=== PATIENT | female | born 1940 | race Caucasian/White ===

== ENCOUNTER → 2017-12-12 09:29 | Outpatient (CLI) | payer MEDICARE, SELFPAY ==
[2017-12-12 09:37] LABS: Mucous, Urine 0 SEEN /hpf (<or=2+); Red Blood Cells-Urine 0 SEEN /hpf (0-5)
[2017-12-12 12:11] LABS: Absolute Lymphocyte Count 1.45 X10^3/ul (0.83-4.51); Absolute Neutrophil Count 5.1 X10^3/uL (2.0-7.7); Basophil# 0.03 X10^3/uL; Basophil% 0.4 % (0-1); Eosinophil# 0.18 X10^3/uL; Eosinophils% 2.4 % (0-5); Hematocrit 45.4 % (37-47); Hemoglobin 14.3 g/dl (12.0-15.0); Lymphocyte # 1.45 X10^3/ul (4.0); Mean Corp Hgb Conc 31.5 g/gl (32-36); Mean Corpuscular Hgb 28.8 pg (27.0-32.0); Mean Corpuscular Volume 91.5 fL (81-99); Mean Platelet Vol. 11.3 fl (6.2-12.0); Monocyte# 0.86 X10^3/uL; Monocyte% 11.3 % (0-10); Neutrophil # 5.08 X10^3/uL (2.7-7.7); Neutrophil % 66.5 % (47-70); Platelet Count 234 K/mm3 (150-450); RBC Distribution Width CV 13.3 % (11.6-14.6); RBC Distribution Width SD 43.9 fl (35.1-43.9); Red Blood Count 4.96 M/mm3 (4.2-5.4); White Blood Count 7.6 K/mm3 (4.4-11.0)
[2017-12-12 12:17] LABS: Color, Urine Yellow (Yellow); Glucose, Dipstick Normal (Normal); Ketone-Dipstick Negative (Negative); Leukocyte Esterase-Dipstick 25 /ul (Negative); Nitrite-Dipstick Positive (Negative); Occult Blood-Urine Negative /ul (Negative); Protein-Dipstick Negative (Negative); Urine Bilirubin Dipstick Negative (Negative); Urine Clarity Sl. Cloudy (Clear); Urine Urobilinogen Normal (Normal); Urine pH 6.5 (5.0 - 8.0)
[2017-12-12 12:20] LABS: POSITIVE COUNT NO; POSITIVE DIFFERENTIAL NO; POSITIVE MORPHOLOGY NO
[2017-12-12 12:24] LABS: Bacteria 4+ /hpf (None Seen); White Blood Cells 0-5 SEEN /hpf (0-5)
[2017-12-12 12:25] LABS: Squamous Epithelial Cells - UA 0-5 SEEN /hpf (5-10)
[2017-12-12 12:48] LABS: Vitamin B12 688 pg/mL (211-911)
[2017-12-12 12:51] LABS: Hemoglobin A1c 7.2 % (4.2-6.3)
[2017-12-12 12:53] LABS: AST(SGOT) 19 U/L (15-37); Alanine Aminotransfer ALT/SGPT 24 U/L (13-56); Albumin, Serum 3.7 g/dL (3.2-5.0); Alkaline Phosphatase 79 U/L (45-117); Anion Gap 7 (5-15); BUN 22 mg/dL (7-18); BUN/Creat Ratio 23.1 RATIO (10-20); Calcium,Total 9.3 mg/dL (8.5-10.1); Chloride 104 mmol/L (98-107); Cholesterol 144 mg/dL (200); Creatinine, Serum 0.95 mg/dL (0.55-1.02); EST Glomerular Filtration Rate 61 mL/min (>60); Est Glom Filt Rate - Afr Amer 73 mL/min (>60); Globulin 3.8 g/dL (2.2-4.2); Glucose 140 mg/dL (74-106); High Density Lipoprotein 41 mg/dL; Magnesium 2.1 mg/dL (1.6-2.6); Potassium 4.3 mmol/L (3.5-5.1); Protein, Total 7.5 g/dL (6.4-8.2); Sodium Level 140 mmol/L (136-145); Thyroid Stim Hormone (TSH) 1.77 uIU/mL (0.358-3.74); Triglycerides 223 mg/dL; Very Low Density Lipoprotein 45 mg/dL (5-40)
[2017-12-12 13:27] LABS: Microalbumin,Random Urine 5.8 mg/L (NO RANGE EST.); Microalbumin:Creatinine Ratio 11.9 mg/g CRE (<30 mg/g CRE)
[2017-12-17 11:19] LABS: Vitamin B1, Thiamine 122.3 nmol/L (66.5-200.0)
== END ==
PROVIDERS: Family Provider Family Medicine; PCP Family Medicine; Visit Provider Family Medicine
DX: I10 Essential (primary) hypertension (principal); E78.5 Hyperlipidemia, unspecified; E11.40 Type 2 diabetes mellitus with diabetic neuropathy, unspecified; R25.2 Cramp and spasm; N39.0 Urinary tract infection, site not specified
CPT/HCPCS: 36415; 80053; 80061; 81001; 82043; 82570; 82607; 83036; 83735; 84425; 84443; 85025; 87086; 87088; 87186

== ENCOUNTER → 2018-03-24 11:02 | Outpatient (CLI) | payer MEDICARE, SELFPAY ==
[2018-03-24 12:50] LABS: Absolute Lymphocyte Count 1.28 X10^3/ul (0.83-4.51); Absolute Neutrophil Count 5.3 X10^3/uL (2.0-7.7); Basophil# 0.02 X10^3/uL; Basophil% 0.3 % (0-1); Eosinophil# 0.13 X10^3/uL; Eosinophils% 1.7 % (0-5); Hematocrit 43.6 % (37-47); Hemoglobin 13.7 g/dl (12.0-15.0); Lymphocyte # 1.28 X10^3/ul (4.0); Lymphocyte % 16.8 % (19-41); Mean Corp Hgb Conc 31.4 g/gl (32-36); Mean Corpuscular Hgb 28.7 pg (27.0-32.0); Mean Corpuscular Volume 91.2 fL (81-99); Mean Platelet Vol. 11.1 fl (6.2-12.0); Monocyte# 0.82 X10^3/uL; Monocyte% 10.8 % (0-10); Neutrophil # 5.33 X10^3/uL (2.7-7.7); Neutrophil % 70.1 % (47-70); POSITIVE COUNT NO; POSITIVE DIFFERENTIAL NO; POSITIVE MORPHOLOGY NO; Platelet Count 220 K/mm3 (150-450); RBC Distribution Width CV 13.4 % (11.6-14.6); RBC Distribution Width SD 44.2 fl (35.1-43.9); Red Blood Count 4.78 M/mm3 (4.2-5.4); White Blood Count 7.6 K/mm3 (4.4-11.0)
[2018-03-24 13:10] LABS: Hemoglobin A1c 7.3 % (4.2-6.3)
[2018-03-24 13:13] LABS: AST(SGOT) 25 U/L (15-37); Alanine Aminotransfer ALT/SGPT 35 U/L (13-56); Albumin, Serum 3.8 g/dL (3.2-5.0); Alkaline Phosphatase 63 U/L (45-117); Anion Gap 9 (5-15); BUN 24 mg/dL (7-18); BUN/Creat Ratio 23.3 RATIO (10-20); Calcium,Total 8.9 mg/dL (8.5-10.1); Chloride 106 mmol/L (98-107); Creatinine, Serum 1.03 mg/dL (0.55-1.02); EST Glomerular Filtration Rate 55 mL/min (>60); Est Glom Filt Rate - Afr Amer 67 mL/min (>60); Globulin 3.7 g/dL (2.2-4.2); Glucose 110 mg/dL (74-106); Protein, Total 7.5 g/dL (6.4-8.2); Sodium Level 145 mmol/L (136-145)
== END ==
PROVIDERS: Family Provider Family Medicine; PCP Family Medicine; Visit Provider Family Medicine
DX: E11.9 Type 2 diabetes mellitus without complications (principal); I10 Essential (primary) hypertension
CPT/HCPCS: 36415; 80053; 83036; 85025

== ENCOUNTER → 2018-06-25 09:20 | Outpatient (CLI) | payer MEDICARE, SELFPAY ==
[2018-06-25 09:24] LABS: Bacteria 0 SEEN /hpf (None Seen); Mucous, Urine 0 SEEN /hpf (<or=2+); Red Blood Cells-Urine 0 SEEN /hpf (0-5); Squamous Epithelial Cells - UA 0 SEEN /hpf (5-10)
[2018-06-25 12:04] LABS: Color, Urine Yellow (Yellow); Glucose, Dipstick Normal (Normal); Ketone-Dipstick Negative (Negative); Leukocyte Esterase-Dipstick 25 /ul (Negative); Nitrite-Dipstick Negative (Negative); Occult Blood-Urine Negative /ul (Negative); Protein-Dipstick Negative (Negative); Specific Gravity, Urine 1.015 (1.002-1.030); Urine Bilirubin Dipstick Negative (Negative); Urine Clarity Clear (Clear); Urine Urobilinogen Normal (Normal)
[2018-06-25 12:05] LABS: Absolute Lymphocyte Count 1.25 X10^3/ul (0.83-4.51); Absolute Neutrophil Count 6.3 X10^3/uL (2.0-7.7); Basophil# 0.05 X10^3/uL; Basophil% 0.6 % (0-1); Eosinophil# 0.11 X10^3/uL; Eosinophils% 1.3 % (0-5); Hematocrit 46.9 % (37-47); Hemoglobin 15.3 g/dl (12.0-15.0); Lymphocyte # 1.25 X10^3/ul (4.0); Lymphocyte % 14.8 % (19-41); Mean Corp Hgb Conc 32.6 g/gl (32-36); Mean Corpuscular Hgb 29.4 pg (27.0-32.0); Mean Platelet Vol. 11.8 fl (6.2-12.0); Monocyte# 0.77 X10^3/uL; Monocyte% 9.1 % (0-10); Neutrophil # 6.25 X10^3/uL (2.7-7.7); Neutrophil % 73.8 % (47-70); Platelet Count 199 K/mm3 (150-450); RBC Distribution Width CV 13.5 % (11.6-14.6); RBC Distribution Width SD 44.5 fl (35.1-43.9); Red Blood Count 5.21 M/mm3 (4.2-5.4); White Blood Count 8.5 K/mm3 (4.4-11.0)
[2018-06-25 12:09] LABS: White Blood Cells 0-5 SEEN /hpf (0-5)
[2018-06-25 12:12] LABS: POSITIVE COUNT NO; POSITIVE DIFFERENTIAL NO; POSITIVE MORPHOLOGY NO
[2018-06-25 12:15] LABS: AST(SGOT) 20 U/L (15-37); Alanine Aminotransfer ALT/SGPT 35 U/L (13-56); Albumin, Serum 3.7 g/dL (3.2-5.0); Alkaline Phosphatase 68 U/L (45-117); Anion Gap 12 (5-15); BUN 24 mg/dL (7-18); BUN/Creat Ratio 21.6 RATIO (10-20); Calcium,Total 9.2 mg/dL (8.5-10.1); Chloride 103 mmol/L (98-107); Cholesterol 141 mg/dL (200); Creatinine, Serum 1.11 mg/dL (0.55-1.02); EST Glomerular Filtration Rate 51 mL/min (>60); Est Glom Filt Rate - Afr Amer 61 mL/min (>60); Globulin 3.8 g/dL (2.2-4.2); Glucose 134 mg/dL (74-106); High Density Lipoprotein 40 mg/dL; Protein, Total 7.5 g/dL (6.4-8.2); Sodium Level 141 mmol/L (136-145); Triglycerides 220 mg/dL; Very Low Density Lipoprotein 44 mg/dL (5-40)
[2018-06-25 12:20] LABS: Hemoglobin A1c 6.9 % (4.2-6.3)
[2018-06-25 12:32] LABS: Microalbumin,Random Urine 6.2 mg/L (NO RANGE EST.); Microalbumin:Creatinine Ratio 8.5 mg/g CRE (<30 mg/g CRE)
== END ==
PROVIDERS: Family Provider Family Medicine; PCP Family Medicine; Visit Provider Family Medicine
DX: E11.9 Type 2 diabetes mellitus without complications (principal); I10 Essential (primary) hypertension; E78.5 Hyperlipidemia, unspecified
CPT/HCPCS: 36415; 80053; 80061; 81001; 82043; 82570; 83036; 85025

== ENCOUNTER → 2018-10-08 08:56 | Outpatient (CLI) | payer MEDICARE, SELFPAY ==
[2014-09-18 05:53] VITALS: BMI 35.2
[2018-10-08 10:03] LABS: Absolute Lymphocyte Count 1.48 X10^3/ul (0.83-4.51); Absolute Neutrophil Count 5.1 X10^3/uL (2.0-7.7); Basophil# 0.03 X10^3/uL; Basophil% 0.4 % (0-1); Eosinophil# 0.16 X10^3/uL; Eosinophils% 2.1 % (0-5); Hemoglobin 15.2 g/dl (12.0-15.0); Lymphocyte # 1.48 X10^3/ul (4.0); Lymphocyte % 19.7 % (19-41); Mean Corp Hgb Conc 32.3 g/gl (32-36); Mean Corpuscular Hgb 29.7 pg (27.0-32.0); Mean Corpuscular Volume 91.8 fL (81-99); Mean Platelet Vol. 11.2 fl (6.2-12.0); Monocyte# 0.71 X10^3/uL; Monocyte% 9.4 % (0-10); Neutrophil # 5.12 X10^3/uL (2.7-7.7); Platelet Count 217 K/mm3 (150-450); RBC Distribution Width CV 12.8 % (11.6-14.6); RBC Distribution Width SD 41.8 fl (35.1-43.9); Red Blood Count 5.12 M/mm3 (4.2-5.4); White Blood Count 7.5 K/mm3 (4.4-11.0)
[2018-10-08 10:12] LABS: POSITIVE COUNT NO; POSITIVE DIFFERENTIAL NO; POSITIVE MORPHOLOGY NO
[2018-10-08 10:21] LABS: Hemoglobin A1c 7.4 % (4.2-6.3)
[2018-10-08 10:24] LABS: ALB/GLOB Ratio 1.1 RATIO (0.9-2.4); AST(SGOT) 20 U/L (15-37); Alanine Aminotransfer ALT/SGPT 28 U/L (13-56); Albumin, Serum 3.8 g/dL (3.2-5.0); Alkaline Phosphatase 73 U/L (45-117); Anion Gap 7 (5-15); BUN 23 mg/dL (7-18); BUN/Creat Ratio 21.3 RATIO (10-20); Calcium,Total 8.9 mg/dL (8.5-10.1); Chloride 105 mmol/L (98-107); Cholesterol 176 mg/dL (200); Creatinine, Serum 1.08 mg/dL (0.55-1.02); EST Glomerular Filtration Rate 52 mL/min (>60); Est Glom Filt Rate - Afr Amer 63 mL/min (>60); Globulin 3.4 g/dL (2.2-4.2); Glucose 151 mg/dL (74-106); High Density Lipoprotein 42 mg/dL; Potassium 4.2 mmol/L (3.5-5.1); Protein, Total 7.2 g/dL (6.4-8.2); Sodium Level 142 mmol/L (136-145); Triglycerides 300 mg/dL; Very Low Density Lipoprotein 60 mg/dL (5-40)
== END ==
PROVIDERS: Family Provider Family Medicine; PCP Family Medicine; Visit Provider Family Medicine
DX: E11.9 Type 2 diabetes mellitus without complications (principal); I10 Essential (primary) hypertension
CPT/HCPCS: 36415; 80053; 80061; 83036; 85025

== ENCOUNTER → 2018-11-09 09:16 | Outpatient (CLI) | payer MEDICARE, SELFPAY ==
[2014-09-18 05:53] VITALS: BMI 35.2
[2018-11-09 10:11] LABS: Absolute Lymphocyte Count 1.33 X10^3/ul (0.83-4.51); Absolute Neutrophil Count 5.4 X10^3/uL (2.0-7.7); Basophil# 0.03 X10^3/uL; Basophil% 0.4 % (0-1); Eosinophil# 0.15 X10^3/uL; Hematocrit 47.3 % (37-47); Hemoglobin 15.3 g/dl (12.0-15.0); Lymphocyte # 1.33 X10^3/ul (4.0); Lymphocyte % 17.4 % (19-41); Mean Corp Hgb Conc 32.3 g/gl (32-36); Mean Corpuscular Hgb 29.7 pg (27.0-32.0); Mean Corpuscular Volume 91.7 fL (81-99); Mean Platelet Vol. 11.2 fl (6.2-12.0); Monocyte# 0.72 X10^3/uL; Monocyte% 9.4 % (0-10); Neutrophil # 5.38 X10^3/uL (2.7-7.7); Neutrophil % 70.5 % (47-70); Platelet Count 209 K/mm3 (150-450); RBC Distribution Width CV 12.9 % (11.6-14.6); RBC Distribution Width SD 42.6 fl (35.1-43.9); Red Blood Count 5.16 M/mm3 (4.2-5.4); White Blood Count 7.6 K/mm3 (4.4-11.0)
[2018-11-09 10:18] LABS: POSITIVE COUNT NO; POSITIVE DIFFERENTIAL NO; POSITIVE MORPHOLOGY NO
[2018-11-09 10:26] LABS: Hemoglobin A1c 7.6 % (4.2-6.3)
[2018-11-09 10:35] LABS: ALB/GLOB Ratio 0.9 RATIO (0.9-2.4); AST(SGOT) 20 U/L (15-37); Alanine Aminotransfer ALT/SGPT 30 U/L (13-56); Albumin, Serum 3.7 g/dL (3.2-5.0); Alkaline Phosphatase 72 U/L (45-117); Anion Gap 6 (5-15); BUN 22 mg/dL (7-18); BUN/Creat Ratio 22.3 RATIO (10-20); Calcium,Total 9.1 mg/dL (8.5-10.1); Chloride 106 mmol/L (98-107); Cholesterol 146 mg/dL (200); Creatinine, Serum 0.98 mg/dL (0.55-1.02); EST Glomerular Filtration Rate 58 mL/min (>60); Est Glom Filt Rate - Afr Amer 70 mL/min (>60); Globulin 3.9 g/dL (2.2-4.2); Glucose 151 mg/dL (74-106); High Density Lipoprotein 43 mg/dL; Potassium 4.3 mmol/L (3.5-5.1); Protein, Total 7.6 g/dL (6.4-8.2); Sodium Level 141 mmol/L (136-145); Triglycerides 194 mg/dL; Very Low Density Lipoprotein 39 mg/dL (5-40)
== END ==
PROVIDERS: Family Provider Family Medicine; PCP Family Medicine; Visit Provider Family Medicine
DX: E11.9 Type 2 diabetes mellitus without complications (principal); I10 Essential (primary) hypertension; E78.5 Hyperlipidemia, unspecified
CPT/HCPCS: 36415; 80053; 80061; 83036; 85025

== ENCOUNTER → 2019-02-08 | Outpatient (CLI) | payer MEDICARE, SELFPAY ==
[2014-09-18 05:53] VITALS: BMI 35.2
[2019-02-08 09:35] LABS: Mucous, Urine 0 SEEN /hpf (<or=2+); Red Blood Cells-Urine 0 SEEN /hpf (0-5)
[2019-02-08 12:00] LABS: Color, Urine Yellow (Yellow); Glucose, Dipstick Normal (Normal); Ketone-Dipstick Negative (Negative); Leukocyte Esterase-Dipstick 500 /ul (Negative); Nitrite-Dipstick Negative (Negative); Occult Blood-Urine Negative /ul (Negative); Protein-Dipstick Negative (Negative); Specific Gravity, Urine 1.005 (1.002-1.030); Urine Bilirubin Dipstick Negative (Negative); Urine Clarity Sl. Cloudy (Clear); Urine Urobilinogen Normal (Normal)
[2019-02-08 12:08] LABS: Bacteria RARE /hpf (None Seen); Squamous Epithelial Cells - UA 0-5 SEEN /hpf (5-10); White Blood Cells 5-10 SEEN /hpf (0-5)
[2019-02-08 12:10] LABS: Absolute Lymphocyte Count 1.47 X10^3/ul (0.83-4.51); Absolute Neutrophil Count 4.4 X10^3/uL (2.0-7.7); Basophil# 0.04 X10^3/uL; Basophil% 0.6 % (0-1); Eosinophil# 0.16 X10^3/uL; Eosinophils% 2.4 % (0-5); Hemoglobin 14.8 g/dl (12.0-15.0); Lymphocyte # 1.47 X10^3/ul (4.0); Lymphocyte % 21.9 % (19-41); Mean Corp Hgb Conc 32.2 g/gl (32-36); Mean Corpuscular Hgb 28.9 pg (27.0-32.0); Mean Corpuscular Volume 89.8 fL (81-99); Mean Platelet Vol. 11.7 fl (6.2-12.0); Monocyte# 0.63 X10^3/uL; Monocyte% 9.4 % (0-10); Neutrophil # 4.39 X10^3/uL (2.7-7.7); Neutrophil % 65.4 % (47-70); Platelet Count 216 K/mm3 (150-450); RBC Distribution Width SD 42.2 fl (35.1-43.9); Red Blood Count 5.12 M/mm3 (4.2-5.4); White Blood Count 6.7 K/mm3 (4.4-11.0)
[2019-02-08 12:14] LABS: POSITIVE COUNT NO; POSITIVE DIFFERENTIAL NO; POSITIVE MORPHOLOGY NO
[2019-02-08 12:18] LABS: ALB/GLOB Ratio 1.1 RATIO (0.9-2.4); AST(SGOT) 21 U/L (15-37); Alanine Aminotransfer ALT/SGPT 25 U/L (13-56); Albumin, Serum 3.8 g/dL (3.2-5.0); Alkaline Phosphatase 66 U/L (45-117); Anion Gap 4 (5-15); BUN 23 mg/dL (7-18); BUN/Creat Ratio 22.8 RATIO (10-20); Calcium,Total 8.9 mg/dL (8.5-10.1); Chloride 105 mmol/L (98-107); Creatinine, Serum 1.01 mg/dL (0.55-1.02); EST Glomerular Filtration Rate 56 mL/min (>60); Est Glom Filt Rate - Afr Amer 68 mL/min (>60); Globulin 3.5 g/dL (2.2-4.2); Glucose 157 mg/dL (74-106); Protein, Total 7.3 g/dL (6.4-8.2); Sodium Level 137 mmol/L (136-145)
[2019-02-08 12:24] LABS: Microalbumin,Random Urine 10.4 mg/L (NO RANGE EST.); Microalbumin:Creatinine Ratio 21.5 mg/g CRE (<30 mg/g CRE); Protein, Urine (Random) 6.6 mg/dL (<11.9); Protein:Creat Ratio 137 mg/g CRE (0-200)
[2019-02-08 12:25] LABS: Vitamin D,25 Hydroxy 13.9 ng/mL (29.95-100.01)
[2019-02-08 12:28] LABS: Hemoglobin A1c 7.2 % (4.2-6.3)
[2019-02-08 12:37] LABS: PTHIN 56.9 pg/mL (18.4-80.1)
== END | disposition home or self-care (01) ==
PROVIDERS: Family Provider Family Medicine; PCP Family Medicine; Referring Provider Family Medicine; Visit Provider Family Medicine
DX: E11.22 Type 2 diabetes mellitus with diabetic chronic kidney disease (principal); I12.9 Hypertensive chronic kidney disease with stage 1 through stage 4 chronic kidney disease, or unspecified chronic kidney disease; N18.3 Chronic kidney disease, stage 3 (moderate); E11.40 Type 2 diabetes mellitus with diabetic neuropathy, unspecified
CPT/HCPCS: 36415; 80053; 81001; 82043; 82306; 82570; 83036; 83970; 84156; 85025

== ENCOUNTER → 2019-02-09 | Outpatient (CLI) | payer MEDICARE, SELFPAY ==
[2014-09-18 05:53] VITALS: BMI 35.2
--- NOTE | 2019-02-09 11:00 | RAD_ITS ---
STUDY: X-RAY - PELVIS AND BILATERAL HIPS REASON FOR EXAM: Female, 78 years old. Hip pain TECHNIQUE: AP view of the pelvis.? 2 views of the right hip, and 2 views of the left hip were obtained. COMPARISON: None. FINDINGS: There is a non-specific bowel gas pattern. Normal visualized soft tissue structures. Normal bilateral iliac wings, sacroiliac joints and visualized sacrum. Normal bilateral superior and inferior pubic rami. Normal pubic symphysis. Normal bilateral ischial tuberosities. There are osteoarthritic changes of the right femoral head with marginal osteophyte formation. There is osteoarthritic spur formation of the right acetabular rim. There is moderate articular joint space narrowing of the right hip. There are osteoarthritic changes of the left femoral head with marginal osteophyte formation. There is osteoarthritic spur formation of the left acetabular rim. There is moderate articular joint space narrowing of the left hip. RAD/Hips B/L min 2 views w/ Pelvis IMPRESSION: Bilateral hip degenerative changes Electronically Signed: Prashant Egan DO at 10:58 EDT Tel , Service support ,
--- NOTE | 2019-02-09 11:00 | RAD_ITS ---
STUDY: X-RAY - LUMBAR SPINE REASON FOR EXAM: Female, 78 years old. Back pain TECHNIQUE: 5 view(s) of the lumbar spine were obtained. COMPARISON: None FINDINGS: Normal lumbar lordosis. There is no substantial scoliosis. There is a normal alignment of the vertebrae. There is multilevel endplate spondylosis of the lumbar vertebrae. There is multi-level degenerative disc disease with multi-level disc space narrowing. There is no demonstrated fracture. Borderline grade 1 anterolisthesis of L4 and L5. The soft tissue structures are unremarkable. RAD/L/S Spine Min 4 Views IMPRESSION: Degenerative changes of the spine, as detailed above. Electronically Signed: Prashant Egan DO at 9:45 EDT Tel , Service support ,
--- NOTE | 2019-02-09 11:00 | RAD_ITS ---
STUDY: X-RAY - SACROILIAC JOINTS REASON FOR EXAM: Female, 78 years old. Back pain TECHNIQUE: 3 view(s) of the sacroiliac joints were obtained. COMPARISON: None. FINDINGS: Normal bilateral sacroiliac joints. Normal visualized sacral ala and sacrum. Normal visualized iliac bones. Normal visualized soft tissue structures. RAD/S-I Jts 3 or More Views IMPRESSION: Normal x-ray examination of the bilateral sacroiliac joints. There are degenerative changes with disc space narrowing of the lumbosacral junction. There are degenerative changes of the left and right hips. Electronically Signed: Mick Hillman MD at 23:59 EDT , Service support ,
== END | disposition home or self-care (01) ==
PROVIDERS: Family Provider Family Medicine; PCP Family Medicine; Referring Provider Family Medicine; Visit Provider Family Medicine
DX: M54.9 Dorsalgia, unspecified (principal); M25.551 Pain in right hip; M25.552 Pain in left hip
CPT/HCPCS: 72110; 72202; 73521

== ENCOUNTER → 2019-03-02 | Outpatient (CLI) | payer MEDICARE, SELFPAY ==
--- NOTE | 2019-03-02 09:21 | RAD_ITS ---
PROCEDURE: Fluoroscopic guided Hip Injection DATE: March 02, 2019. INDICATION: Female, 78 years old. Chronic hip pain. PHYSICIAN: Kirill Rocha M.D. MEDICATIONS: 40 mg of Kenalog and 4 cc of 1% lidocaine. 2% Lidocaine administered subcutaneously for local anesthesia. ACCESS SITE: Right hip. NEEDLE: 22-gauge spinal needle. FLUOROSCOPY TIME (if supplied): (0:43) minutes/seconds FINDINGS: The risks, benefits, and alternatives to the procedure were explained to the patient. The specific risks of bleeding, infection, and neurovascular injury were detailed and accepted. Witnessed informed consent was obtained. A 22-gauge spinal needle was positioned under radiographic fluoroscopic localization. Approximately 2 cc of Isovue-300 instilled for localization purposes. Medication was then injected. The patient tolerated the procedure well without any immediate complications. RAD/Inj/Asp Mandeep Jt Should/Hip/Knee IMPRESSION: 1. Successful fluoroscopic guided hip injection. Electronically Signed: Kirill Rocha, at 11:10 EDT , Service support ,
== END | disposition home or self-care (01) ==
LOC: RAD 09:19
PROVIDERS: Family Provider Family Medicine; PCP Family Medicine; Referring Provider Family Medicine; Visit Provider Family Medicine
DX: M16.0 Bilateral primary osteoarthritis of hip (principal)
CPT/HCPCS: 20610; 77002

== ENCOUNTER → 2019-05-19 | Outpatient (CLI) | payer MEDICARE, SELFPAY ==
[2019-05-19 10:19] LABS: Absolute Lymphocyte Count 1.37 X10^3/uL (0.83-4.51); Absolute Neutrophil Count 5.2 X10^3/uL (2.0-7.7); Basophil# 0.05 X10^3/uL; Basophil% 0.7 % (0-1); Eosinophil# 0.12 X10^3/uL; Eosinophils% 1.6 % (0-5); Hematocrit 44.9 % (37-47); Hemoglobin 14.3 g/dL (12.0-15.0); Lymphocyte # 1.37 X10^3/ul (4.0); Lymphocyte % 18.1 % (19-41); Mean Corp Hgb Conc 31.8 g/dL (32-36); Mean Corpuscular Hgb 29.4 pg (27.0-32.0); Mean Corpuscular Volume 92.2 fL (81-99); Mean Platelet Vol. 11.3 fl (6.2-12.0); Monocyte% 10.6 % (0-10); NRBC Flagged by Analyzer 0 % (0-5); Neutrophil # 5.17 X10^3/uL (2.7-7.7); Neutrophil % 68.3 % (47-70); Platelet Count 209 K/mm3 (150-450); RBC Distribution Width CV 12.4 % (11.6-14.6); RBC Distribution Width SD 41.7 fl (35.1-43.9); Red Blood Count 4.87 M/mm3 (4.2-5.4); White Blood Count 7.6 K/mm3 (4.4-11.0)
[2019-05-19 10:39] LABS: ALB/GLOB Ratio 0.9 RATIO (0.9-2.4); AST(SGOT) 20 U/L (15-37); Alanine Aminotransfer ALT/SGPT 28 U/L (13-56); Albumin, Serum 3.5 g/dL (3.2-5.0); Alkaline Phosphatase 63 U/L (45-117); BUN 21 mg/dL (7-18); BUN/Creat Ratio 19.6 RATIO (10-20); Calcium,Total 9.2 mg/dL (8.5-10.1); Cholesterol 145 mg/dL (200); Creatinine, Serum 1.07 mg/dL (0.55-1.02); EST Glomerular Filtration Rate 53 mL/min (>60); Est Glom Filt Rate - Afr Amer 64 mL/min (>60); Globulin 3.7 g/dL (2.2-4.2); Glucose 130 mg/dL (74-106); Protein, Total 7.2 g/dL (6.4-8.2); Triglycerides 249 mg/dL
[2019-05-19 10:40] LABS: Anion Gap 6 (5-15); Chloride 102 mmol/L (98-107); High Density Lipoprotein 39 mg/dL; Potassium 3.8 mmol/L (3.5-5.1); Sodium Level 138 mmol/L (136-145); Very Low Density Lipoprotein 50 mg/dL (5-40)
[2019-05-19 10:58] LABS: Vitamin D,25 Hydroxy 60.2 ng/mL (29.95-100.01)
== END | disposition home or self-care (01) ==
LOC: MFPLAB 08:35
PROVIDERS: Family Provider Family Medicine; PCP Family Medicine; Referring Provider Family Medicine; Visit Provider Family Medicine
DX: E11.9 Type 2 diabetes mellitus without complications (principal); E78.5 Hyperlipidemia, unspecified; E55.9 Vitamin D deficiency, unspecified; I10 Essential (primary) hypertension
CPT/HCPCS: 36415; 80053; 80061; 82306; 83036; 85025

== ENCOUNTER 2019-07-12 09:25 | Day surgery (SDC) | payer MEDICARE, SELFPAY ==
[2014-09-18 05:53] VITALS: BMI 35.2
[2019-07-12] MEDS: MethylPREDNISolone Acetate 80 MG/ML Vial (10:20)
[2019-07-12 10:27] VITALS: BP 115/68; PULSE 66; RESP 16; TEMP 36.5; O2SAT 94; BMI 32.5
[2019-07-12] MEDS: Lactated Ringers 1,000 ML 100 ML IV (10:41)
[2019-07-12 10:45] LABS: Bedside Glucose 140 mg/dL (70-110)
--- NOTE | 2019-07-12 11:00 | RAD_ITS ---
PROCEDURE: Fluoroscopy for caudal block injection DATE OF EXAMINATION: 07/12/2019 INDICATION: Female, 79 years old. Pain PHYSICIAN: Dr. Wesly Lynn FLUOROSCOPY TIME (if supplied): (0:08) minutes/seconds RADIATION DOSAGE (If Supplied By Facility): ( 3.53 ) mGy, A caudal block injection was performed direction of Dr. Lynn incomplete to Dr. Lynn satisfaction. 2 fluoroscopic images were submitted for review. RAD/Fluor Guidance for Spine Inj IMPRESSION: 2 fluoroscopic images were obtained and completed to Dr. Lynn's satisfaction. Electronically Signed: Satish Hartmann, at 11:56 EDT Tel , Service support ,
[2019-07-12] MEDS: Bupivacaine 0.25% 30 ML Vial (11:21)
[2019-07-12 11:25] VITALS: BP 115/68; BP 94/49; PULSE 62; RESP 18; TEMP 36.1; O2SAT 97
[2019-07-12 11:30] VITALS: BP 115/68; BP 92/74; PULSE 77; RESP 18; O2SAT 96
[2019-07-12 11:35] VITALS: BP 105/50; BP 115/68; PULSE 65; RESP 18; O2SAT 96
[2019-07-12 11:40] VITALS: BP 104/49; BP 115/68; PULSE 55; RESP 18; TEMP 36.9; O2SAT 92
[2019-07-12 12:10] VITALS: BP 115/68
--- NOTE | 2019-07-12 12:42 | OP.PCM_ITS ---
Report of Operation Date of Procedure: 07/12/19 Description of Surgical Findings:: PREOPERATIVE DIAGNOSIS: Lumbosacral radiculopathy, lumbosacral degenerative disc disease, lumbosacral spinal stenosis POSTOPERATIVE DIAGNOSIS: Lumbar sacral radiculopathy, lumbosacral degenerative disc disease, lumbosacral spinal stenosis PROCEDURE PERFORMED: Caudal epidural steroid injection. ANESTHESIA: MAC. BLOOD LOSS: Minimal. COMPLICATIONS: None. DESCRIPTION OF PROCEDURE: History and physical of today was reviewed. Risks and benefits of the procedure were explained. The patient understood and agreed to proceed. Informed consent was obtained. IV inserted per routine protocol. The patient was taken to the operating room and placed in the prone position with a pillow positioned underneath the abdomen. The lower back and tailbone area was prepped and draped in a sterile fashion using iodine x3. Under f luoroscopy guidance on a lateral view, the caudal space was identified. The skin and subcutaneous tissue was anesthetized with approximately 3 mL of 1% lidocaine using a 25-gauge regular needle. Under direct visualization with fluoroscopy, using a 22-gauge 3-1/2-inch spinal needle, the needle was advanced via the skin through the sacral hiatus. The tip of the needle was passed through the sacrococcygeal ligament and advanced to approximately S4 area. After negative aspiration of blood or CSF, a total of 3 mL of contrast was injected to confirm correct placement of the needle as well as cephalad spread. The spread was followed to approximately L5 area. After confirmation on AP as well as lateral view and repeated negative aspiration, a total of 15 mL of preservative-free 0.125% Marcaine with 80 mg of Depo-Medrol was injected easily. The needle was then removed intact. The patient experienced no sign or symptoms of intrathecal or intravascular injection. The patient experienced no paresthesia. The procedure was completed without any apparent difficulty or any complications. The patient appeared to tolerate it well. ASSESSMENT AND PLAN: This is an 79-year-old female with lumbosacral radiculopathy, lumbosacral degenerative disc disease, lumbosacral spinal stenosis status post caudal epidural steroid injection patient will continue her current medications patient found approximately 2 weeks for reevaluation.
== END 2019-07-12 12:12 | disposition home or self-care (01) ==
LOC: SDC 09:33 → AC 10:20
PROVIDERS: Family Provider Family Medicine; PCP Family Medicine; Referring Provider Anesthesiology Pain Medicine; Visit Provider Anesthesiology Pain Medicine
PROC: 3E0S3BZ Introduction of Anesthetic Agent into Epidural Space, Percutaneous Approach (ICD-10-PCS; CPT 62282; principal; 2019-07-12 10:55)
DX: M47.27 Other spondylosis with radiculopathy, lumbosacral region (principal); M51.17 Intervertebral disc disorders with radiculopathy, lumbosacral region; M48.07 Spinal stenosis, lumbosacral region; M46.96 Unspecified inflammatory spondylopathy, lumbar region; M19.90 Unspecified osteoarthritis, unspecified site; E11.40 Type 2 diabetes mellitus with diabetic neuropathy, unspecified; E78.00 Pure hypercholesterolemia, unspecified; E11.22 Type 2 diabetes mellitus with diabetic chronic kidney disease; I12.9 Hypertensive chronic kidney disease with stage 1 through stage 4 chronic kidney disease, or unspecified chronic kidney disease; N18.9 Chronic kidney disease, unspecified; K21.9 Gastro-esophageal reflux disease without esophagitis; Z78.0 Asymptomatic menopausal state; Z79.891 Long term (current) use of opiate analgesic; Z79.84 Long term (current) use of oral hypoglycemic drugs; Z79.899 Other long term (current) drug therapy
CPT/HCPCS: 62323; 64483; 77003; 82962; J7120; J3490

== ENCOUNTER 2019-08-19 14:00 | Outpatient (RCR) | payer MEDICARE, SELFPAY ==
[2014-09-18 05:53] VITALS: BMI 35.2
--- NOTE | 2019-06-30 09:55 | HP.PTEVAL ---
Patient's Visit Information JACOB MCCALL is a 79 year old F referred to Physical Therapy by TAIWO Bland with a diagnosis of PAIN IN RIGHT HIP JOINT,LUMBOSACRAL RADICULOPATHY,DDD OF LUMBOSACRAL. Date of Evaluation: 06/30/19 Physical Therapist: Michael Pendleton, PT, Cert MDT, OCS - Visit Plan Frequency: 2x /Week Duration: 4 Weeks Plan: PT INTERVENTIONS AQUATICS HIP ROM /LUMBAR ,STRENGTHENING BLE,DLS,POSTURAL E'X,ENDURANCE - Subjective Findings: This 79 y/o female presents to physical therapy with lumbar and right hip pain. Patient has. back pain many years. Patient reports pain pain past 9 months with hip pain increasing and has radicular symptoms radiating right leg. Patient has had pain managenment with injections. Patient plans to have epidural injection next month. Aggraveting factors walking/standing ,stairs,lifting affdects ADL's. Alleviating facors sitting ,rest . Patient denies parathesai/tingling. Bowel/bladder -. Coughing/sneezing-. Patient pain affects slepping. Patient symmptoms affects housework tasks and ADL'S. Condition affects QOL.PMH: Bilateral THR. SOCIAL: . VOCATION: retired - Pain Left Pain Intensity (Out of 10): 3 Pain Intensity Range: 10 Right Lower Extremity Pain Intensity (Out of 10): 6 Pain Intensity Range: 10 Right Hip Pain Intensity (Out of 10): 6 Pain Intensity Range: 10 - Objective POSTURE: mild foward posture hip/knees flexed. GAIT: ambulates with antalgic gait decrease stance time RLE. PALPATION: tender SI/LS. SYMMTRIES: pelvis assymtries. FLEXABLITY: hams min loss,piriformis mod limited. PROM: HIP flexion 90 degrees pain,hip abd 30 degrees,IR 20 degrees. NEURO: denies parathesia/tingling reflexes L3-4,L4-5,L5-S1 1/3. MMT: quads/hams 4/5,hip flexion 3+/5 R ,L 4-/5,hip abd 3+/5 BILATERAL,ankle 4/5. + LUMBAR QUANDRANT R-L - Special Tests L/S Slump test left side: Negative L/S Slump test right side: Negative L/S Left Straight Leg Raise: Negative L/S Right Straight Leg Raise: Positive Lumbar Standing: Flexion - Mechanical Response: No effect Lumbar Standing: Flexion - Symptoms During Testing: No effect Lumbar Standing: Flexion - Symptoms After Testing: No effect Lumbar Standing: Extension - Mechanical Response: No effect Lumbar Standing: Extension - Symptoms During Testing: Increases Lumbar Standing: Extension - Symptoms After Testing: Worse R Hip Scour: Positive - Goals Goal 1:: Patient to be Independant with Aquatic PT Goal Time Frame: 4-6 Weeks Goal 2:: Patient decrease hip and back radicular symptoms by 50% or greater to improve QOL and function. Goal Time Frame: 4-6 Weeks Goal 3:: Patient to improve right ROM and lumbar ROM for function of recovery Goal Time Frame: 4-6 Weeks Goal 4:: Patient to increase strength hip to 4-/5 to improved gait Goal Time Frame: 4-6 Weeks Goal 5:: Patient to improve back owestry score by 5 points > to improve QOL Goal Time Frame: 4-6 Weeks - Rehabilitation Potential Physical Therapy Diagnosis: This patient has roght hip pain with possible DJD along with lateral stenosis with pain in right hip and leg worse with walking and standing with pain ,decrease ROM lumbar and hip ,strength hip thus benifit from skilled PT Rehabilitation Potential: Good - Anticipated Interventions Patient/Client Instruction: Educate patient on: Condition, Plan of Care For the Purpose of:: To decrease pain, To increase ROM, To improve muscle performance and motor function, To improve ability to perform ADL's, To increase tolerance to activity/condition/position, To improve ability of physical actions for home/community/work/leisure, To improve health of tissue, To decrease soft tissue restriction, To improve endurance, To improve ability to perform tasks related to life management Therapeutic Exercise to Include: Strength training, Postural training, Flexibilty training, In an aquatic setting, Active ROM, Dynamic Lumbar Stabilization Comment: HIP/KNEE For the Purpose of:: To decrease pain, To increase ROM, To improve muscle performance and motor function, To improve ability to perform ADL's, To increase tolerance to activity/condition/position, To improve ability of physical actions for home/community/work/leisure, To improve health of tissue, To increase flexibility/ROM, To improve endurance, To reduce risk of recurrence, To improve ability to perform tasks related to life management Thank you for the opportunity to evaluate your patient. For Medicare and Medicare HMO plans, please review the plan of care and approve it. It will need to be FAXED BACK to us at [phone] for Medicare purposes. For Medicare only, by signing this I certify the plan of care. Please let me know if there are questions or concerns regarding this plan of care. Physician Signature: Date:
--- NOTE | 2019-07-29 12:00 | HP.PTREVAL ---
Tabitha Turpin, SYLVESTER-C, It has been my pleasure to treat JACOB MCCALL over the last 7 visits for PAIN IN RIGHT HIP JOINT,LUMBOSACRAL RADICULOPATHY,DDD OF LUMBOSACRAL. Please see the progress note below for an update on the physical therapy plan of care! Subjective: My hip and back is better with and had epidural injections.Overall I feel better with ADLS' and housework. Standing limited ,walking extended distance limited Objective/Function: POSTURE: mild foward posture. GAIT: mild foward posture anatlgic gait. AROM:right hip flexion 95 degrees,hip abd 35 degrees,IR 30 degrees. MMT: quads/hams 4-/5,hip flexion 4-/5,abd 3+/5. LUMBAR ROM: flexion min ,extension mod loss ,side glides mod loss Plan Plan: CONT WITH POC 2XWK FOR 4WEEKS AQUATIC PT HIP/LUMBAR ROM.STRENGTHNEING,DLS ,ENDURANCE Goals Goal 1:: Patient to be Independant with Aquatic PT Goal Time Frame: 4-6 Weeks Goal Progress: Progressing Goal 2:: Patient decrease hip and back radicular symptoms by 80% or greater to improve QOL and function. Goal Time Frame: 4-6 Weeks Goal Progress: Progressing Goal 3:: Patient to improve right ROM and lumbar ROM for function of recovery Goal Time Frame: 4-6 Weeks Goal Progress: Progressing Goal 4:: Patient to increase strength hip to 4-/5 to improved gait Goal Time Frame: 4-6 Weeks Goal Progress: Progressing Goal 5:: Patient to improve back owestry score by 5 points > to improve QOL Goal Time Frame: 4-6 Weeks Goal Progress: Progressing Anticipated Interventions Patient/Client Instruction: Educate patient on: Condition, Plan of Care For the Purpose of:: To decrease pain, To increase ROM, To improve muscle performance and motor function, To improve ability to perform ADL's, To increase tolerance to activity/condition/position, To improve ability of physical actions for home/community/work/leisure, To improve health of tissue, To decrease soft tissue restriction, To improve endurance, To improve ability to perform tasks related to life management Therapeutic Exercise to Include: Strength training, Postural training, Flexibilty training, In an aquatic setting, Active ROM, Dynamic Lumbar Stabilization Comment: HIP/KNEE For the Purpose of:: To decrease pain, To increase ROM, To improve muscle performance and motor function, To improve ability to perform ADL's, To increase tolerance to activity/condition/position, To improve ability of physical actions for home/community/work/leisure, To improve health of tissue, To increase flexibility/ROM, To improve endurance, To reduce risk of recurrence, To improve ability to perform tasks related to life management Please do not hesitate to contact me at [phone] by phone or if you have questions or concerns regarding this new plan of care! Sincerely, Michael Pendleton, PT, Cert MDT, OCS
--- NOTE | 2019-08-31 10:58 | HP.PT.NRP ---
HP - Discharge Summary (1) - Patient Information JACOB MCCALL was seen in my office for initial evaluation on 06/30/19. The following Plan of Care was established for this patient: Initial Frequency: 2x /Week Initial Duration: 4 Weeks - Anticipated Interventions Patient/Client Instruction: Educate patient on: Condition, Plan of Care For the Purpose of:: To decrease pain, To increase ROM, To improve muscle performance and motor function, To improve ability to perform ADL's, To increase tolerance to activity/condition/position, To improve ability of physical actions for home/community/work/leisure, To improve health of tissue, To decrease soft tissue restriction, To improve endurance, To improve ability to perform tasks related to life management Therapeutic Exercise to Include: Strength training, Postural training, Flexibilty training, In an aquatic setting, Active ROM, Dynamic Lumbar Stabilization For the Purpose of:: To decrease pain, To increase ROM, To improve muscle performance and motor function, To improve ability to perform ADL's, To increase tolerance to activity/condition/position, To improve ability of physical actions for home/community/work/leisure, To improve health of tissue, To increase flexibility/ROM, To improve endurance, To reduce risk of recurrence, To improve ability to perform tasks related to life management This patient was last seen in our office . Pertinent comments regarding their Physical therapy will appear below: Patient was seen for PT Aquatic therapy for DLS,postural ex's,LE flexablity ,strengthening for 10 visits,then d/c due having injections. At this point I will be discontinuing this patient from physical therapy. I would be happy to see this patient again in the future if found appropriate by the physician. Thank you! Michael Pendleton, PT, Cert MDT, OCS
== END 2019-08-19 19:00 | disposition home or self-care (01) ==
LOC: PT 14:00
PROVIDERS: Family Provider Family Medicine; PCP Family Medicine; Referring Provider Nurse Practitioner Family; Visit Provider Nurse Practitioner Family
DX: M25.551 Pain in right hip (principal); M51.37 Other intervertebral disc degeneration, lumbosacral region; M47.817 Spondylosis without myelopathy or radiculopathy, lumbosacral region; M54.17 Radiculopathy, lumbosacral region; M48.07 Spinal stenosis, lumbosacral region; M46.96 Unspecified inflammatory spondylopathy, lumbar region
CPT/HCPCS: 97113; 97162; 97530

== ENCOUNTER → 2019-08-24 09:01 | Outpatient (CLI) | payer MEDICARE, SELFPAY ==
[2019-08-24 10:18] LABS: AST(SGOT) 18 U/L (15-37); Alanine Aminotransfer ALT/SGPT 24 U/L (13-56); Albumin, Serum 3.6 g/dL (3.2-5.0); Alkaline Phosphatase 70 U/L (45-117); Anion Gap 2 (5-15); BUN 25 mg/dL (7-18); Calcium,Total 9.4 mg/dL (8.5-10.1); Chloride 106 mmol/L (98-107); Creatinine, Serum 1.04 mg/dL (0.55-1.02); EST Glomerular Filtration Rate 54 mL/min (>60); Est Glom Filt Rate - Afr Amer 66 mL/min (>60); Globulin 3.6 g/dL (2.2-4.2); Glucose 137 mg/dL (74-106); Potassium 4.5 mmol/L (3.5-5.1); Protein, Total 7.2 g/dL (6.4-8.2); Sodium Level 141 mmol/L (136-145)
[2019-08-24 10:27] LABS: Hemoglobin A1c 7.3 % (4.2-6.3)
[2019-08-24 10:34] LABS: Vitamin D,25 Hydroxy 27.2 ng/mL (29.95-100.01)
== END ==
PROVIDERS: Family Provider Family Medicine; PCP Family Medicine; Referring Provider Family Medicine; Visit Provider Family Medicine
DX: E11.40 Type 2 diabetes mellitus with diabetic neuropathy, unspecified (principal); E55.9 Vitamin D deficiency, unspecified
CPT/HCPCS: 36415; 80053; 82306; 83036

== ENCOUNTER 2019-10-11 09:21 | Day surgery (SDC) | payer MEDICARE, SELFPAY ==
[2019-10-11] VITALS (7 sets, daily range): BP systolic 109–136; BP diastolic 55–68; PULSE 57–63; RESP 16–18; TEMP 36.6–37; O2SAT 92–95; BMI 33.7
[2019-10-11] MEDS: Lactated Ringers 1,000 ML 100 ML IV (10:04)
[2019-10-11 10:10] LABS: Bedside Glucose 158 mg/dL (70-110)
--- NOTE | 2019-10-11 10:57 | RAD_ITS ---
STUDY: Fluoroscopy LUMBAR SPINE REASON FOR EXAM: Female, 79 years old. Intra-articular injection L3-S1, 4 spots TECHNIQUE: Fluoroscopy 4 view(s) of the lumbar spine were obtained. The fluoroscopy time was not provided. COMPARISON: None FINDINGS: 4 images are demonstrated of the lumbar spine with localization needles at the level of L3-L4 and L5. RAD/L/S Spine Min 4 Views IMPRESSION: Fluoroscopic images with procedure in progress. Electronically Signed: Maria Isabel Ahumada MD at 17:54 EST Tel , Service support ,
[2019-10-11] MEDS: Bupivacaine 0.25% 30 ML Vial (11:02)
[2019-10-11] MEDS: MethylPREDNISolone Acetate 80 MG/ML Vial (11:02)
--- NOTE | 2019-10-11 11:07 | OP.PCM_ITS ---
Report of Operation Date of Procedure: 10/11/19 Description of Surgical Findings:: PREOPERATIVE DIAGNOSIS: Lumbosacral spondylosis, lumbosacral degenerative disc disease, lumbar facet arthropathy POSTOPERATIVE DIAGNOSIS: Lumbosacral spondylosis, lumbosacral degenerative disc disease, lumbar facet arthropathy PROCEDURE PERFORMED: Left-sided lumbar facet steroid injection, L3, L4, L5, and S1. ANESTHESIA: MAC. BLOOD LOSS: Minimal. COMPLICATIONS: None. DESCRIPTION OF PROCEDURE: History and physical of today was reviewed. Risks and benefits of the procedure were explained. The patient understood and agreed to proceed. Informed consent was obtained. IV inserted per routine protocol. The patient was taken to the operating room and placed in the prone position with a pillow positioned underneath the abdomen. The left side of her lower back was prepped and draped in a sterile fashion using iodine x3. Under fluoroscopy on oblique view, the L3 through S1 vertebral bodies were visualized. The skin and subcutaneous tissue was anesthetized with approximately 5 mL of 1% lidocaine using a 25-gauge regular needle. Under direct visualization with fluoroscopy, at approximately 25-degree angle starting on the left L3, ending on the left S1, passing through the L4 and L5, using a 22-gauge 3-1/2-inch spinal needle, the needle was advanced via the skin. The tip of the needle was maneuvered and directed towards the superior medial gutter of the transverse process at the vicinity of the medial branch. Once tip of the needle was in contact with the bone, the needle was pulled approximately 2 mm off the bone. A fter negative aspiration of blood or CSF and confirmation on AP as well as oblique view, a total of 8 mL of preservative-free 0.25% Marcaine with 80 mg of Depo-Medrol was injected in divided doses between those four levels. The needles were then removed intact. The patient experienced no sign or symptoms of intrathecal or intravascular injection. The patient experienced no paresthesia. The procedure was completed without any apparent difficulty or any complications. The patient appeared to tolerate it well. ASSESSMENT AND PLAN: This is a 79-year-old female with lumbosacral spondylosis, lumbosacral degenerative disc disease, lumbar facet arthropathy status post left-sided lumbar facet steroid injection L3-S1 patient will continue her current medications patient found approximately 2 weeks for reevaluation
== END 2019-10-11 12:02 | disposition home or self-care (01) ==
LOC: SDC 09:30 → AC 09:30
PROVIDERS: Family Provider Family Medicine; PCP Family Medicine; Referring Provider Anesthesiology Pain Medicine; Visit Provider Anesthesiology Pain Medicine
PROC: 3E0T3BZ Introduction of Anesthetic Agent into Peripheral Nerves and Plexi, Percutaneous Approach (ICD-10-PCS; CPT 64493; principal; 2019-10-11 10:40)
DX: M47.27 Other spondylosis with radiculopathy, lumbosacral region (principal); M51.17 Intervertebral disc disorders with radiculopathy, lumbosacral region; M46.96 Unspecified inflammatory spondylopathy, lumbar region; M48.07 Spinal stenosis, lumbosacral region; E11.22 Type 2 diabetes mellitus with diabetic chronic kidney disease; E11.40 Type 2 diabetes mellitus with diabetic neuropathy, unspecified; I12.9 Hypertensive chronic kidney disease with stage 1 through stage 4 chronic kidney disease, or unspecified chronic kidney disease; N18.9 Chronic kidney disease, unspecified; M19.90 Unspecified osteoarthritis, unspecified site; E78.5 Hyperlipidemia, unspecified; K21.9 Gastro-esophageal reflux disease without esophagitis; Z79.84 Long term (current) use of oral hypoglycemic drugs; Z79.891 Long term (current) use of opiate analgesic; Z79.899 Other long term (current) drug therapy
CPT/HCPCS: 01992; 64493; 64494; 64495; 64483; 72110; 82962; J7120

== ENCOUNTER 2019-11-08 06:51 | Day surgery (SDC) | payer MEDICARE, SELFPAY ==
[2019-10-11 09:47] VITALS: BMI 33.7
--- NOTE | 2019-11-08 07:00 | RAD_ITS ---
PROCEDURE: Right L3-S1 facet joint block. DATE OF EXAMINATION: November 08, 2019. INDICATION: Female, 79 years old. Chronic back pain. FLUOROSCOPY TIME (if supplied): (13 seconds) minutes/seconds Intraoperative fluoroscopic services provided for right L3-S1 facet joint block. RAD/L/S Spine Min 4 Views IMPRESSION: Intraoperative imaging provided for right L3-S1 facet joint block. Electronically Signed: Kirill Rocha, at 12:23 EST , Service support ,
[2019-11-08 07:21] VITALS: BP 129/63; PULSE 60; RESP 15; TEMP 36.9; O2SAT 97; BMI 33.9
[2019-11-08] MEDS: Lactated Ringers 1,000 ML 100 ML IV (07:34)
[2019-11-08 07:40] LABS: Bedside Glucose 149 mg/dL (70-110)
[2019-11-08] MEDS: MethylPREDNISolone Acetate 80 MG/ML Vial (07:53)
[2019-11-08] MEDS: Bupivacaine 0.25% 30 ML Vial (07:58)
[2019-11-08 08:05] VITALS: BP 129/63; BP 135/114; PULSE 67; RESP 16; TEMP 36.9; O2SAT 94
[2019-11-08 08:10] VITALS: BP 120/59; BP 129/63; PULSE 65; RESP 16; O2SAT 94
[2019-11-08 08:15] VITALS: BP 129/63; BP 136/63; PULSE 60; RESP 16; O2SAT 96
[2019-11-08 08:20] VITALS: BP 124/74; BP 129/63; PULSE 59; RESP 16; TEMP 36.6; O2SAT 98
[2019-11-08 08:40] VITALS: BP 129/63
--- NOTE | 2019-11-08 13:54 | OP.PCM_ITS ---
Report of Operation Date of Procedure: 11/08/19 Description of Surgical Findings:: PROCEDURE: Right-sided lumbar facet steroid injection L3, L4, L5, S1 PREOPERATIVE DIAGNOSIS: Lumbosacral spondylosis, lumbosacral degenerative disc disease, and lumbar facet arthropathy POSTOPERATIVE DIAGNOSIS: Lumbosacral spondylosis, lumbosacral degenerative disc disease, and lumbar facet arthropathy ANESTHESIA: MAC COMPLICATIONS: None BLOOD LOSS: Minimal PROCEDURE IN DETAIL: History and physical today was reviewed. Risks and benefits of the procedure were explained. The patient understood, agreed to our procedure, and informed consent was obtained. IV inserted per routine protocol. The patient was taken to the operating room, placed in a prone position with a pillow positioned underneath the abdomen. The right side of his lower back was prepped and draped in a sterile fashion using iodine x3. Under fluoroscopy guidance, on AP view, L3 through S1 vertebral bodies were visualized. Skin and subcutaneous tissues were anesthetized with approximately 5 mL of 1% lidocaine using a 25-gauge regular needle. Under direct visualization with fluoroscopy at approximately 25-degree angle, starting on the right L3, ending on the right S1, passing through the L4-L5 using a 22-gauge 3 1/2-inch spinal needle, the needle was advanced via the skin. The tip of the needle was maneuvered and directed towards the superior and medial gutter of the transverse process at the vicinity of the medial branch. Once the tip of the needle was in contact with the bone, the needle pulled approximately 2 mm off the bone. After negative aspiration of blood with CSF and confirmation of AP as well as oblique view, a total of 8 mL of preservative-free 0.25% Marcaine with 80 mg of Depo- Medrol was injection in divided doses between those 4 levels. The needles were then removed intact. The patient experienced no signs or symptoms intrathecal, intravascular injection. The patient experienced no paraesthesia. The procedure was completed without any apparent difficult, any complication. The patient appeared to tolerate well. ASSESSMENT AND PLAN: This is a 79-year-old female with Lumbosacral spondylosis, lumbosacral degenerative disc disease, and lumbar facet arthropathy, status post right-sided lumbar facet steroid injection L3 through S1. The patient will continue her current medications. The patient will follow in approximately 2 weeks for reevaluation.
== END 2019-11-08 08:49 | disposition home or self-care (01) ==
LOC: SDC 06:54 → AC 06:56
PROVIDERS: PCP Family Medicine; Referring Provider Anesthesiology Pain Medicine; Visit Provider Anesthesiology Pain Medicine
PROC: 3E0T3BZ Introduction of Anesthetic Agent into Peripheral Nerves and Plexi, Percutaneous Approach (ICD-10-PCS; CPT 64493; principal; 2019-11-08 08:05)
DX: M47.27 Other spondylosis with radiculopathy, lumbosacral region (principal); M51.17 Intervertebral disc disorders with radiculopathy, lumbosacral region; M46.96 Unspecified inflammatory spondylopathy, lumbar region; M48.07 Spinal stenosis, lumbosacral region; M19.90 Unspecified osteoarthritis, unspecified site; E11.40 Type 2 diabetes mellitus with diabetic neuropathy, unspecified; E11.22 Type 2 diabetes mellitus with diabetic chronic kidney disease; I12.9 Hypertensive chronic kidney disease with stage 1 through stage 4 chronic kidney disease, or unspecified chronic kidney disease; N18.9 Chronic kidney disease, unspecified; E78.5 Hyperlipidemia, unspecified; K21.9 Gastro-esophageal reflux disease without esophagitis; Z79.891 Long term (current) use of opiate analgesic; Z79.899 Other long term (current) drug therapy
CPT/HCPCS: 64493; 64494; 64495; 64483; 72110; 82962; J7120

== ENCOUNTER → 2019-12-20 09:34 | Outpatient (CLI) | payer MEDICARE, SELFPAY ==
[2019-12-20 12:45] LABS: Absolute Lymphocyte Count 1.44 X10^3/uL (0.83-4.51); Absolute Neutrophil Count 5.3 X10^3/uL (2.0-7.7); Basophil# 0.06 X10^3/uL; Basophil% 0.8 % (0-1); Eosinophil# 0.14 X10^3/uL; Eosinophils% 1.8 % (0-5); Hematocrit 47.1 % (37-47); Hemoglobin 14.8 g/dL (12.0-15.0); Lymphocyte # 1.44 X10^3/ul (4.0); Lymphocyte % 18.2 % (19-41); Mean Corp Hgb Conc 31.4 g/dL (32-36); Mean Corpuscular Hgb 29.1 pg (27.0-32.0); Mean Corpuscular Volume 92.7 fL (81-99); Mean Platelet Vol. 11.5 fl (6.2-12.0); Monocyte# 0.89 X10^3/uL; Monocyte% 11.3 % (0-10); NRBC Flagged by Analyzer 0 % (0-5); Neutrophil % 66.9 % (47-70); Platelet Count 225 K/mm3 (150-450); RBC Distribution Width CV 12.7 % (11.6-14.6); RBC Distribution Width SD 43.3 fl (35.1-43.9); Red Blood Count 5.08 M/mm3 (4.2-5.4); White Blood Count 7.9 K/mm3 (4.4-11.0)
[2019-12-20 13:04] LABS: Vitamin D,25 Hydroxy 43.6 ng/mL
[2019-12-20 13:26] LABS: Hemoglobin A1c 7.5 % (4.2-6.3)
[2019-12-20 13:29] LABS: ALB/GLOB Ratio 0.9 RATIO (0.9-2.4); AST(SGOT) 16 U/L (15-37); Alanine Aminotransfer ALT/SGPT 22 U/L (13-56); Albumin, Serum 3.4 g/dL (3.2-5.0); Alkaline Phosphatase 66 U/L (45-117); Anion Gap 7 (5-15); BUN 20 mg/dL (7-18); BUN/Creat Ratio 19.8 RATIO (10-20); Calcium,Total 9.2 mg/dL (8.5-10.1); Chloride 105 mmol/L (98-107); Cholesterol 142 mg/dL (200); Creatinine, Serum 1.01 mg/dL (0.55-1.02); EST Glomerular Filtration Rate 56 mL/min (>60); Est Glom Filt Rate - Afr Amer 68 mL/min (>60); Globulin 3.7 g/dL (2.2-4.2); Glucose 132 mg/dL (74-106); High Density Lipoprotein 38 mg/dL; Potassium 4.2 mmol/L (3.5-5.1); Protein, Total 7.1 g/dL (6.4-8.2); Sodium Level 140 mmol/L (136-145); Triglycerides 215 mg/dL; Very Low Density Lipoprotein 43 mg/dL (5-40)
[2019-12-20 16:54] LABS: Microalbumin,Random Urine 70.8 mg/L (NO RANGE EST.); Microalbumin:Creatinine Ratio 129.4 mg/g CRE (<30 mg/g CRE); Protein, Urine (Random) 17.8 mg/dL (<11.9); Protein:Creat Ratio 325 mg/g CRE (0-200)
== END ==
PROVIDERS: PCP Family Medicine; Referring Provider Family Medicine; Visit Provider Family Medicine
DX: E11.22 Type 2 diabetes mellitus with diabetic chronic kidney disease (principal); I12.9 Hypertensive chronic kidney disease with stage 1 through stage 4 chronic kidney disease, or unspecified chronic kidney disease; N18.3 Chronic kidney disease, stage 3 (moderate); E78.5 Hyperlipidemia, unspecified; E55.9 Vitamin D deficiency, unspecified
CPT/HCPCS: 36415; 80053; 80061; 82043; 82306; 82570; 83036; 84156; 85025

== ENCOUNTER → 2020-04-25 08:33 | Outpatient (CLI) | payer MEDICARE, SELFPAY ==
[2020-04-25 08:37] LABS: Mucous, Urine 0 SEEN /hpf (<or=2+)
[2020-04-25 09:53] LABS: Color, Urine Yellow (Yellow); Glucose, Dipstick Normal (Normal); Ketone-Dipstick Negative (Negative); Leukocyte Esterase-Dipstick 500 /ul (Negative); Nitrite-Dipstick Positive (Negative); Occult Blood-Urine 10 /ul (Negative); Protein-Dipstick 30 mg/dl (Negative); Specific Gravity, Urine 1.005 (1.002-1.030); Urine Bilirubin Dipstick Negative (Negative); Urine Clarity Sl. Cloudy (Clear); Urine Urobilinogen Normal (Normal)
[2020-04-25 09:55] LABS: Absolute Lymphocyte Count 1.16 X10^3/uL (0.83-4.51); Absolute Neutrophil Count 4.3 X10^3/uL (2.0-7.7); Basophil# 0.04 X10^3/uL; Basophil% 0.6 % (0-1); Eosinophils% 3.1 % (0-5); Hematocrit 43.9 % (37-47); Hemoglobin 13.6 g/dL (12.0-15.0); Lymphocyte # 1.16 X10^3/ul (4.0); Lymphocyte % 18.1 % (19-41); Mean Corpuscular Hgb 29.1 pg (27.0-32.0); Mean Corpuscular Volume 93.8 fL (81-99); Mean Platelet Vol. 11.4 fl (6.2-12.0); Monocyte# 0.73 X10^3/uL; Monocyte% 11.4 % (0-10); NRBC Flagged by Analyzer 0 % (0-5); Neutrophil # 4.25 X10^3/uL (2.7-7.7); Neutrophil % 66.3 % (47-70); Platelet Count 210 K/mm3 (150-450); RBC Distribution Width SD 44.1 fl (35.1-43.9); Red Blood Count 4.68 M/mm3 (4.2-5.4); White Blood Count 6.4 K/mm3 (4.4-11.0)
[2020-04-25 10:00] LABS: Bacteria 4+ /hpf (None Seen); Red Blood Cells-Urine 0-5 SEEN /hpf (0-5); Squamous Epithelial Cells - UA 0-5 SEEN /hpf (5-10); White Blood Cells 25-50 SEEN /hpf (0-5)
[2020-04-25 10:08] LABS: AST(SGOT) 21 U/L (15-37); Alanine Aminotransfer ALT/SGPT 26 U/L (13-56); Albumin, Serum 3.5 g/dL (3.2-5.0); Alkaline Phosphatase 51 U/L (45-117); Anion Gap 4 (5-15); BUN 24 mg/dL (7-18); BUN/Creat Ratio 24.1 RATIO (10-20); Calcium,Total 8.9 mg/dL (8.5-10.1); Chloride 105 mmol/L (98-107); EST Glomerular Filtration Rate 57 mL/min (>60); Est Glom Filt Rate - Afr Amer 69 mL/min (>60); Globulin 3.4 g/dL (2.2-4.2); Glucose 153 mg/dL (74-106); Phosphorus 3.3 mg/dL (2.5-4.9); Potassium 3.9 mmol/L (3.5-5.1); Protein, Total 6.9 g/dL (6.4-8.2); Sodium Level 138 mmol/L (136-145)
[2020-04-25 10:12] LABS: Hemoglobin A1c 6.9 % (3.8-5.6)
[2020-04-25 10:25] LABS: Microalbumin,Random Urine 78.7 mg/L (NO RANGE EST.); Microalbumin:Creatinine Ratio 112.4 mg/g CRE (<30 mg/g CRE); Protein, Urine (Random) 19.3 mg/dL (<11.9); Protein:Creat Ratio 276 mg/g CRE (0-200)
[2020-04-26 09:42] LABS: Cholesterol 140 mg/dL (200); High Density Lipoprotein 38 mg/dL; Triglycerides 229 mg/dL; Very Low Density Lipoprotein 46 mg/dL (5-40)
[2020-04-26 13:44] LABS: Vitamin D,25 Hydroxy 46.8 ng/mL
== END ==
PROVIDERS: PCP Family Medicine; Referring Provider Family Medicine; Visit Provider Family Medicine
DX: I12.9 Hypertensive chronic kidney disease with stage 1 through stage 4 chronic kidney disease, or unspecified chronic kidney disease (principal); E11.22 Type 2 diabetes mellitus with diabetic chronic kidney disease; N18.3 Chronic kidney disease, stage 3 (moderate); E78.5 Hyperlipidemia, unspecified; E55.9 Vitamin D deficiency, unspecified; R82.81 Pyuria
CPT/HCPCS: 36415; 80053; 80061; 81001; 82043; 82306; 82570; 83036; 83970; 84100; 84156; 85025; 87086; 87088; 87186

== ENCOUNTER → 2020-06-01 14:15 | Outpatient (CLI) | payer MEDICARE, SELFPAY ==
[2020-06-01 17:51] LABS: Anion Gap 8 (5-15); BUN 21 mg/dL (7-18); BUN/Creat Ratio 17.9 RATIO (10-20); Calcium,Total 9.1 mg/dL (8.5-10.1); Chloride 105 mmol/L (98-107); Creatinine, Serum 1.17 mg/dL (0.55-1.02); EST Glomerular Filtration Rate 47 mL/min (>60); Est Glom Filt Rate - Afr Amer 57 mL/min (>60); Glucose 147 mg/dL (74-106); Potassium 3.8 mmol/L (3.5-5.1); Sodium Level 140 mmol/L (136-145)
== END ==
PROVIDERS: PCP Family Medicine; Referring Provider Family Medicine; Visit Provider Family Medicine
DX: Z01.818 Encounter for other preprocedural examination (principal)
CPT/HCPCS: 36415; 80048

== ENCOUNTER 2020-07-15 10:07 | Emergency (ER) | payer MEDICARE, SELFPAY ==
[2020-07-15 10:09] VITALS: BP 131/59; PULSE 80; RESP 18; TEMP 36.2; O2SAT 97; BMI 33.3
--- NOTE | 2020-07-15 10:11 | EKG12_ITS ---
Test Reason : Blood Pressure : / mmHG Vent. Rate : 078 BPM Atrial Rate : 078 BPM P-R Int : 180 ms QRS Dur : 092 ms QT Int : 380 ms P-R-T Axes : 044 006 066 degrees QTc Int : 433 ms Normal sinus rhythm with sinus arrhythmia Normal ECG Confirmed by SUSAN LEE, JORDON ([id number]), magazine editor FREDIS TOVAR ([id number]) on 07/18/2020 12:30:28 PM Referred By: PRECIOUS Confirmed By:JORDON DAVIS MD
--- NOTE | 2020-07-15 10:11 | RAD_ITS ---
STUDY: X-RAY CHEST REASON FOR EXAM: Female, 80 years old. Dose of breath and fever. TECHNIQUE: Single AP portable view of the chest. COMPARISON: 09/17/2014. FINDINGS: The lungs are clear and expanded. There is no demonstrated pleural abnormality. The cardiac silhouette is within normal limits. Normal mediastinum and demetria. Normal visualized pulmonary arteries. There is atherosclerotic calcification of the aortic arch with tortuosity. There are degenerative changes of the visualized thoracic spine. There is degenerative osteoarthritis of the bilateral shoulders. There is no demonstrated abnormality of the visualized soft tissue structures of the upper abdomen. RAD/Chest 1 View (Portable) IMPRESSION: No active pulmonary disease. Electronically Signed: Franco Sandy MD at 11:30 EDT Tel , Service support ,
--- NOTE | 2020-07-15 10:29 | ED.DCSUM_ITS ---
History of Present Illness Chief Complaint: Shortness of Breath Informant: Patient, Family Onset: Days Narrative: Patient is here with they report that on night the patient seemed to have runny nose fever and cough, symptoms persisted into Friday, she s eemed febrile today and the brought her into the hospital. She indicates the cough is harsh and dry nonproductive the rhinorrhea is somewhat chronic, She has no history of [place] PE DVT COPD, no coronavirus exposures. She is generally eating and drinking well bowel and bladder habits unremarkable other than to note she is urinating quite frequently she is concerned she may have a UTI, she does report she had eyelid surgery about 8 weeks ago and had a coronavirus test done that was negative Past Medical History - Allergies and Home Meds Allergies/Adverse Reactions: Allergies Penicillins Allergy (Verified 07/15/20 10:09) Swelling Sulfa (Sulfonamide Antibiotics) Allergy (Verified 07/15/20 10:09) Unknown Primary Care Physician: Satish Berry MD [Primary Care Provider] - Past Medical History: - - Includes as above Smoking Status: Never smoker Review of Systems General: Reports: Fever. Denies: Chills, Sweats Eyes: Denies: Visual changes - bilaterally, Diplopia ENT: Reports: Rhinorrhea. Denies: Sore throat Cardiovascular: Denies: Chest pain, Palpitations Respiratory: Reports: Cough. Denies: Dyspnea, Dyspnea on exertion Gastrointestinal: Denies: Abdominal pain, Nausea, Vomiting, Diarrhea, Melena, Hematochezia Genitourinary: Denies: Dysuria, Hematuria, Frequency Musculoskeletal: Denies: Back pain, Extremity Pain Skin: Denies: Rash, Wounds Neurological: Denies: Headache, Weakness, Numbness Physical Exam Vital Signs/Narrative: Vital Signs Temp Pulse Resp BP Pulse Ox 07/15/20 10:09 97.2 F L 80 18 131/59 H 97 General: Well nourished, Well developed, No Acute Distress Head: Normocephalic, Atraumatic Eyes: Perrl, EOMI ENT: Moist mucous membranes, No rhinorrhea Neck: Supple, Nontender Cardiovascular: Regular rate, Regular rhythm, No murmurs Respiratory: No distress, CTA bilaterally, Chest nontender Abdomen: Soft, Nontender, Nondistended, Normal bowel sounds Back: Nontender, Normal Inspection Extremities: Nontender, No edema Skin: Normal color, No rash Neurological: Alert, Oriented x3, Cranial nerves II-XII grossly intact, Normal Strength, Normal Sensation Psychological: Normal affect, Normal Mood Diagnostic/Tx/Re-eval - Medical Decision Making Clinically the patient is in no distress her vital signs are unremarkable her physical exam is unremarkable she has a dry cough here this nonproductive given all the above ED screening evaluation, again she has no history of [place] PE DVT COPD no exposures to coronavirus Patient did undergo coronavirus screen those results are not available, the patient's ED screening evaluation is generally unremarkable shows reports except showing signs of UTI chest x-ray unremarkable her pulse ox is 96% on room air we discussed the broad differential we discussed admission versus discharge she does not wish to be admitted she wants to go home for outpatient management she understands the coronavirus screen will come back in a few days she will be started on IV Cipro oral Cipro for the UTI urine culture results to be checked by outpatient providers and return for change in symptoms Home stable declined admission Final impression urinary tract infection, runny nose and cough COVID screen completed ED Disposition - Plan for ED Patient: Diagnosis: UTI coronavirus screen Instructions: ED Upper Resp Infec No Abx Tx Prescriptions: Ciprofloxacin [Cipro] 500 mg PO BID #14 tab Prescription Printed Referrals: Satish Berry MD [Primary Care Provider] -
[2020-07-15 10:46] VITALS: BP 118/58; PULSE 78; RESP 18; O2SAT 95
[2020-07-15 11:01] LABS: Color, Urine Yellow (Yellow); Glucose, Dipstick Normal (Normal); Ketone-Dipstick Negative (Negative); Leukocyte Esterase-Dipstick 500 /ul (Negative); Nitrite-Dipstick Positive (Negative); Occult Blood-Urine 150 /ul (Negative); Protein-Dipstick 500 mg/dl (Negative); Specific Gravity, Urine 1.015 (1.002-1.030); Urine Bilirubin Dipstick Negative (Negative); Urine Clarity Cloudy (Clear); Urine Urobilinogen Normal (Normal)
[2020-07-15 11:06] LABS: Absolute Lymphocyte Count 0.79 X10^3/uL (0.83-4.51); Absolute Neutrophil Count 9.5 X10^3/uL (2.0-7.7); Basophil# 0.02 X10^3/uL; Basophil% 0.2 % (0-1); Eosinophil# 0.05 X10^3/uL; Eosinophils% 0.4 % (0-5); Hematocrit 42.4 % (37-47); Hemoglobin 13.5 g/dL (12.0-15.0); Lymphocyte # 0.79 X10^3/ul (4.0); Lymphocyte % 6.7 % (19-41); Mean Corp Hgb Conc 31.8 g/dL (32-36); Mean Corpuscular Hgb 28.9 pg (27.0-32.0); Mean Corpuscular Volume 90.8 fL (81-99); Mean Platelet Vol. 10.8 fl (6.2-12.0); Monocyte# 1.38 X10^3/uL; Monocyte% 11.7 % (0-10); NRBC Flagged by Analyzer 0 % (0-5); Neutrophil # 9.46 X10^3/uL (2.7-7.7); Neutrophil % 79.9 % (47-70); Platelet Count 207 K/mm3 (150-450); RBC Distribution Width CV 12.7 % (11.6-14.6); RBC Distribution Width SD 42.8 fl (35.1-43.9); Red Blood Count 4.67 M/mm3 (4.2-5.4); White Blood Count 11.8 K/mm3 (4.4-11.0)
[2020-07-15 11:19] LABS: Anion Gap 7 (5-15); BUN 31 mg/dL (7-18); BUN/Creat Ratio 21.1 RATIO (10-20); Chloride 107 mmol/L (98-107); Creatinine, Serum 1.47 mg/dL (0.55-1.02); EST Glomerular Filtration Rate 36 mL/min (>60); Est Glom Filt Rate - Afr Amer 44 mL/min (>60); Estimated Creatinine Clearance 27.92 ml/min; Glucose 256 mg/dL (74-106); Potassium 3.8 mmol/L (3.5-5.1); Sodium Level 141 mmol/L (136-145)
[2020-07-15 11:24] LABS: BNP,B-Type NATRIURETIC PEPTIDE 168.5 pg/mL (0-100)
[2020-07-15] MEDS: Ciprofloxacin 400 MG/200 ML BAG 200 MG IV (12:32)
[2020-07-15 14:17] VITALS: BP 122/59; PULSE 77; RESP 16; O2SAT 96
== END 2020-07-15 14:18 | disposition home or self-care (01) ==
PROVIDERS: Emergency Provider Emergency Medicine; PCP Family Medicine
DX: N39.0 Urinary tract infection, site not specified (principal); R05 Cough; J34.89 Other specified disorders of nose and nasal sinuses; R06.02 Shortness of breath; Z11.59 Encounter for screening for other viral diseases
CPT/HCPCS: 71045; 80048; 81002; 83880; 84484; 85025; 87086; 87088; 87186; 87635; 93005; 96360; 96361; 99284; A4216; J0744; U0003

== ENCOUNTER → 2020-08-04 09:23 | Outpatient (CLI) | payer MEDICARE, SELFPAY ==
[2020-07-15 10:09] VITALS: BMI 33.3
[2020-08-04 09:35] LABS: Mucous, Urine 0 SEEN /hpf (<or=2+); Red Blood Cells-Urine 0 SEEN /hpf (0-5)
[2020-08-04 13:42] LABS: ALB/GLOB Ratio 0.8 RATIO (0.9-2.4); AST(SGOT) 15 U/L (15-37); Alanine Aminotransfer ALT/SGPT 17 U/L (13-56); Albumin, Serum 3.3 g/dL (3.2-5.0); Alkaline Phosphatase 60 U/L (45-117); Anion Gap 5 (5-15); BUN 31 mg/dL (7-18); BUN/Creat Ratio 25.6 RATIO (10-20); Calcium,Total 9.6 mg/dL (8.5-10.1); Chloride 108 mmol/L (98-107); Cholesterol 155 mg/dL (200); Creatinine, Serum 1.21 mg/dL (0.55-1.02); EST Glomerular Filtration Rate 46 mL/min (>60); Est Glom Filt Rate - Afr Amer 55 mL/min (>60); Globulin 3.9 g/dL (2.2-4.2); Glucose 143 mg/dL (74-106); High Density Lipoprotein 44 mg/dL; Protein, Total 7.2 g/dL (6.4-8.2); Sodium Level 142 mmol/L (136-145); Triglycerides 214 mg/dL; Very Low Density Lipoprotein 43 mg/dL (5-40)
[2020-08-04 13:44] LABS: Color, Urine Yellow (Yellow); Glucose, Dipstick Normal (Normal); Ketone-Dipstick Negative (Negative); Leukocyte Esterase-Dipstick 25 /ul (Negative); Nitrite-Dipstick Negative (Negative); Occult Blood-Urine Negative /ul (Negative); Protein-Dipstick 30 mg/dl (Negative); Specific Gravity, Urine 1.015 (1.002-1.030); Urine Bilirubin Dipstick Negative (Negative); Urine Clarity Clear (Clear); Urine Urobilinogen Normal (Normal)
[2020-08-04 13:46] LABS: Hemoglobin A1c 6.8 % (3.8-5.6)
[2020-08-04 14:01] LABS: Bacteria 1+ /hpf (None Seen); Squamous Epithelial Cells - UA 0-5 SEEN /hpf (5-10); White Blood Cells 0-5 SEEN /hpf (0-5)
[2020-08-04 14:28] LABS: Microalbumin:Creatinine Ratio 166.7 mg/g CRE (<30 mg/g CRE); Protein, Urine (Random) 25.6 mg/dL (<11.9); Protein:Creat Ratio 272 mg/g CRE (0-200)
== END ==
PROVIDERS: PCP Family Medicine; Referring Provider Family Medicine; Visit Provider Family Medicine
DX: E11.22 Type 2 diabetes mellitus with diabetic chronic kidney disease (principal); N18.30 Chronic kidney disease, stage 3 unspecified; E78.5 Hyperlipidemia, unspecified; E55.9 Vitamin D deficiency, unspecified
CPT/HCPCS: 36415; 80053; 80061; 81001; 82043; 82570; 83036; 84156

== ENCOUNTER → 2020-08-09 08:20 | Outpatient (CLI) | payer MEDICARE, SELFPAY ==
[2020-07-15 10:09] VITALS: BMI 33.3
[2020-08-09 10:23] LABS: Vitamin D,25 Hydroxy 46.3 ng/mL
== END ==
PROVIDERS: PCP Family Medicine; Referring Provider Family Medicine; Visit Provider Family Medicine
DX: E55.9 Vitamin D deficiency, unspecified (principal)
CPT/HCPCS: 82306

== ENCOUNTER → 2020-12-01 08:31 | Outpatient (CLI) | payer MEDICARE, SELFPAY ==
[2020-12-01 10:21] LABS: Hemoglobin A1c 6.6 % (3.8-5.6)
[2020-12-01 10:36] LABS: Protein, Urine (Random) 31.9 mg/dL (<11.9); Protein:Creat Ratio 372 mg/g CRE (0-200)
[2020-12-01 10:37] LABS: PTHIN 37.5 pg/mL (18.4-80.1)
[2020-12-01 10:49] LABS: AST(SGOT) 19 U/L (15-37); Alanine Aminotransfer ALT/SGPT 27 U/L (13-56); Albumin, Serum 3.4 g/dL (3.2-5.0); Alkaline Phosphatase 55 U/L (45-117); Anion Gap 6 (5-15); BUN 27 mg/dL (7-18); BUN/Creat Ratio 21.4 RATIO (10-20); Calcium,Total 8.8 mg/dL (8.5-10.1); Chloride 106 mmol/L (98-107); Cholesterol 148 mg/dL (200); Creatinine, Serum 1.26 mg/dL (0.55-1.02); EST Glomerular Filtration Rate 44 mL/min (>60); Est Glom Filt Rate - Afr Amer 53 mL/min (>60); Globulin 3.4 g/dL (2.2-4.2); Glucose 110 mg/dL (74-106); High Density Lipoprotein 46 mg/dL; Phosphorus 3.6 mg/dL (2.5-4.9); Potassium 3.7 mmol/L (3.5-5.1); Protein, Total 6.8 g/dL (6.4-8.2); Sodium Level 142 mmol/L (136-145); Triglycerides 150 mg/dL; Very Low Density Lipoprotein 30 mg/dL (5-40)
== END ==
PROVIDERS: PCP Family Medicine; Referring Provider Family Medicine; Visit Provider Family Medicine
DX: E11.22 Type 2 diabetes mellitus with diabetic chronic kidney disease (principal); N18.30 Chronic kidney disease, stage 3 unspecified; E55.9 Vitamin D deficiency, unspecified; E78.5 Hyperlipidemia, unspecified
CPT/HCPCS: 36415; 80053; 80061; 82043; 82306; 82570; 83036; 83970; 84100; 84156

== ENCOUNTER → 2021-04-26 15:59 | Outpatient (CLI) | payer MEDICARE, SELFPAY | PROVIDERS: PCP Family Medicine; Referring Provider Family Medicine; Visit Provider Family Medicine | DX: Z00.00 Encounter for general adult medical examination without abnormal findings (principal) ==

== ENCOUNTER → 2021-08-07 08:36 | Outpatient (CLI) | payer MEDICARE, SELFPAY ==
[2021-08-07 08:47] LABS: Bacteria 0 SEEN /hpf (None Seen); Mucous, Urine 0 SEEN /hpf (<or=2+)
[2021-08-07 09:53] LABS: Absolute Lymphocyte Count 1.33 X10^3/uL (0.83-4.51); Absolute Neutrophil Count 6.4 X10^3/uL (2.0-7.7); Basophil# 0.04 X10^3/uL; Basophil% 0.4 % (0-1); Eosinophil# 0.14 X10^3/uL; Eosinophils% 1.6 % (0-5); Hematocrit 40.5 % (37-47); Hemoglobin 12.6 g/dL (12.0-15.0); Lymphocyte # 1.33 X10^3/ul (0.83-4.51); Lymphocyte % 14.9 % (19-41); Mean Corp Hgb Conc 31.1 g/dL (32-36); Mean Corpuscular Hgb 27.9 pg (27.0-32.0); Mean Corpuscular Volume 89.6 fL (81-99); Mean Platelet Vol. 10.9 fl (6.2-12.0); Monocyte# 0.93 X10^3/uL; Monocyte% 10.4 % (0-10); NRBC Flagged by Analyzer 0 % (0-5); Neutrophil # 6.43 X10^3/uL (2.7-7.7); Neutrophil % 72.1 % (47-70); Platelet Count 267 K/mm3 (150-450); RBC Distribution Width CV 13.3 % (11.6-14.6); RBC Distribution Width SD 43.8 fl (35.1-43.9); Red Blood Count 4.52 M/mm3 (4.2-5.4); White Blood Count 8.9 K/mm3 (4.4-11.0)
[2021-08-07 09:56] LABS: Color, Urine Yellow (Yellow); Glucose, Dipstick Normal (Normal); Ketone-Dipstick Negative (Negative); Leukocyte Esterase-Dipstick 500 /ul (Negative); Nitrite-Dipstick Negative (Negative); Occult Blood-Urine 10 /ul (Negative); Protein-Dipstick 30 mg/dl (Negative); Urine Bilirubin Dipstick Negative (Negative); Urine Clarity Clear (Clear); Urine Urobilinogen Normal (Normal)
[2021-08-07 10:06] LABS: Red Blood Cells-Urine 0-5 SEEN /hpf (0-5); Squamous Epithelial Cells - UA 0-5 SEEN /hpf (5-10); White Blood Cells 5-10 SEEN /hpf (0-5)
[2021-08-07 10:10] LABS: Vitamin D,25 Hydroxy 55.8 ng/mL
[2021-08-07 10:14] LABS: Hemoglobin A1c 6.3 % (3.8-5.6)
--- NOTE | 2021-08-07 10:17 | RAD_ITS ---
STUDY: X-RAY - LUMBAR SPINE REASON FOR EXAM: Female, 81 years old. Radiating low back pain TECHNIQUE: 3 view(s) of the lumbar spine were obtained. COMPARISON: None FINDINGS: Normal lumbar lordosis. There is no substantial scoliosis. There is a normal alignment of the vertebrae from L1 to L4. There is a grade 1 spondylolisthesis at L4-5. There is multilevel endplate spondylosis of the lumbar vertebrae. There is multi-level degenerative disc disease with multi-level disc space narrowing. There is no demonstrated fracture. There is atherosclerotic calcification of the abdominal aorta without a demonstrated aneurysm. RAD/L/S Spine Min 4 Views IMPRESSION: Degenerative changes of the spine, as detailed above with a grade 1 spondylolisthesis at L4-5 Electronically Signed: Ari Clark MD at 11:42 EDT , Service support ,
--- NOTE | 2021-08-07 10:17 | RAD_ITS ---
STUDY: X-RAY - PELVIS AND BILATERAL HIPS REASON FOR EXAM: Female, 81 years old. HIP PAIN TECHNIQUE: AP view of the pelvis.? 2 views of the right hip, and 2 views of the left hip were obtained. COMPARISON: None. FINDINGS: There is a non-specific bowel gas pattern. Normal visualized soft tissue structures. There is diffuse demineralization of the osseous structures. There is narrowing with cortical sclerosis and osteophyte formation of the sacroiliac joint consistent with degenerative osteoarthritic changes. Normal bilateral superior and inferior pubic rami. Normal pubic symphysis. Normal bilateral ischial tuberosities. Normal visualized right femoral head. Normal right acetabulum. There is moderate articular joint space narrowing of the right hip. Normal visualized left femoral head. Normal left acetabulum. There is moderate articular joint space narrowing of the left hip. RAD/Hips B/L min 2 views w/ Pelvis IMPRESSION: Age consistent hip and SI joint arthrosis, no demonstrated fracture or suspicious osseous lesion Electronically Signed: Ari Clark MD at 11:42 EDT , Service support ,
[2021-08-07 10:21] LABS: ALB/GLOB Ratio 0.8 RATIO (0.9-2.4); Albumin, Serum 3.1 g/dL (3.2-5.0); BUN 32 mg/dL (7-18); BUN/Creat Ratio 26.4 RATIO (10-20); Calcium,Total 9.4 mg/dL (8.5-10.1); Creatinine, Serum 1.21 mg/dL (0.55-1.02); EST Glomerular Filtration Rate 46 mL/min (>60); Est Glom Filt Rate - Afr Amer 55 mL/min (>60); Globulin 3.9 g/dL (2.2-4.2); Glucose 144 mg/dL (74-106); Phosphorus 3.3 mg/dL (2.5-4.9)
[2021-08-07 10:22] LABS: AST(SGOT) 20 U/L (15-37); Alanine Aminotransfer ALT/SGPT 29 U/L (13-56); Alkaline Phosphatase 55 U/L (45-117); Anion Gap 6 (5-15); Chloride 104 mmol/L (98-107); Cholesterol 146 mg/dL (200); High Density Lipoprotein 43 mg/dL; Potassium 4.5 mmol/L (3.5-5.1); Sodium Level 139 mmol/L (136-145); Triglycerides 138 mg/dL; Very Low Density Lipoprotein 28 mg/dL (5-40)
[2021-08-07 10:31] LABS: Microalbumin:Creatinine Ratio 411.1 mg/g CRE (<30 mg/g CRE); Protein, Urine (Random) 43.3 mg/dL (<11.9); Protein:Creat Ratio 706 mg/g CRE (0-200)
== END ==
PROVIDERS: PCP Family Medicine; Referring Provider Family Medicine; Visit Provider Family Medicine
DX: M47.819 Spondylosis without myelopathy or radiculopathy, site unspecified (principal); E11.22 Type 2 diabetes mellitus with diabetic chronic kidney disease; M16.0 Bilateral primary osteoarthritis of hip; N18.30 Chronic kidney disease, stage 3 unspecified
CPT/HCPCS: 36415; 72110; 73521; 80053; 80061; 81001; 82043; 82306; 82570; 83036; 84100; 84156; 84443; 85025

== ENCOUNTER 2021-11-02 09:36 | Outpatient (CLI) | payer MEDICARE, SELFPAY ==
[2021-11-02 12:23] LABS: Absolute Lymphocyte Count 1.36 X10^3/uL (0.83-4.51); Basophil# 0.05 X10^3/uL; Basophil% 0.7 % (0-1); Eosinophil# 0.15 X10^3/uL; Eosinophils% 2.1 % (0-5); Hematocrit 39.2 % (37-47); Hemoglobin 11.8 g/dL (12.0-15.0); Lymphocyte # 1.36 X10^3/ul (0.83-4.51); Lymphocyte % 18.7 % (19-41); Mean Corp Hgb Conc 30.1 g/dL (32-36); Mean Corpuscular Hgb 26.2 pg (27.0-32.0); Mean Corpuscular Volume 86.9 fL (81-99); Monocyte# 0.73 X10^3/uL; NRBC Flagged by Analyzer 0 % (0-5); Neutrophil # 4.95 X10^3/uL (2.7-7.7); Neutrophil % 68.1 % (47-70); Platelet Count 297 K/mm3 (150-450); RBC Distribution Width CV 13.6 % (11.6-14.6); Red Blood Count 4.51 M/mm3 (4.2-5.4); White Blood Count 7.3 K/mm3 (4.4-11.0)
[2021-11-02 12:27] LABS: Color, Urine Yellow (Yellow); Glucose, Dipstick Normal (Normal); Ketone-Dipstick Negative (Negative); Leukocyte Esterase-Dipstick 25 /ul (Negative); Nitrite-Dipstick Negative (Negative); Occult Blood-Urine Negative /ul (Negative); Protein-Dipstick 30 mg/dl (Negative); Specific Gravity, Urine 1.015 (1.002-1.030); Urine Bilirubin Dipstick Negative (Negative); Urine Clarity Sl. Cloudy (Clear); Urine Urobilinogen Normal (Normal)
[2021-11-02 12:39] LABS: ALB/GLOB Ratio 0.9 RATIO (0.9-2.4); AST(SGOT) 17 U/L (15-37); Alanine Aminotransfer ALT/SGPT 24 U/L (13-56); Albumin, Serum 3.4 g/dL (3.2-5.0); Alkaline Phosphatase 52 U/L (45-117); Anion Gap 5 (5-15); BUN 33 mg/dL (7-18); Calcium,Total 9.6 mg/dL (8.5-10.1); Chloride 106 mmol/L (98-107); Cholesterol 155 mg/dL (200); EST Glomerular Filtration Rate 51 mL/min (>60); Est Glom Filt Rate - Afr Amer 61 mL/min (>60); Globulin 3.8 g/dL (2.2-4.2); Glucose 123 mg/dL (74-106); High Density Lipoprotein 50 mg/dL; Phosphorus 3.7 mg/dL (2.5-4.9); Potassium 3.8 mmol/L (3.5-5.1); Protein, Total 7.2 g/dL (6.4-8.2); Sodium Level 139 mmol/L (136-145); Triglycerides 116 mg/dL; Very Low Density Lipoprotein 23 mg/dL (5-40)
[2021-11-02 12:40] LABS: Hemoglobin A1c 6.6 % (3.8-5.6)
[2021-11-02 12:42] LABS: Vitamin D,25 Hydroxy 59.6 ng/mL
[2021-11-02 12:56] LABS: Microalbumin:Creatinine Ratio 251.4 mg/g CRE (<30 mg/g CRE); Protein, Urine (Random) 18.5 mg/dL (<11.9); Protein:Creat Ratio 345 mg/g CRE (0-200)
[2021-11-02 13:31] LABS: Bacteria 0 SEEN /hpf (None Seen); Mucous, Urine 0 SEEN /hpf (<or=2+); Red Blood Cells-Urine 0 SEEN /hpf (0-5)
[2021-11-02 18:43] LABS: Squamous Epithelial Cells - UA 0-5 SEEN /hpf (5-10); White Blood Cells 0-5 SEEN /hpf (0-5)
[2021-11-05 10:48] LABS: Ferritin 12 ng/mL (8-252); Iron 43 ug/dL (50-170); Iron Binding Capacity,Total 405 ug/dL (250-450); PERCENT IRON SATURATION 10.6 % (15.0-55.0)
[2021-11-05 11:22] LABS: Vitamin B12 1275 pg/mL (211-911)
== END 2021-11-02 23:59 | disposition home or self-care (01) ==
LOC: MTLAB 09:37
PROVIDERS: PCP Family Medicine; Referring Provider Family Medicine; Visit Provider Family Medicine
DX: D64.9 Anemia, unspecified (principal); E11.59 Type 2 diabetes mellitus with other circulatory complications; E11.22 Type 2 diabetes mellitus with diabetic chronic kidney disease; N18.30 Chronic kidney disease, stage 3 unspecified; E55.9 Vitamin D deficiency, unspecified; E78.5 Hyperlipidemia, unspecified; I12.9 Hypertensive chronic kidney disease with stage 1 through stage 4 chronic kidney disease, or unspecified chronic kidney disease
CPT/HCPCS: 36415; 80053; 80061; 81001; 81002; 82043; 82306; 82570; 82607; 82728; 83036; 83540; 83550; 84100; 84156; 85025

== ENCOUNTER 2021-11-16 11:08 | Outpatient (CLI) | payer MEDICARE, SELFPAY ==
--- NOTE | 2021-11-16 11:09 | RAD_ITS ---
STUDY: X-RAY - LEFT ANKLE REASON FOR EXAM: Female, 81 years old. Pain. TECHNIQUE: 3 view(s) of the ankle. COMPARISON: None. FINDINGS: Osteopenia. Mild arthrosis of the tibiotalar and subtalar joints. Superior and inferior calcaneal spurs. Marked ossification of the distal Achilles tendon. RAD/Ankle min 3 Views IMPRESSION: Osteopenia with osteoarthritic changes. Marked ossification of the distal Achilles tendon. No acute abnormality. Electronically Signed: Norm Scott MD at 12:41 EST ,
== END 2021-11-16 23:59 | disposition home or self-care (01) ==
LOC: MTRAD 11:09
PROVIDERS: PCP Family Medicine; Referring Provider Family Medicine; Visit Provider Family Medicine
DX: M25.572 Pain in left ankle and joints of left foot (principal)
CPT/HCPCS: 73610

== ENCOUNTER → 2022-01-25 | Outpatient (CLI) | payer MEDICARE, SELFPAY ==
[2022-01-25 12:40] LABS: Absolute Lymphocyte Count 1.45 X10^3/uL (0.83-4.51); Absolute Neutrophil Count 7.9 X10^3/uL (2.0-7.7); Basophil# 0.06 X10^3/uL; Basophil% 0.6 % (0-1); Eosinophil# 0.15 X10^3/uL; Eosinophils% 1.4 % (0-5); Hemoglobin 11.8 g/dL (12.0-15.0); Lymphocyte # 1.45 X10^3/ul (0.83-4.51); Lymphocyte % 13.8 % (19-41); Mean Corp Hgb Conc 31.1 g/dL (32-36); Mean Corpuscular Hgb 26.1 pg (27.0-32.0); Mean Corpuscular Volume 84.1 fL (81-99); Mean Platelet Vol. 10.8 fl (6.2-12.0); Monocyte# 0.91 X10^3/uL; Monocyte% 8.7 % (0-10); NRBC Flagged by Analyzer 0 % (0-5); Neutrophil # 7.88 X10^3/uL (2.7-7.7); Platelet Count 288 K/mm3 (150-450); RBC Distribution Width CV 15.3 % (11.6-14.6); RBC Distribution Width SD 46.6 fl (35.1-43.9); Red Blood Count 4.52 M/mm3 (4.2-5.4); White Blood Count 10.5 K/mm3 (4.4-11.0)
[2022-01-25 12:50] LABS: Microalbumin:Creatinine Ratio 531.2 mg/g CRE (<30 mg/g CRE)
[2022-01-25 12:54] LABS: Hemoglobin A1c 6.5 % (3.8-5.6)
[2022-01-25 13:02] LABS: Albumin, Serum 3.6 g/dL (3.2-5.0); BUN 32 mg/dL (7-18); BUN/Creat Ratio 28.3 RATIO (10-20); Creatinine, Serum 1.13 mg/dL (0.55-1.02); EST Glomerular Filtration Rate 49 mL/min (>60); Est Glom Filt Rate - Afr Amer 60 mL/min (>60); Globulin 3.6 g/dL (2.2-4.2); Glucose 132 mg/dL (74-106); Protein, Total 7.2 g/dL (6.4-8.2)
[2022-01-25 13:03] LABS: AST(SGOT) 20 U/L (15-37); Alanine Aminotransfer ALT/SGPT 27 U/L (13-56); Alkaline Phosphatase 46 U/L (45-117); Anion Gap 6 (5-15); Calcium,Total 9.5 mg/dL (8.5-10.1); Chloride 106 mmol/L (98-107); Cholesterol 165 mg/dL (200); Ferritin 11 ng/mL (8-252); High Density Lipoprotein 50 mg/dL; Iron 46 ug/dL (50-170); Iron Binding Capacity,Total 415 ug/dL (250-450); Potassium 4.5 mmol/L (3.5-5.1); Sodium Level 140 mmol/L (136-145); Triglycerides 127 mg/dL; Very Low Density Lipoprotein 25 mg/dL (5-40)
[2022-01-25 13:34] LABS: Vitamin D,25 Hydroxy 64.7 ng/mL
== END | disposition home or self-care (01) ==
LOC: MFPLAB 10:40
PROVIDERS: PCP Family Medicine; Referring Provider Family Medicine; Visit Provider Family Medicine
DX: E11.69 Type 2 diabetes mellitus with other specified complication (principal); D64.9 Anemia, unspecified; E55.9 Vitamin D deficiency, unspecified
CPT/HCPCS: 36415; 80053; 80061; 82043; 82306; 82570; 82728; 83036; 83540; 83550; 85025

== ENCOUNTER → 2022-06-05 | Outpatient (CLI) | payer MEDICARE, SELFPAY ==
[2022-06-05 09:33] LABS: Bacteria 0 SEEN /hpf (None Seen); Mucous, Urine 0 SEEN /hpf (<or=2+); Red Blood Cells-Urine 0 SEEN /hpf (0-5)
[2022-06-05 12:11] LABS: Color, Urine Yellow (Yellow); Glucose, Dipstick Normal (Normal); Ketone-Dipstick Negative (Negative); Leukocyte Esterase-Dipstick 100 /ul (Negative); Nitrite-Dipstick Negative (Negative); Occult Blood-Urine Negative /ul (Negative); Protein-Dipstick 15 mg/dl (Negative); Urine Bilirubin Dipstick Negative (Negative); Urine Clarity Sl. Cloudy (Clear); Urine Urobilinogen Normal (Normal)
[2022-06-05 12:12] LABS: Absolute Lymphocyte Count 1.56 X10^3/uL (0.83-4.51); Absolute Neutrophil Count 4.9 X10^3/uL (2.0-7.7); Basophil# 0.06 X10^3/uL; Basophil% 0.8 % (0-1); Eosinophil# 0.22 X10^3/uL; Eosinophils% 2.9 % (0-5); Hematocrit 43.2 % (37-47); Hemoglobin 13.2 g/dL (12.0-15.0); Lymphocyte # 1.56 X10^3/ul (0.83-4.51); Lymphocyte % 20.6 % (19-41); Mean Corp Hgb Conc 30.6 g/dL (32-36); Mean Corpuscular Hgb 26.6 pg (27.0-32.0); Mean Corpuscular Volume 86.9 fL (81-99); Mean Platelet Vol. 11.5 fl (6.2-12.0); Monocyte# 0.86 X10^3/uL; Monocyte% 11.3 % (0-10); NRBC Flagged by Analyzer 0 % (0-5); Neutrophil # 4.85 X10^3/uL (2.7-7.7); Neutrophil % 63.9 % (47-70); Platelet Count 275 K/mm3 (150-450); RBC Distribution Width CV 14.6 % (11.6-14.6); RBC Distribution Width SD 46.9 fl (35.1-43.9); Red Blood Count 4.97 M/mm3 (4.2-5.4); White Blood Count 7.6 K/mm3 (4.4-11.0)
[2022-06-05 12:20] LABS: Squamous Epithelial Cells - UA 0-5 SEEN /hpf (5-10); White Blood Cells 10-25 SEEN /hpf (0-5)
[2022-06-05 12:33] LABS: PTHIN 37.4 pg/mL (18.4-80.1)
[2022-06-05 12:39] LABS: Vitamin D,25 Hydroxy 57.3 ng/mL
[2022-06-05 12:44] LABS: ALB/GLOB Ratio 0.9 RATIO (0.9-2.4); AST(SGOT) 19 U/L (15-37); Alanine Aminotransfer ALT/SGPT 20 U/L (13-56); Albumin, Serum 3.4 g/dL (3.2-5.0); Alkaline Phosphatase 57 U/L (45-117); Anion Gap 7 (5-15); BUN 32 mg/dL (7-18); BUN/Creat Ratio 27.1 RATIO (10-20); Calcium,Total 9.2 mg/dL (8.5-10.1); Chloride 104 mmol/L (98-107); Cholesterol 153 mg/dL (200); Creatinine, Serum 1.18 mg/dL (0.55-1.02); EST Glomerular Filtration Rate 47 mL/min (>60); Est Glom Filt Rate - Afr Amer 57 mL/min (>60); Ferritin 16 ng/mL (8-252); Globulin 3.8 g/dL (2.2-4.2); Glucose 141 mg/dL (74-106); High Density Lipoprotein 45 mg/dL; Iron 67 ug/dL (50-170); Iron Binding Capacity,Total 357 ug/dL (250-450); Phosphorus 3.7 mg/dL (2.5-4.9); Potassium 4.4 mmol/L (3.5-5.1); Protein, Total 7.2 g/dL (6.4-8.2); Sodium Level 139 mmol/L (136-145); Triglycerides 105 mg/dL; Very Low Density Lipoprotein 21 mg/dL (5-40)
[2022-06-05 12:45] LABS: Hemoglobin A1c 6.6 % (3.8-5.6)
[2022-06-05 12:58] LABS: Microalbumin,Random Urine 59.4 mg/L (NO RANGE EST.); Microalbumin:Creatinine Ratio 74.6 mg/g CRE (<30 mg/g CRE); Protein, Urine (Random) 17.9 mg/dL (<11.9); Protein:Creat Ratio 225 mg/g CRE (0-200)
== END | disposition home or self-care (01) ==
LOC: MFPLAB 09:31
PROVIDERS: PCP Family Medicine; Visit Provider Family Medicine
DX: E11.22 Type 2 diabetes mellitus with diabetic chronic kidney disease (principal); N18.30 Chronic kidney disease, stage 3 unspecified; D50.9 Iron deficiency anemia, unspecified; E55.9 Vitamin D deficiency, unspecified
CPT/HCPCS: 36415; 80053; 80061; 81001; 82043; 82306; 82570; 82728; 83036; 83540; 83550; 83970; 84100; 84156; 85025

== ENCOUNTER → 2022-06-17 | Outpatient (CLI) | payer MEDICARE, SELFPAY ==
--- NOTE | 2022-06-17 10:25 | RAD_ITS ---
PROCEDURE: Fluoroscopic guided Hip Injection DATE: 06/17/2022. INDICATION: Female, 82 years old. Chronic right hip pain. PHYSICIAN: Kirill Rocha M.D. MEDICATIONS: 40 mg of KENALOG and 4 cc of 1% LIDOCAINE. 2% lidocaine administered subcutaneously for local anesthesia. ACCESS SITE: Right hip. NEEDLE: 22-gauge spinal needle. FLUOROSCOPY TIME (if supplied): (0:24) minutes/seconds. One image was obtained. FINDINGS: The risks, benefits, and alternatives to the procedure were explained to the patient. The specific risks of bleeding, infection, and neurovascular injury were detailed and accepted. Witnessed informed consent was obtained. A 22-gauge spinal needle was positioned under radiographic fluoroscopic localization. Approximately 2 cc of as a view 300 instilled for localization purposes. Medication was then injected. The patient tolerated the procedure well without any immediate complications. RAD/Inj/Asp Mandeep Jt Should/Hip/Knee IMPRESSION: 1. Successful fluoroscopic guided hip injection. Electronically Signed: Kirill Rocha MD at 11:20 EDT ,
[2022-06-17] MEDS: Lidocaine 2% (5ml sdv) 5 ML VIAL.MPF INFILT (10:50)
[2022-06-17] MEDS: Triamcinolone Acetonide 40 MG/ML Vial INTRAARTIC (11:00)
[2022-06-17] MEDS: Lidocaine 1% (5 ml sdv) 5 ML Vial 4 ML OPERA.SITE (11:00)
== END | disposition home or self-care (01) ==
PROVIDERS: PCP Family Medicine; Referring Provider Family Medicine; Visit Provider Family Medicine
DX: M16.11 Unilateral primary osteoarthritis, right hip (principal)
CPT/HCPCS: 20610; 77002; Q9967

== ENCOUNTER 2022-07-12 17:23 | Emergency (ER) | payer MEDICARE, SELFPAY ==
[2022-07-12 17:24] VITALS: BP 180/73; BP 180/78; PULSE 73; RESP 16; TEMP 36.9; O2SAT 95; BMI 33.3
--- NOTE | 2022-07-12 18:58 | EDS_ITS ---
HPI <TAIWO Duffy - Last Filed: 07/12/22 20:00> History of Present Illness Chief Complaint: Head Injury Narrative Narrative: 82-year-old female with history of arthritis, diabetes presents the emergency department after mechanical fall. Patient was walking, she was trying to find the hand railing to rest her self when she missed it falling forward striking the back part of her head as well as her left elbow. She was able to get up on her own however was instructed not to. Patient is currently not on any anticoagulation medicine. Patient remembers the entire event. Denies any LOC. Patient's biggest complaint is a slight headache as well as some pain to the left elbow. Patient is acting appropriate at this time [facility] <TAIWO Duffy - Last Filed: 07/12/22 20:00> [facility] Medical History (Updated 07/12/22 @ 20:00 by TAIWO Duffy) Arthritis Diabetes Hypertension Home Medications amlodipine 5 mg tablet 5 mg PO DAILY 07/15/20 [History Last Taken Unknown] atorvastatin 20 mg tablet 20 mg PO QHS 07/15/20 [History Last Taken Unknown] benazepril 10 mg tablet 10 mg PO DAILY 07/15/20 [History Last Taken Unknown] ciprofloxacin HCl 500 mg tablet 500 mg PO BID #14 tabs 07/15/20 [Rx Last Taken Unknown] hydrochlorothiazide 25 mg tablet 25 mg PO DAILY 07/15/20 [History Last Taken U nknown] hydrocodone-acetaminophen 5-325mg 5mg-325mg 1 ea PO TID PRN Pain Score 1-10 07/15/20 [History Last Taken Unknown] linagliptin 5 mg tablet 5 mg PO DAILY 07/15/20 [History Last Taken Unknown] magnesium amino acid chelate 100 mg tablet 200 mg PO DAILY 07/15/20 [History Last Taken Unknown] omeprazole 20 mg capsule,delayed release 20 mg PO DAILY 07/15/20 [History Last Taken Unknown] selenium 200 mcg tablet 200 mcg PO DAILY 07/15/20 [History Last Taken Unknown] Allergy/AdvReac Type Severity Reaction Status Date / Time Penicillins Allergy Swelling Verified 09/12/21 15:01 Sulfa (Sulfonamide Allergy Unknown Verified 09/12/21 15:01 Antibiotics) Social History (System 09/12/21 @ 15:01 by Sydnie Prater) Smoking Status: Never smoker ROS <TAIWO Duffy - Last Filed: 07/12/22 20:00> ROS ED ROS Narrative Constitutional: Negative for fever, chills, weight loss, weakness Eyes: Negative for vision loss, vision change, double vision ENT: Negative for any sore throat, ear pain, congestion Cardiovascular: Negative for any chest pain, tightness, palpitations Respiratory: Negative for any cough, sputum production, hemoptysis, dyspnea, dyspnea on exertion, orthopnea Gastrointestinal: Negative for any abdominal pain, nausea, vomiting, diarrhea, constipation, blood in stool, blood in vomit : Negative for any urinary frequency, dysuria, retention, blood in urine Muscle skeletal: Negative for any muscle joint pain, stiffness, myalgias, arthralgias, neck pain, back pain. Positive left elbow pain Neurological: Negative for any syncope, numbness or tingling, dizziness. Positive for headache Skin: Negative for any rashes, lumps, itching, abrasions, lacerations Psychiatric: Negative for any depression, anxiety, stress, suicidal ideation, homicidal ideation Hematologic: Negative for any easy bruising, excessive bruising, easy bleeding Allergies: Negative for any eczema, hives, rash EXAM <TAIWO Duffy - Last Filed: 07/12/22 20:00> Physical Exam Narrative Exam Narrative: Vital signs reviewed. HEET: Head normocephalic atraumatic, TMs clear bilaterally. Posterior pharynx is clear, moist mucous membranes. Nares clear bilaterally. Pupils are equal round reactive to light. Negative for any hemotympanum, septal hematoma. Patient does have a slight hematoma to the back left occiput. Neck: Supple with no lymphadenopathy or tenderness. No signs of meningismus, negative jolt sign. Cardiac: Regular rate and rhythm no murmurs gallops or rubs, equal peripheral pulses bilaterally. Respiratory: Lungs clear to auscultation bilaterally. No chest tenderness. Abdomen: Soft, nontender, nondistended. No abdominal bruit or pulsatile masses. No hepatosplenomegaly Extremities: No peripheral edema, no signs of gross trauma or deformity. Active full range of motion of all extremities. Patient does have some ecchymosis to the left elbow, specifically on the olecranon fossa. Patient is able to flex and extend have this does cause discomfort. Neuro: Cranial nerves II through XII intact, no focal neurological deficits. Skin: Clean dry and intact with no rash, purpura, petechiae, vesicles or pustules. Backs/flank: No CVA tenderness, no midline spinal tenderness, no deformity. Psych: Normal mood and affect. No SI, HI or acute psychosis. Const Vital Signs: 07/12/22 17:24 07/12/22 17:24 07/12/22 18:29 Temperature 98.5 F 98.5 F Temperature Source Temporal Temporal Pulse Rate 73 73 Respiratory Rate 16 16 Respiratory Effort Normal Blood Pressure 180/78 H 180/73 H Blood Pressure Mean 112 108 Pulse Ox 95 95 Oxygen Delivery Method Room Air Room Air Positive well nourished and well developed General Appearance ED: well developed <Dr. Crow Minor MD - Last Filed: 07/12/22 20:23> Physical Exam Const Vital Signs: 07/12/22 17:24 07/12/22 17:24 07/12/22 18:29 Temperature 98.5 F 98.5 F Temperature Source Temporal Temporal Pulse Rate 73 73 Respiratory Rate 16 16 Respiratory Effort Normal Blood Pressure 180/78 H 180/73 H Blood Pressure Mean 112 108 Pulse Ox 95 95 Oxygen Delivery Method Room Air Room Air MDM <TAIWO Duffy - Last Filed: 07/12/22 20:00> MDM Radiography Diagnostic Testing: Clinical Impression(s) from Imaging Studies Elbow X-Ray 07/12/22 19:20 IMPRESSION: No fracture or malalignment. Chronic enthesopathic changes medial lateral epicondyles versus less likely calcific tendinopathy. Electronically Signed: Rajinder Enciso DO at 20:14 EDT , Treatment and Re-Evaluation Narrative: Patient appears well, patient appears nontoxic, vital signs are stable. Patient presents to the emergency department with mechanical fall today injuring her head, left elbow. Patient's neurological exam was unremarkable, patient did not lose conscious, was not days, she does not meet any criteria for CT of the brai n. Patient did receive x-rays of the left elbow ordered by ER physician is normal. Patient is ambulatory, feels well and is stable for discharge. Patient be diagnosed mechanical fall, closed head injury, left elbow contusion. She is instructed to ice, elevate. She will use Tylenol as needed. Struck to return for any worsening symptoms. <Dr. Crow Minor MD - Last Filed: 07/12/22 20:23> [facility] MDM Narrative Medical decision making narrative: I have personally performed a face to face assessment of the patient and have reviewed the ODILIA Note. I performed a substantive portion of the visit including all aspects of the following. My contreras findings include: History is [82-year-old fell. Was seen by her nurse practitioner. He discussed the case with me. When I went to evaluate the patient she had been discharged. So I never physically saw the patient.] Exam is [No exam by me due to the patient being inadvertently discharged prior to my evaluation.] Medical Decision Making [ ] Other additions or changes: [None] Radiography Diagnostic Testing: Clinical Impression(s) from Imaging Studies Elbow X-Ray 07/12/22 19:20 IMPRESSION: No fracture or malalignment. Chronic enthesopathic changes medial lateral epicondyles versus less likely calcific tendinopathy. Electronically Signed: Rajinder Enciso DO at 20:14 EDT , Discharge Plan Triage Chief Complaint: Head Injury ED Midlevel Provider: Rusty Salazar ED Provider: Crow Minor Dx/Rx/DC Orders Clinical Impression: Fall, Head injury, Elbow contusion Instructions: After a Concussion, ED Contusion, Elbow Prescriptions: No Action atorvastatin 20 MG tablet 20 mg PO QHS hydrocodone-acetaminophen 1 EACH tablet 1 ea PO TID PRN (Reason: Pain Score 1-10) amlodipine 5 MG tablet 5 mg PO DAILY selenium 200 MCG tablet 200 mcg PO DAILY omeprazole 20 MG capsule,delayed release(DR/EC) 20 mg PO DAILY hydrochlorothiazide 25 MG tablet 25 mg PO DAILY benazepril 10 MG tablet 10 mg PO DAILY magnesium amino acid chelate 100 MG tablet 200 mg PO DAILY linagliptin 5 mg tablet 5 mg PO DAILY Label Comments: TAKE 1 (ONE) TABLET ONCE A DAY ciprofloxacin HCl 500 MG tablet 500 mg PO BID Qty: 14 0RF Primary Care Provider: Satish Berry Referrals: Satish Berry MD [Primary Care Provider] - Activity Restrictions/Additional Instructions: Please ice your elbow. Take Tylenol for any pain. Disposition Disposition: Home, Self Care Discharge Date/Time: 07/12/22 20:16
--- NOTE | 2022-07-12 19:20 | RAD_ITS ---
INDICATION: fall EXAMINATION/TECHNIQUE: X-RAY - LEFT XR Elbow Min 3 Views COMPARISON: None. FINDINGS: SOFT TISSUES: No soft tissue swelling or gas. No radiopaque foreign body. BONES/JOINTS: There is no displacement of the anterior or posterior fat pads. No acute fracture or subluxation. Normal alignment. Preservation of the joint space. No sclerotic or destructive changes observed. Enthesopathic changes medial and lateral epicondyles versus less likely calcific tendinopathy. RAD/Elbow min 3 Views IMPRESSION: No fracture or malalignment. Chronic enthesopathic changes medial lateral epicondyles versus less likely calcific tendinopathy. Electronically Signed: Rajinder Enciso DO at 20:14 EDT ,
== END 2022-07-12 20:16 | disposition home or self-care (01) ==
PROVIDERS: Emergency Provider Emergency Medicine; PCP Family Medicine; Visit Provider Emergency Medicine
DX: S09.90XA Unspecified injury of head, initial encounter (principal); S50.02XA Contusion of left elbow, initial encounter; W19.XXXA Unspecified fall, initial encounter
CPT/HCPCS: 73080; 99282

== ENCOUNTER 2022-09-05 14:08 | Outpatient (CLI) | payer MEDICARE, SELFPAY ==
[2022-09-05 15:36] LABS: Absolute Lymphocyte Count 1.91 X10^3/uL (0.83-4.51); Absolute Neutrophil Count 6.4 X10^3/uL (2.0-7.7); Basophil# 0.07 X10^3/uL; Basophil% 0.7 % (0-1); Eosinophil# 0.23 X10^3/uL; Eosinophils% 2.4 % (0-5); Hematocrit 42.7 % (37-47); Hemoglobin 13.2 g/dL (12.0-15.0); Lymphocyte # 1.91 X10^3/ul (0.83-4.51); Lymphocyte % 19.8 % (19-41); Mean Corp Hgb Conc 30.9 g/dL (32-36); Mean Corpuscular Hgb 27.7 pg (27.0-32.0); Mean Corpuscular Volume 89.7 fL (81-99); Monocyte# 1.05 X10^3/uL; Monocyte% 10.9 % (0-10); NRBC Flagged by Analyzer 0 % (0-5); Neutrophil # 6.35 X10^3/uL (2.7-7.7); Neutrophil % 65.7 % (47-70); Platelet Count 316 K/mm3 (150-450); RBC Distribution Width CV 13.7 % (11.6-14.6); RBC Distribution Width SD 44.9 fl (35.1-43.9); Red Blood Count 4.76 M/mm3 (4.2-5.4); White Blood Count 9.7 K/mm3 (4.4-11.0)
[2022-09-05 16:01] LABS: Hemoglobin A1c 6.9 % (3.8-5.6)
[2022-09-05 16:22] LABS: ALB/GLOB Ratio 1.1 RATIO (0.9-2.4); AST(SGOT) 19 U/L (15-37); Alanine Aminotransfer ALT/SGPT 23 U/L (13-56); Albumin, Serum 3.4 g/dL (3.2-5.0); Alkaline Phosphatase 59 U/L (45-117); Anion Gap 11 (5-15); BUN 24 mg/dL (7-18); BUN/Creat Ratio 18.2 RATIO (10-20); Calcium,Total 9.1 mg/dL (8.5-10.1); Chloride 106 mmol/L (98-107); Cholesterol 151 mg/dL (200); Creatinine, Serum 1.32 mg/dL (0.55-1.02); EST Glomerular Filtration Rate 41 mL/min (>60); Est Glom Filt Rate - Afr Amer 50 mL/min (>60); Ferritin 16 ng/mL (8-252); Globulin 3.2 g/dL (2.2-4.2); Glucose 103 mg/dL (74-106); High Density Lipoprotein 50 mg/dL; Iron 62 ug/dL (50-170); Iron Binding Capacity,Total 368 ug/dL (250-450); Phosphorus 3.3 mg/dL (2.5-4.9); Protein, Total 6.6 g/dL (6.4-8.2); Sodium Level 142 mmol/L (136-145); Triglycerides 204 mg/dL; Very Low Density Lipoprotein 41 mg/dL (5-40)
[2022-09-05 16:44] LABS: Vitamin D,25 Hydroxy 60.1 ng/mL
== END 2022-09-05 23:59 | disposition home or self-care (01) ==
LOC: MFPLAB 14:09
PROVIDERS: PCP Family Medicine; Referring Provider Family Medicine; Visit Provider Family Medicine
DX: E11.22 Type 2 diabetes mellitus with diabetic chronic kidney disease (principal); D50.9 Iron deficiency anemia, unspecified; N18.9 Chronic kidney disease, unspecified
CPT/HCPCS: 36415; 80053; 80061; 82306; 82728; 83036; 83540; 83550; 84100; 85025

== ENCOUNTER 2022-11-20 12:48 | Outpatient (CLI) | payer MEDICARE, SELFPAY ==
--- NOTE | 2022-11-20 | LES_PTH ---
PATIENT: JACOB MCCALL LOC: [facility]AK #:[id number] AGE/SX: 82/F ROOM: RE11/20/[address]: Dr. Tomi Sterling DDS : 1940 BED: DIS: 11/20/2022 SPEC #: [id number] RECD: 11/20/22 12:12 STATUS: GISELLE DOROTEO #: [id number] SAMIR: 11/20/22 00:[address]: Tomi Sterling DEPT: SURGICAL PATHOLOGY RECD BY: Amber Fernandez ENTERED: 11/20/22 13:22 SP TYPE: Lesion OTHR DR: Dr. Satish Berry MD Tissues: Gum, NOS Procedures: Surgery Specimen Level IV HEADER OPERATION: Biopsy gingiva PRE-OP DIAGNOSIS: Lesion biopsy by another doctor TISSUE SUBMITTED: Gingiva tissue bit teeth MICROSCOPIC DIAGNOSIS Gingival tissue, biopsy: A piece of squamous mucosa with chronic inflammation, pseudoepitheliomatous hyperplasia and reactive changes. Negative for malignancy. IKE:isabella 11/21/2022 MICROSCOPIC DESCRIPTION Slides are reviewed. GROSS DESCRIPTION Received in fixative is one container labeled with the patient's name and designated gingival tissue. The specimen consists of a piece of negro mucosal tissue measuring 0.9 x 0.5 x 0.5 cm. The specimen is inked, bisected and submitted entirely in one cassette. / IKE:isabella 11/20/2022 TC:3 CPT: 93931
== END 2022-11-20 23:59 | disposition home or self-care (01) ==
LOC: LABSPEC 12:50
PROVIDERS: PCP Family Medicine; Visit Provider Dentist Oral and Maxillofacial Surgery
DX: D10.30 Benign neoplasm of unspecified part of mouth (principal)
CPT/HCPCS: 88305

== ENCOUNTER → 2022-12-04 | Outpatient (CLI) | payer MEDICARE, SELFPAY ==
[2022-12-04 09:09] LABS: Bacteria 0 SEEN /hpf (None Seen); Mucous, Urine 0 SEEN /hpf (<or=2+); Red Blood Cells-Urine 0 SEEN /hpf (0-5); White Blood Cells 0 SEEN /hpf (0-5)
[2022-12-04 10:10] LABS: Absolute Lymphocyte Count 1.27 X10^3/uL (0.83-4.51); Absolute Neutrophil Count 10.7 X10^3/uL (2.0-7.7); Basophil# 0.07 X10^3/uL; Basophil% 0.5 % (0-1); Eosinophil# 0.15 X10^3/uL; Eosinophils% 1.1 % (0-5); Hematocrit 43.6 % (37-47); Hemoglobin 13.5 g/dL (12.0-15.0); Lymphocyte # 1.27 X10^3/ul (0.83-4.51); Lymphocyte % 9.6 % (19-41); Mean Corpuscular Hgb 27.3 pg (27.0-32.0); Mean Corpuscular Volume 88.1 fL (81-99); Mean Platelet Vol. 10.8 fl (6.2-12.0); Monocyte# 1.03 X10^3/uL; Monocyte% 7.8 % (0-10); NRBC Flagged by Analyzer 0 % (0-5); Neutrophil % 80.5 % (47-70); Platelet Count 298 K/mm3 (150-450); RBC Distribution Width CV 13.8 % (11.6-14.6); RBC Distribution Width SD 44.3 fl (35.1-43.9); Red Blood Count 4.95 M/mm3 (4.2-5.4); White Blood Count 13.3 K/mm3 (4.4-11.0)
[2022-12-04 10:41] LABS: Color, Urine Yellow (Yellow); Glucose, Dipstick 1000 mg/dl (Normal); Ketone-Dipstick Negative (Negative); Leukocyte Esterase-Dipstick Negative /ul (Negative); Nitrite-Dipstick Negative (Negative); Occult Blood-Urine Negative /ul (Negative); Protein-Dipstick 30 mg/dl (Negative); Specific Gravity, Urine 1.015 (1.002-1.030); Urine Bilirubin Dipstick Negative (Negative); Urine Clarity Sl. Cloudy (Clear); Urine Urobilinogen Normal (Normal)
[2022-12-04 10:48] LABS: Vitamin D,25 Hydroxy 98.2 ng/mL
[2022-12-04 10:49] LABS: ALB/GLOB Ratio 0.9 RATIO (0.9-2.4); AST(SGOT) 13 U/L (15-37); Alanine Aminotransfer ALT/SGPT 19 U/L (13-56); Albumin, Serum 3.5 g/dL (3.2-5.0); Alkaline Phosphatase 65 U/L (45-117); Anion Gap 7 (5-15); BUN 31 mg/dL (7-18); BUN/Creat Ratio 29.5 RATIO (10-20); Calcium,Total 10.2 mg/dL (8.5-10.1); Chloride 103 mmol/L (98-107); Cholesterol 146 mg/dL (200); Creatinine, Serum 1.05 mg/dL (0.55-1.02); EST Glomerular Filtration Rate 53 mL/min (>60); Est Glom Filt Rate - Afr Amer 65 mL/min (>60); Globulin 3.8 g/dL (2.2-4.2); Glucose 138 mg/dL (74-106); High Density Lipoprotein 54 mg/dL; Phosphorus 3.7 mg/dL (2.5-4.9); Potassium 3.5 mmol/L (3.5-5.1); Protein, Total 7.3 g/dL (6.4-8.2); Sodium Level 141 mmol/L (136-145); Triglycerides 139 mg/dL; Very Low Density Lipoprotein 28 mg/dL (5-40)
[2022-12-04 10:59] LABS: Hemoglobin A1c 6.4 % (3.8-5.6)
[2022-12-04 11:15] LABS: Squamous Epithelial Cells - UA 0-5 SEEN /hpf (5-10)
[2022-12-04 11:16] LABS: Microalbumin:Creatinine Ratio 299.8 mg/g CRE (<30 mg/g CRE); Protein, Urine (Random) 19.2 mg/dL (<11.9); Protein:Creat Ratio 420 mg/g CRE (0-200); Transitional Epithelial - Ur 0-5 SEEN /hpf (0-5)
[2022-12-04 11:36] LABS: PTHIN 18.3 pg/mL (18.4-80.1)
== END | disposition home or self-care (01) ==
LOC: MFPLAB 09:07
PROVIDERS: PCP Family Medicine; Referring Provider Family Medicine; Visit Provider Family Medicine
DX: E11.22 Type 2 diabetes mellitus with diabetic chronic kidney disease (principal); E55.9 Vitamin D deficiency, unspecified
CPT/HCPCS: 36415; 80053; 80061; 81001; 82043; 82306; 82570; 83036; 83970; 84100; 84156; 85025

== ENCOUNTER 2023-01-01 17:11 | Emergency (ER) | payer MEDICARE, SELFPAY ==
[2023-01-01 17:12] VITALS: BP 207/94; PULSE 75; RESP 15; TEMP 36.2; O2SAT 95; BMI 31.9
--- NOTE | 2023-01-01 17:59 | CT_ITS ---
EXAM: CT HEAD WITHOUT INTRAVENOUS CONTRAST CLINICAL INDICATION: head injury TECHNIQUE: Multiple axial images were obtained of the head without intravenous contrast. This CT exam was performed using one or more of the following dose reduction techniques: automated exposure control, adjustment of the mA and/or kV according to patient size, and/or use of iterative reconstruction technique. This report was created using Life[employer] report generation technology. COMPARISON: 09/17/2014 FINDINGS: BRAIN AND EXTRA-AXIAL SPACES: The ventricular system and cortical sulci are mildly enlarged in size. There is hypoattenuation in the periventricular white matter. No intra- or extra-axial hemorrhage. No evidence of acute infarct. No intracranial mass or mass effect. There is preservation of the ballesteros/white matter interface. Posterior fossa structures are unremarkable. Basal cisterns are patent. BONES/JOINTS: Unremarkable. No discrete lytic or blastic abnormalities. SINUSES: Is opacification left maxillary sinus with calcifications which may represent chronic sinusitis. MASTOID AIR CELLS: Unremarkable. Clear. ORBITS: Visualized globes, extraocular muscles, optic nerves and retrobulbar fat appear unremarkable. CT/Brain/Head without Contrast IMPRESSION: 1. No acute intracranial abnormality. 2. Underlying senescent change with small vessel ischemia. 3. Chronic appearing left maxillary sinusitis. Electronically Signed: North Mccarty MD at 19:08 EDT ,
--- NOTE | 2023-01-01 17:59 | CT_ITS ---
EXAM: CT CERVICAL SPINE WITHOUT INTRAVENOUS CONTRAST CLINICAL INDICATION: pain TECHNIQUE: Helically acquired images were obtained of the cervical spine without intravenous contrast. 2D reformatted images were reviewed. This CT exam was performed using one or more of the following dose reduction techniques: automated exposure control, adjustment of the mA and/or kV according to patient size, and/or use of iterative reconstruction technique. This report was created using [employer] report generation technology. COMPARISON: None. FINDINGS: VERTEBRAE: There is mild reversal the normal cervical lordosis. No fracture. No traumatic subluxation. No discrete lytic or blastic abnormality. Normal craniocervical junction and cervicothoracic junction. DISCS/SPINAL CANAL/NEURAL FORAMINA: There is severe disc space narrowing from C3 through C7. SOFT TISSUES: Unremarkable. No prevertebral soft tissue swelling. LYMPH NODES: Unremarkable. No cervical adenopathy. LUNG APICES: Unremarkable as visualized. Clear. CT/Spine Cervical without Contras IMPRESSION: 1. No acute osseous abnormalities of the cervical spine. 2. Multilevel degenerative change with disc space narrowing. There is mild reversal of the normal cervical lordosis which may be due to a muscular strain. Electronically Signed: North Mccarty MD at 19:13 EDT ,
--- NOTE | 2023-01-01 18:35 | EDS_ITS ---
HPI History of Present Illness Chief Complaint: Fall Detail of Chief Complaint: Patient had a mechanical fall, abrasion to scalp, head and neck pain Informant: patient and family Narrative Narrative: Patient is a 82-year-old female who is presenting to the ER today with chief complaint of a mechanical fall, head injury, scalp abrasion, and bilateral neck pain. Patient came in by private car. Patient was unloading her groceries from the trunk. Patient states it is very windy outside. Patient was having a hard time with her groceries and her trunk, along with keeping the grocery cart with her secondary to significant amount of wind today and a couple in the car to wait. Patient tripped up on her feet, and she ended up falling backwards. Earlier today patient was sitting on her couch at home folding laundry, patient had ended up sliding off of the couch. Patient stated that she did not hit her head, she has no headache or neck pain from sliding off the couch earlier today. She is on no blood thinners. Patient has no extremity complaints. No chest pain, shortness of breath, abdominal pain, nausea, vomiting, or any other acute complaints. [facility] Medical History (Updated 01/01/23 @ 18:[address] Wesly Black, ) Arthritis Diabetes Hypertension Home Medications amlodipine 5 mg tablet 5 mg PO DAILY 07/15/20 [History Last Taken Unknown] atorvastatin 20 mg tablet 20 mg PO QHS 07/15/20 [History Last Taken Unknown] benazepril 10 mg tablet 10 mg PO DAILY 07/15/20 [History Last Taken Unknown] hydrochlorothiazide 25 mg tablet 25 mg PO DAILY 07/15/20 [History Last Taken Unknown] hydrocodone-acetaminophen 5-325mg 5mg-325mg 1 ea PO TID PRN Pain Score 1-10 07/15/20 [History Last Taken Unknown] linagliptin 5 mg tablet 5 mg PO DAILY 07/15/20 [History Last Taken Unknown] magnesium amino acid chelate 100 mg tablet 200 mg PO DAILY 07/15/20 [History Last Taken Unknown] omeprazole 20 mg capsule,delayed release 20 mg PO DAILY 07/15/20 [History Last Taken Unknown] selenium 200 mcg tablet 200 mcg PO DAILY 07/15/20 [History Last Taken Unknown] Allergy/AdvReac Type Severity Reaction Status Date / Time Penicillins Allergy Swelling Verified 01/01/23 17:16 Sulfa (Sulfonamide Allergy Unknown Verified 01/01/23 17:16 Antibiotics) Social History (System 09/12/21 @ 15:01 by Sydnie Prater) Smoking Status: Never smoker ROS ROS ED ROS Narrative REVIEW OF SYSTEMS: Unless otherwise stated in this report the patient's positive and negative responses for review of systems for constitutional, eyes, ENT, cardiovascular, respiratory, gastrointestinal, neurological, , musculoskeletal, and integument systems and related systems to the presenting problem are either stated in the history of present illness or were not pertinent or were negative for the symptoms and/or complaints related to the presenting medical problem. EXAM Physical Exam Narrative Exam Narrative: Vital signs reviewed and patient is not hypoxic. General: The patient appears well and in no apparent distress. Patient is resting comfortably on cart. Not toxic, lethargic, or listless. Skin: Warm, dry, no pallor noted. There is no rash noted. Head: Normocephalic, patient has a small abrasion to the top of her scalp, no laceration. Patient has no midline paracervical tenderness to palpation. Patient has no pain over bilateral transverse process. Patient has mild tenderness to palpation to the soft tissue of paracervical soft tissue. Patient has full range of motion of her cervical spine with minimal pain. Patient keeps stating that her neck hurts, But appears to be more muscle skeletal. Patient has no facial bony tenderness to palpation. eye: Normal conjunctiva, no drainage, EOMI. PERRL. Ears, Nose, Mouth, and Throat: oral mucosa is moist. No injury to the dentition. Nares patent. Mouth without vesicles. Ear canals patent. Tm's without Erythema. No hemotympanum, flores signs, raccoon eyes. Cardiovascular: Regular Rate and Rhythm, no murmurs, gallops, or rubs Respiratory: Patient is in no distress, no accessory muscle use, lungs are clear to auscultation, no wheezing, rales or rhonchi Back: non-tender, no CVA tenderness bilaterally to percussion. NO CTLS midline or paracervicl tenderness to palpation. GI: Soft, no tenderness to palpation, no masses appreciated. No rebound, guarding, or rigidity noted. Musculoskeletal: The patient has full range of motion of all extremities and joints with no difficulty. Patient has no motor, no sensory deficits. Neurological: A&O x4, normal speech, no focal neurological deficits. Psychiatric: Cooperative Const Vital Signs: 01/01/23 17:12 01/01/23 17:41 Temperature 97.2 F L Temperature Source Temporal Pulse Rate 75 Respiratory Rate 15 Respiratory Effort Normal Non-Labored Respiratory Depth Normal Respiratory Pattern Normal Blood Pressure 207/94 H Blood Pressure Mean 131 Pulse Ox 95 Oxygen Delivery Method Room Air Room Air MDM MDM Radiography Diagnostic Testing: Clinical Impression(s) from Imaging Studies Brain CT 01/01/23 17:59 IMPRESSION: 1. No acute intracranial abnormality. 2. Underlying senescent change with small vessel ischemia. 3. Chronic appearing left maxillary sinusitis. Electronically Signed: North Mccarty MD at 19:08 EDT , Cervical Spine CT 01/01/23 17:59 IMPRESSION: 1. No acute osseous abnormalities of the cervical spine. 2. Multilevel degenerative change with disc space narrowing. There is mild reversal of the normal cervical lordosis which may be due to a muscular strain. Electronically Signed: North Mccarty MD at 19:13 EDT , Patient had a CT of the brain and cervical spine that showed no acute abnormalities. Please see the official report. Differential Diagnosis Differential Diagnosis: Closed head injury, intracranial bleed, cervical vertebral injury, cervical stra in, fall, scalp abrasion, scalp laceration Treatment and Re-Evaluation Comments:: Patient had a CT of the brain cervical spine that showed no acute injury. Patient's tetanus shot was 9 years ago, she does not want a tetanus update today. Patient was given Tylenol to help with her headache. Patient scalp abrasion was cleaned and dressed with bacitracin by nursing staff. Education on closed head injury was done at bedside. Patient will follow-up with PCP. Patient will use ice and cervical stretching. Patient will use Tylenol as needed for headache at home. Patient return if intractable headache, nausea, vomiting, or any other acute changes. No questions at discharge. Discharge Plan Triage Chief Complaint: Fall ED Provider: Wesly Black Dx/Rx/DC Orders Clinical Impression: CHI (closed head injury), Cervical muscle strain, Headache, Fall Instructions: ED Head Injury (Adult), ED Neck Sprain or Strain, ED Skin Avulsion, ED Fall Prevention, ED RICE Prescriptions: No Action atorvastatin 20 MG tablet 20 mg PO QHS hydrocodone-acetaminophen 1 EACH tablet 1 ea PO TID PRN (Reason: Pain Score 1-10) amlodipine 5 MG tablet 5 mg PO DAILY selenium 200 MCG tablet 200 mcg PO DAILY omeprazole 20 MG capsule,delayed release(DR/EC) 20 mg PO DAILY hydrochlorothiazide 25 MG tablet 25 mg PO DAILY benazepril 10 MG tablet 10 mg PO DAILY magnesium amino acid chelate 100 MG tablet 200 mg PO DAILY linagliptin 5 mg tablet 5 mg PO DAILY Label Comments: TAKE 1 (ONE) TABLET ONCE A DAY Primary Care Provider: Satish Berry Referrals: Satish Berry MD [Primary Care Provider] - 3-5 Days Activity Restrictions/Additional Instructions: Use Tylenol every 4 hours as needed for headache. Use topical antibiotic ointment to superficial abrasion to your scalp 3-4 times a day for the next week. Follow-up with PCP. Close head injury instructions were discussed at bedside and on discharge paperwork. Disposition Disposition: Home, Self Care Discharge Date/Time: 01/01/23 19:56
== END 2023-01-01 19:56 | disposition home or self-care (01) ==
PROVIDERS: Emergency Provider Emergency Medicine; PCP Family Medicine; Visit Provider Emergency Medicine
DX: S09.90XA Unspecified injury of head, initial encounter (principal); E11.9 Type 2 diabetes mellitus without complications; S16.1XXA Strain of muscle, fascia and tendon at neck level, initial encounter; I10 Essential (primary) hypertension; R51.9 Headache, unspecified; W18.30XA Fall on same level, unspecified, initial encounter
CPT/HCPCS: 70450; 72125; 99282

== ENCOUNTER 2023-01-08 09:52 | Inpatient (IN) | payer MEDICARE, SELFPAY ==
[2023-01-08] VITALS (7 sets, daily range): BP systolic 160–208; BP diastolic 65–89; PULSE 65–73; RESP 16–18; TEMP 35.8–36.7; O2SAT 92–96; BMI 32.7; BMI 31.7
--- NOTE | 2023-01-08 10:18 | CT_ITS ---
STUDY: CT BRAIN WITHOUT CONTRAST REASON FOR EXAM: Female, 82 years old. Trauma, confusion RADIATION DOSAGE (If Supplied By Facility): CTDIvol = ( 44.99 ) mGy, DLP = ( 796.11 ) mGycm TECHNIQUE: Transaxial CT imaging of the brain was performed without administration of intravenous contrast material. Individualized dose optimization techniques were used for this CT. COMPARISON: Comparison is made with prior study January 01, 2023. FINDINGS: Normal soft tissue structures. Normal calvarium. There is mild cerebral atrophy with widening of the extra-axial spaces and ventricular dilatation. There are areas of decreased attenuation within the white matter tracts of the supratentorial brain, consistent with microvascular disease changes. Normal basal ganglia and thalami. Normal brainstem. Normal cerebellum. There is no intracranial hemorrhage. There are no findings of an acute ischemic infarction. Atherosclerotic plaque formation of the cavernous portions of the internal carotid arteries bilaterally. There is opacification of the left maxillary sinus. There is evidence of prior open reduction internal fixation of the anterior left maxillary sinus wall. CT/Brain/Head without Contrast IMPRESSION: Chronic involutional changes of the brain. Prior repair of a left anterior maxillary wall fracture. Opacification of the left maxillary sinus. Electronically Signed: Kirill Rocha MD at 11:33 EDT ,
--- NOTE | 2023-01-08 10:21 | EDS_ITS ---
HPI History of Present Illness Chief Complaint: Complaint Informant: patient and family Narrative Narrative: Patient presents with some confusion and urinary symptoms. This patient evidently fell and hit her head about a week ago. She was seen. She had scans done. But ever since then she has had some headaches. They are not terrible but they are present. She has also had some waxing and waning confusion that mostly started over the last few days. She will have a little trouble finding the right word to say things. She also occasionally has a tendency to lean to the side when walking more often to the left than the right. No focal weakness or numbness or tingling. No trouble understanding things. She is also been a little bit more tired. She has also had frequency of urination along with a couple urinary accidents. The frequency has really gotten bad in the last day or so. She states it has a strange color to it also. There is some dysuria. No notable odor. She has not had fevers. She is not on any anticoagulation. She does live alone. [facility] Medical History Arthritis Diabetes Hypertension Urinary tract infection symptoms Home Medications amlodipine 5 mg tablet 5 mg PO DAILY 07/15/20 [History Last Taken Unknown] atorvastatin 20 mg tablet 20 mg PO QHS 07/15/20 [History Last Taken Unknown] benazepril 10 mg tablet 10 mg PO DAILY 07/15/20 [History Last Taken Unknown] hydrochlorothiazide 25 mg tablet 25 mg PO DAILY 07/15/20 [History Last Taken Unknown] hydrocodone-acetaminophen 5-325mg 5mg-325mg 1 ea PO TID PRN Pain Score 1-10 07/15/20 [History Last Taken Unknown] linagliptin 5 mg tablet 5 mg PO DAILY 07/15/20 [History Last Taken Unknown] magnesium amino acid chelate 100 mg tablet 100 mg PO QHS 07/15/20 [History Last Taken Unknown] omeprazole 20 mg capsule,delayed release 20 mg PO DAILY 07/15/20 [History Last Taken Unknown] selenium 200 mcg tablet 200 mcg PO DAILY 07/15/20 [History Last Taken Unknown] Allergy/AdvReac Type Severity Reaction Status Date / Time Penicillins Allergy Swelling Verified 01/08/23 09:55 Sulfa (Sulfonamide Allergy Unknown Verified 01/08/23 09:55 Antibiotics) Social History Smoking Status: Never smoker ROS ROS ED Constitutional Constitutional ED: Denies fever(s) Eyes Eyes: Denies blurry vision, change in vision or diplopia ENT ENT ED: Denies rhinorrhea Cardiovascular Cardiovascular: Denies chest pain or palpitations Respiratory/Chest Respiratory/Chest: Denies cough or dyspnea Gastrointestinal Gastrointestinal: Denies abdominal pain, diarrhea, nausea or vomiting Genitourinary Genitourinary ED: Reports dysuria and urinary frequency; Denies hematuria Musculoskeletal Musculoskeletal: Denies myalgias Integumentary Denies rash Neurologic Neurologic: Reports headache(s); Denies paresthesias or weakness Allergic/Immunologic Allergic/Immunologic ED: Denies urticaria EXAM Physical Exam Narrative Exam Narrative: Patient is awake alert nontoxic. HEENT shows no sign of acute trauma. Mucous membranes are still moist. Eyes show no icterus. Range of motion is normal. Pupillary response is normal. No visual field cut. Neck is supple no pain with motion Lungs are clear. Saturations are normal at 95% on room air showing no hypoxia. Heart is regular. I hear no murmur. Abdomen is soft and nontender. shows no suprapubic or CVA tenderness on exam. Extremities show no edema or asymmetry. Neurologically she is awake she is alert she is appropriate. There is no facial droop or visual field cut. No unilateral weakness. She occasionally has trouble finding the right word to say. Most of her speech is actually quite fluent though. When I asked who the president is she could tell me a lot of about him but just could not think of his name but she got location year correct. She could tell me about him and the prior president. She just could not think of his name. Const Vital Signs: 01/08/23 09:53 01/08/23 12:09 Temperature 96.4 F L 97.1 F L Temperature Source Temporal Temporal Pulse Rate 73 66 Respiratory Rate 18 18 Blood Pressure 160/83 H 183/75 H Blood Pressure Mean 108 111 Pulse Ox 95 96 Oxygen Delivery Method Room Air Room Air MDM MDM MDM Narrative Medical decision making narrative: Patient had normal or no acute CT just the other day. But this will be repeated with her fall and her symptoms. Blood work and urine is also ordered and pending. Some of her symptoms could match normal pressure hydrocephalus but her CT did not show any marked abnormalities just at the end of December. My independent interpretation of her CT does not show any acute process today. Final reading shows chronic changes and opacification of left maxillary sinus that does not explain her symptoms. Patient's white count is slightly up. Electrolytes show no marked abnormalities. Glucose is up a bit at 151. Magnesium is normal. Urine does not show sign of infection. With negative urinalysis 1 must consider possible stroke. She does have expressive aphasia on exam. This is new over the last 2 days. She is not an acute stroke and would not be appropriate for tPA due to the time of onset and mild symptoms. But I think she does need to come in. She also complains of generalized weakness. I ended up adding COVID and flu. It ends up both of those are positive. But this does not fully explain her neurologic symptoms. I think she does need to come in the hospital. Before I had gotten the flu and COVID results I had discussed the case with the hospitalist. Lab Data Attestation: I reviewed the patient's lab results. Labs: Laboratory Results - last 24 hr 01/08/23 01/08/23 01/08/23 10:30 10:30 10:30 WBC 15.0 H RBC 5.41 H Hgb 14.0 Hct 46.0 MCV 85.0 MCH 25.9 L MCHC 30.4 L RDW Std Deviation 43.8 RDW Coeff of Raul 14.3 Plt Count 306 MPV 11.1 Immature Gran % (Auto) 0.500 Neut % (Auto) 79.1 H Lymph % (Auto) 11.1 L [place] % (Auto) 7.8 Eos % (Auto) 1.0 Baso % (Auto) 0.5 Absolute Neuts (auto) 11.8 H Absolute Lymphs (auto) 1.66 Nucleated RBC % 0 Sodium 140 Potassium 3.9 Chloride 105 Carbon Dioxide 27.0 Anion Gap 8 BUN 22 H Creatinine 1.04 H Estim Creat Clear Calc 38.18 Est GFR (MDRD) Af Amer 65 Est GFR (MDRD) Non-Af 54 L BUN/Creatinine Ratio 21.2 H Glucose 151 H Calcium 9.9 Magnesium 1.8 Urine Color Urine Clarity Urine pH Ur Specific [place] Urine Protein Urine Glucose (UA) Urine Ketones Urine Occult Blood Urine Nitrite Urine Bilirubin Urine Urobilinogen Ur Leukocyte Esterase Urine RBC Urine WBC Ur Squamous Epith Cells Urine Bacteria Urine Mucus 01/08/23 12:08 WBC RBC Hgb Hct MCV MCH MCHC RDW Std Deviation RDW Coeff of Raul Plt Count MPV Immature Gran % (Auto) Neut % (Auto) Lymph % (Auto) [place] % (Auto) Eos % (Auto) Baso % (Auto) Absolute Neuts (auto) Absolute Lymphs (auto) Nucleated RBC % Sodium Potassium Chloride Carbon Dioxide Anion Gap BUN Creatinine Estim Creat Clear Calc Est GFR (MDRD) Af Amer Est GFR (MDRD) Non-Af BUN/Creatinine Ratio Glucose Calcium Magnesium Urine Color Yellow Urine Clarity Clear Urine pH 5.0 Ur Specific [place] 1.020 Urine Protein 500 H Urine Glucose (UA) 1000 H Urine Ketones 5 H Urine Occult Blood 10 H Urine Nitrite Negative Urine Bilirubin Negative Urine Urobilinogen Normal Ur Leukocyte Esterase Negative Urine RBC 0 SEEN Urine WBC 0 SEEN Ur Squamous Epith Cells 0 SEEN Urine Bacteria 0 SEEN Urine Mucus 0 SEEN Radiography Diagnostic Testing: Clinical Impression(s) from Imaging Studies Brain CT 01/08/23 10:18 IMPRESSION: Chronic involutional changes of the brain. Prior repair of a left anterior maxillary wall fracture. Opacification of the left maxillary sinus. Electronically Signed: Kirill Rocha MD at 11:33 EDT , EKG Initial EKG: Comments: My independent interpretation of the patient's EKG done for generalized weakness shows sinus rhythm with occasional PACs and compensatory pause. Overall rate is 69. No sign of acute ST elevation or depression. Mild baseline variation and nonspecific ST changes. OR interval, QRS duration and QTc are normal. Discharge Plan Triage Chief Complaint: Complaint ED Provider: Kevin Lang Dx/Rx/DC Orders Clinical Impression: Expressive aphasia, COVID, Influenza B, Generalized weakness Primary Care Provider: Satish Berry Disposition Disposition: Acute Care Hospital [facility] Discharge Date/Time: 01/08/23 14:05
[2023-01-08 10:54] LABS: Absolute Lymphocyte Count 1.66 X10^3/uL (0.83-4.51); Absolute Neutrophil Count 11.8 X10^3/uL (2.0-7.7); Basophil# 0.07 X10^3/uL; Basophil% 0.5 % (0-1); Eosinophil# 0.15 X10^3/uL; Lymphocyte # 1.66 X10^3/ul (0.83-4.51); Lymphocyte % 11.1 % (19-41); Mean Corp Hgb Conc 30.4 g/dL (32-36); Mean Corpuscular Hgb 25.9 pg (27.0-32.0); Mean Platelet Vol. 11.1 fl (6.2-12.0); Monocyte# 1.17 X10^3/uL; Monocyte% 7.8 % (0-10); NRBC Flagged by Analyzer 0 % (0-5); Neutrophil # 11.84 X10^3/uL (2.7-7.7); Neutrophil % 79.1 % (47-70); Platelet Count 306 K/mm3 (150-450); RBC Distribution Width CV 14.3 % (11.6-14.6); RBC Distribution Width SD 43.8 fl (35.1-43.9); Red Blood Count 5.41 M/mm3 (4.2-5.4)
[2023-01-08 11:05] LABS: Anion Gap 8 (5-15); BUN 22 mg/dL (7-18); BUN/Creat Ratio 21.2 RATIO (10-20); Calcium,Total 9.9 mg/dL (8.5-10.1); Chloride 105 mmol/L (98-107); Creatinine, Serum 1.04 mg/dL (0.55-1.02); EST Glomerular Filtration Rate 54 mL/min (>60); Est Glom Filt Rate - Afr Amer 65 mL/min (>60); Estimated Creatinine Clearance 38.18 ml/min; Glucose 151 mg/dL (74-106); Potassium 3.9 mmol/L (3.5-5.1); Sodium Level 140 mmol/L (136-145)
[2023-01-08 12:17] LABS: Bacteria 0 SEEN /hpf (None Seen); Mucous, Urine 0 SEEN /hpf (<or=2+); Red Blood Cells-Urine 0 SEEN /hpf (0-5); Squamous Epithelial Cells - UA 0 SEEN /hpf (5-10); White Blood Cells 0 SEEN /hpf (0-5)
[2023-01-08 12:30] LABS: Color, Urine Yellow (Yellow); Glucose, Dipstick 1000 mg/dl (Normal); Ketone-Dipstick 5 mg/dl (Negative); Leukocyte Esterase-Dipstick Negative /ul (Negative); Nitrite-Dipstick Negative (Negative); Occult Blood-Urine 10 /ul (Negative); Protein-Dipstick 500 mg/dl (Negative); Urine Bilirubin Dipstick Negative (Negative); Urine Clarity Clear (Clear); Urine Urobilinogen Normal (Normal)
--- NOTE | 2023-01-08 13:11 | HP.PCM.HOS_ITS ---
HPI - General General Date of Admission: 01/08/23 Date of Service: 01/08/23 HPI Narrative JACOB MCCALL, is a 82 F with a past medical history as outlined who presents via the ED on 01/08/2023 with a complaint of difficulty finding her words and confusion. Patient states she had a fall about a week ago and was seen in the ED where she had scans done which were negative. She had also been getting confused over the last few days and had an associated headache. She also that she was leaning more to the left than the right as well as walking. She denied any focal weakness or numbness or tingling. She had had frequency of urination but denied any burning with urination and said the frequency had really gotten bad in the last day or so. Vitals in the ED with temperature of 91.1 Fahrenheit with pulse rate of 68 and blood pressure of 160/65. Pulse ox was 95% on room air. CBC showed WBC of 15 and hemoglobin of 14 with platelets of 306. Chemistry showed creatinine of 1.04 but was otherwise unremarkable. Urinalysis showed negative bacteria or WBC and leukocyte esterase. CT of the brain showed no acute intracranial pathology. CTA of the head and neck also did not show any hemodynamically significant stenosis. He has been admitted to be managed for acute encephalopathy to rule out a stroke. [facility] Medical History Arthritis Diabetes Hypertension Urinary tract infection symptoms Home Medications amlodipine 5 mg tablet 5 mg PO DAILY 07/15/20 [History Last Taken Unknown] atorvastatin 20 mg tablet 20 mg PO QHS 07/15/20 [History Last Taken Unknown] benazepril 10 mg tablet 10 mg PO DAILY 07/15/20 [History Last Taken Unknown] hydrochlorothiazide 25 mg tablet 25 mg PO DAILY 07/15/20 [History Last Taken Unknown] hydrocodone-acetaminophen 5-325mg 5mg-325mg 1 ea PO TID PRN Pain Score 1-10 07/15/20 [History Last Taken Unknown] linagliptin 5 mg tablet 5 mg PO DAILY 07/15/20 [History Last Taken Unknown] magnesium amino acid chelate 100 mg tablet 100 mg PO QHS 07/15/20 [History Last Taken Unknown] omeprazole 20 mg capsule,delayed release 20 mg PO DAILY 07/15/20 [History Last Taken Unknown] selenium 200 mcg tablet 200 mcg PO DAILY 07/15/20 [History Last Taken Unknown] Allergy/AdvReac Type Severity Reaction Status Date / Time Penicillins Allergy Swelling Verified 01/08/23 09:55 Sulfa (Sulfonamide Allergy Unknown Verified 01/08/23 09:55 Antibiotics) Social History Smoking Status: Never smoker ROS Constitutional Constitutional: Reports fatigue, malaise and weakness; Denies anorexia, chills or fever(s) Eyes Eyes: Denies change in vision ENT HEENT: Denies dysphagia, headache(s), sinus pressure or sore throat Cardiovascular Cardiovascular: Denies chest pain, dyspnea on exertion, edema, lightheadedness, orthopnea, palpitations, paroxysmal nocturnal dyspnea, rapid heart rate or syncope Respiratory/Chest Respiratory/Chest: Denies cough, dyspnea, productive cough, shortness of breath at rest, shortness of breath with exertion or wheezing Gastrointestinal Gastrointestinal: Denies abdominal pain, coffee ground emesis, diarrhea, dyspepsia, melena, nausea or vomiting Genitourinary Genitourinary: Reports urinary frequency; Denies burning urination or dysuria Musculoskeletal Musculoskeletal: Denies arthralgias or joint stiffness Neurologic Neurologic: Reports confusion; Denies dizziness, focal weakness, seizures, syncope or tingling Psychiatric Psychiatric: Denies anxiety or depression Hematologic/Lymphatic Hematologic/Lymphatic: Denies anemia Vital Signs Vital Signs Vital Signs: 01/08/23 09:53 01/08/23 12:09 Temperature 96.4 F L 97.1 F L Temperature Source Temporal Temporal Pulse Rate 73 66 Respiratory Rate 18 18 Blood Pressure 160/83 H 183/75 H Blood Pressure Mean 108 111 Pulse Ox 95 96 Oxygen Delivery Method Room Air Room Air Weight Weight: 196 lb 10.437 oz Body Mass Index (BMI) 32.7 Physical Exam Const alert, oriented x3, no apparent distress, average body habitus and healthy appearing General Appearance: cooperative HEENT normocephalic, head/scalp atraumatic, hearing grossly normal bilaterally, moist oral mucous membranes and oropharynx normal Eyes PERRL, EOMs intact bilaterally and conjunctivae normal Neck no lymphadenopathy, supple and no JVD Resp normal respiratory effort, no use of accessory muscles and clear to auscultation bilaterally Cardio regular rate, regular rhythm, S1 normal heart sound, S2 normal heart sound and no murmurs GI normal to inspection, nondistended, normoactive bowel sounds, soft to palpation, non-tender and non-distended Extremity normal to inspection, full ROM and no clubbing, cyanosis or edema Neuro oriented x3, CN's II-XII intact bilaterally, moves all extremities and no focal motor deficits Neuro Narrative: has some slowness of speech, but sounded lucid Sensorium / Orientation: awake and alert Motor Exam: strength 5/5 throughout Psych affect normal Results Lab / Micro Data Result Diagrams: 01/09/23 05:28 01/09/23 05:28 Labs: Laboratory Results - last 24 hr 01/08/23 10:30: WBC 15.0 H, RBC 5.41 H, Hgb 14.0, Hct 46.0, MCV 85.0, MCH 25.9 L , MCHC 30.4 L, RDW Std Deviation 43.8, RDW Coeff of Raul 14.3, Plt Count 306, MPV 11.1, Immature Gran % (Auto) 0.500, Neut % (Auto) 79.1 H, Lymph % (Auto) 11.1 L, [place] % (Auto) 7.8, Eos % (Auto) 1.0, Baso % (Auto) 0.5, Absolute Neuts (auto) 11.8 H, Absolute Lymphs (auto) 1.66, Nucleated RBC % 0 01/08/23 10:30: Sodium 140, Potassium 3.9, Chloride 105, Carbon Dioxide 27.0, Anion Gap 8, BUN 22 H, Creatinine 1.04 H, Estim Creat Clear Calc 38.18, Est GFR (MDRD) Af Amer 65, Est GFR (MDRD) Non-Af 54 L, BUN/Creatinine Ratio 21.2 H, Glucose 151 H, Calcium 9.9 01/08/23 12:08: Urine Color Yellow, Urine Clarity Clear, Urine pH 5.0, Ur Specific [place] 1.020, Urine Protein 500 H, Urine Glucose (UA) 1000 H, Urine Ketones 5 H, Urine Occult Blood 10 H, Urine Nitrite Negative, Urine Bilirubin Negative, Urine Urobilinogen Normal, Ur Leukocyte Esterase Negative, Urine RBC 0 SEEN, Urine WBC 0 SEEN, Ur Squamous Epith Cells 0 SEEN, Urine Bacteria 0 SEEN, Urine Mucus 0 SEEN Radiology Impression Brain CT 01/08/23 10:18 IMPRESSION: Chronic involutional changes of the brain. Prior repair of a left anterior maxillary wall fracture. Opacification of the left maxillary sinus. Electronically Signed: Kirill Rocha MD at 11:33 EDT , Assessment & Plan Assessment/Plan (1) Expressive aphasia: (2) Fall: PLAN: Plan #Expressive aphasia, to rule out a stroke * admit to PCU * NIHSS is 0 * does have very mild expressive aphasia * CT of the braion showed no acute intracranial pathology * will order MRI of the brain * CTA of the head and neck showed no hemodynamically signficantly stenosis * keep NPO until she passes speech evaluation * hold BP meds to allow for permissive hypertension in the event of a stroke * consult PT./OT and speech therapy * fall precautions * Aspirin and high intensity statin * Check A1c * #Debility due to mechanical fall: PT.OT on board. Fall precautions #Hypertension: On amlodipine, benazepril and hydrochlorothiazide. We will hold to allow for permissive hypertension. #Type 2 diabetes mellitus: On linagliptin. #GERD: on PPI DVT prophylaxis; SCDs CODE STATUS: Full code * Patient counseled extensively about different types of CODE STATUS including full code, DNR CCA and DNR CCA. Patient elects to be full code. * Total [id number] time 16 minutes. * Total time spent on evaluation and management of patient, reviewing chart and specialist notes, discussing plan with patient and her daughters, discussion with nursing and ancillary staff as well as documentation: 78 mins Charges/Coding Visit Charges Inpatient E&M: 94424 Init Hosp L3 Procedures Hospitalists Procedures: 84018 Advncd Care Plan 30 Min
--- NOTE | 2023-01-08 13:28 | CT_ITS ---
STUDY: CTA HEAD AND NECK WITH CONTRAST REASON FOR EXAM: Female, 82 years old. Stroke RADIATION DOSAGE (If Supplied By Facility): CTDIvol = ( 26.04 ) mGy, DLP = ( 697.93 ) mGycm TECHNIQUE: CT angiography was performed with a multi-detector CT scanner. Data acquisition was obtained from the skull base through the vertex following intravenous administration of IV 100mL Isovue-370. MIP images were reconstructed from the axial data set. Post-processing of the angiographic images was performed, with multiplanar reformation and 3D reconstruction. Individualized dose optimization techniques were used for this CT. COMPARISON: No relevant priors. FINDINGS: Normal bilateral petrous carotid arteries. Normal right cavernous carotid artery with a normal supraclinoid bifurcation. There is calcified plaque formation of the left cavernous carotid artery, without a cross-sectional luminal stenosis. Normal right A1 segments of the anterior cerebral artery. Normal left A1 segments of the anterior cerebral artery. Normal intact anterior communicating artery (ACOM). Normal bilateral A2 segments of the anterior cerebral arteries. Normal right M1 and M2 segments of the middle cerebral arteries, with a normal M1 bifurcation. Normal left M1 and M2 segments of the middle cerebral arteries, with a normal M1 bifurcation. Normal right posterior communicating artery (PCOM). Normal left posterior communicating artery (PCOM). Normal bilateral vertebral arteries. Normal basilar artery with a normal basilar bifurcation. The visualized bilateral superior cerebellar (SCA) arteries are normal. Normal bilateral P1, P2 and visualized P3 segments of the posterior cerebral arteries. There is no demonstrated aneurysm of the [place]. Opacification of the left maxillary sinus. Heterogeneous enlargement of the thyroid with a substernal extension. AORTIC ARCH: There is atherosclerotic calcific plaque formation of the aortic arch and great vessels arising from the aortic arch, without a hemodynamically significant stenosis. There is a normal origin of the brachiocephalic, left common carotid, and left subclavian arteries. RIGHT CAROTID ARTERIES: Normal right common carotid artery (CCA). Normal right common carotid bulb. There is mild atherosclerotic plaque formation of the origin of the right internal carotid artery with less than 50% cross sectional diameter stenosis. Normal visualized cervical portion of the right internal carotid artery. Normal origin of the right external carotid artery (ECA). LEFT CAROTID ARTERIES: Normal left common carotid artery (CCA). Normal left common carotid bulb. There is mild atherosclerotic plaque formation of the origin of the left internal carotid artery with less than 50% cross sectional diameter stenosis. Normal visualized cervical portion of the left internal carotid artery. Normal origin of the left external carotid artery (ECA). VERTEBRAL ARTERIES: Normal bilateral vertebral arteries. CT/CTA Head AND Neck W/ Contrast IMPRESSION: Calcific plaques seen at the origin of the right and left internal carotid arteries causing less than 50% narrowing. Electronically Signed: Kirill Rocha MD at 14:19 EDT ,
--- NOTE | 2023-01-08 13:28 | MRI_ITS ---
STUDY: MRI BRAIN WITHOUT CONTRAST REASON FOR EXAM: Female, 82 years old. expressive aphasia TECHNIQUE: Standardized multiplanar fat and water weighted pulse sequences were obtained. COMPARISON: Head CT 01/08/2023. BRAIN AND EXTRA-AXIAL SPACES: No intracranial mass, mass effect, or midline shift. No hemorrhage, territorial infarct or acute ischemia. Moderately extensive T2 signal hyperintensity in the white matter are consistent with microvascular ischemia. Mild cerebral atrophy with widening of the extra-axial spaces and ventricular dilation. Basal cisterns are unremarkable. SELLA: Pituitary gland is normal in height. AUDITORY SYSTEM: Unremarkable. BONES/JOINTS: Unremarkable. SINUSES: Mucosal thickening in the left maxillary sinus. MASTOID AIR CELLS: Unremarkable as visualized. Clear. ORBITS: Unremarkable as visualized. VASCULATURE: Normal flow voids in the major intracranial circulation. MRI/Brain without Contrast IMPRESSION: 1. No acute findings. 2. Moderately extensive microvascular ischemic changes. Atrophy. 3. Chronic left maxillary sinusitis. Electronically Signed: Courtney Daley MD at 17:49 EDT Reading Location ID and State: [id number] / Tel , Service support ,
[2023-01-08 13:37] LABS: Magnesium 1.8 mg/dL (1.6-2.6)
[2023-01-08 18:14] LABS: Troponin-I HS 99 pg/mL (3.0-54.0)
[2023-01-08 19:58] LABS: Troponin-I HS 88 pg/mL (3.0-54.0)
[2023-01-08 23:43] LABS: Troponin-I HS 85 pg/mL (3.0-54.0)
[2023-01-08] MEDS: Atorvastatin Calcium 80 MG Tablet PO (23:44)
[2023-01-09] VITALS (7 sets, daily range): BP systolic 130–202; BP diastolic 65–89; PULSE 60–70; RESP 16–18; TEMP 36.2–36.7; O2SAT 94–96; BMI 31.7
[2023-01-09 07:29] LABS: Absolute Lymphocyte Count 1.28 X10^3/uL (0.83-4.51); Basophil# 0.05 X10^3/uL; Basophil% 0.5 % (0-1); Eosinophil# 0.22 X10^3/uL; Eosinophils% 2.2 % (0-5); Hematocrit 43.2 % (37-47); Hemoglobin 13.1 g/dL (12.0-15.0); Lymphocyte # 1.28 X10^3/ul (0.83-4.51); Mean Corp Hgb Conc 30.3 g/dL (32-36); Mean Corpuscular Hgb 25.7 pg (27.0-32.0); Mean Corpuscular Volume 84.9 fL (81-99); Mean Platelet Vol. 11.6 fl (6.2-12.0); Monocyte# 1.26 X10^3/uL; Monocyte% 12.8 % (0-10); NRBC Flagged by Analyzer 0 % (0-5); Neutrophil # 6.96 X10^3/uL (2.7-7.7); Neutrophil % 70.9 % (47-70); Platelet Count 280 K/mm3 (150-450); RBC Distribution Width CV 14.4 % (11.6-14.6); Red Blood Count 5.09 M/mm3 (4.2-5.4); White Blood Count 9.8 K/mm3 (4.4-11.0)
[2023-01-09 08:02] LABS: Anion Gap 8 (5-15); BUN 23 mg/dL (7-18); BUN/Creat Ratio 29.7 RATIO (10-20); Calcium,Total 9.4 mg/dL (8.5-10.1); Chloride 104 mmol/L (98-107); Cholesterol 147 mg/dL (200); Creatinine, Serum 0.78 mg/dL (0.55-1.02); EST Glomerular Filtration Rate 76 mL/min (>60); Est Glom Filt Rate - Afr Amer 92 mL/min (>60); Glucose 139 mg/dL (74-106); High Density Lipoprotein 45 mg/dL; Potassium 3.5 mmol/L (3.5-5.1); Sodium Level 139 mmol/L (136-145); Triglycerides 120 mg/dL; Very Low Density Lipoprotein 24 mg/dL (5-40)
--- NOTE | 2023-01-09 10:30 | CASEMGMT ---
RN CM called patient for initial transition planning/care coordination assessment. RN CM introduced self and role at [facility]. Patient alert and oriented. Patient willing to participate in assessment and is able to answer all questions appropriately. Care providers, pharmacy, and demographics verified. Patient wishes to discharge home, denies need for home health at this time. Patient states she has no further needs or concerns at this time. CM to follow for discharge planning needs that may arise. PCP: Kristi Specialists: none Preferred Pharmacy: [facility] Insurance: [employer] Prescription Benefit: yes Living Will/HPOA: yes, daughter Tabitha Vasquez HPOA LNOK: daughters Living Arrangements: Patient lives alone in a 2 story home with bed and bath on first floor. Patient states she is indepnedent at home. Transportation: self, daughters DME/HHC: Patient has raised toilet, cane, walker, and grab bars at home. Patient has had [facility] HHC in the past. Patient was to start outpatient therapy at [facility]. Disposition Plan: Patient to discharge with resumption of outpatient therapy, family support, and follow-up plans in place. Will monitor for home oxygen at discharge. Zoya MYRICK, RN, CM
[2023-01-09] MEDS: hydroCHLOROthiazide 25 MG Tablet PO (10:46)
[2023-01-09] MEDS: Aspirin 81 MG TAB.CHEW PO (10:46)
[2023-01-09] MEDS: Oseltamivir Phosphate 30 MG Capsule PO ×2 (10:47→20:27)
[2023-01-09] MEDS: Pantoprazole Sodium 20 MG Tablet PO (10:47)
[2023-01-09] MEDS: cloNIDine HCl 0.2 MG Tablet PO (10:47)
[2023-01-09] MEDS: Lisinopril 10 MG Tablet PO (10:47)
[2023-01-09] MEDS: amLODIPine 5 MG Tablet PO (10:47)
--- NOTE | 2023-01-09 10:56 | PN_ITS ---
Subjective Subjective Patient seen and examined. Her daughter was by her bedside. She felt much better today. She had an uneventful night. Her MRI of the brain came back as negative for stroke. However she did have positive for flu and influenza. Her blood pressure was also markedly elevated with systolic in the 200s this morning. Review of systems otherwise negative. Objective Data Objective Data Vital Signs: Vital Signs Temp Pulse Resp BP Pulse Ox O2 Del Method 97.1 F L 68 18 160/65 H 95 Room Air 01/09/23 10:35 01/09/23 10:35 01/09/23 10:35 01/09/23 10:35 01/09/23 10:35 01/09/23 10:41 Oxygen Delivery Method Room Air Weight: 190 lb 14.725 oz Body Mass Index (BMI) 31.7 Intake & Output: Intake and Output for Last 24 Hours 01/07/23 01/08/23 01/09/23 23:59 23:59 23:59 Intake Total 620 / 920 740 / 740 Output Total 150 / 750 1100 / 1100 Balance 470 / 170 -360 / -360 Lab / Micro Data Result Diagrams: 01/09/23 05:28 01/09/23 05:28 Labs: Laboratory Results - last 24 hr 01/08/23 10:30: Sodium 140, Potassium 3.9, Chloride 105, Carbon Dioxide 27.0, Anion Gap 8, BUN 22 H, Creatinine 1.04 H, Estim Creat Clear Calc 38.18, Est GFR (MDRD) Af Amer 65, Est GFR (MDRD) Non-Af 54 L, BUN/Creatinine Ratio 21.2 H, Glucose 151 H, Calcium 9.9 01/08/23 10:30: Magnesium 1.8 01/08/23 12:08: Urine Color Yellow, Urine Clarity Clear, Urine pH 5.0, Ur Specific [place] 1.020, Urine Protein 500 H, Urine Glucose (UA) 1000 H, Urine Ketones 5 H, Urine Occult Blood 10 H, Urine Nitrite Negative, Urine Bilirubin Negative, Urine Urobilinogen Normal, Ur Leukocyte Esterase Negative, Urine RBC 0 SEEN, Urine WBC 0 SEEN, Ur Squamous Epith Cells 0 SEEN, Urine Bacteria 0 SEEN, Urine Mucus 0 SEEN 01/08/23 17:20: Troponin I High Sens 99 H 01/08/23 19:20: Troponin I High Sens 88 H 01/08/23 22:54: Troponin I High Sens 85 H 01/09/23 05:28: WBC 9.8, RBC 5.09, Hgb 13.1, Hct 43.2, MCV 84.9, MCH 25.7 L, MCHC 30.3 L, RDW Std Deviation 44.0 H, RDW Coeff of Raul 14.4, Plt Count 280, MPV 11.6, Immature Gran % (Auto) 0.600, Neut % (Auto) 70.9 H, Lymph % (Auto) 13.0 L, [place] % (Auto) 12.8 H, Eos % (Auto) 2.2, Baso % (Auto) 0.5, Absolute Neuts (auto) 7.0, Absolute Lymphs (auto) 1.28, Nucleated RBC % 0 01/09/23 05:28: Sodium 139, Potassium 3.5, Chloride 104, Carbon Dioxide 27.0, Anion Gap 8, BUN 23 H, Creatinine 0.78, Estim Creat Clear Calc 39.70, Est GFR (MDRD) Af Amer 92, Est GFR (MDRD) Non-Af 76, BUN/Creatinine Ratio 29.7 H, Glucose 139 H, Calcium 9.4, Triglycerides 120, Cholesterol 147, LDL Cholesterol 78, VLDL Cholesterol 24, HDL Cholesterol 45 Micro: Microbiology 01/08/23 12:08 Urine, Clean Catch Urine Culture - Preliminary Culture exhibits no growth. 01/08/23 12:55 Nasal Secretion SARS-CoV-2 & FLU Antigen (Rapid) - Final Influenzae B SARS-CoV-2 (COVID 19) Radiography Diagnostic Testing: Radiology Impression Brain CT 01/08/23 10:18 IMPRESSION: Chronic involutional changes of the brain. Prior repair of a left anterior maxillary wall fracture. Opacification of the left maxillary sinus. Electronically Signed: Kirill Rocha MD at 11:33 EDT , Brain MRI 01/08/23 13:28 IMPRESSION: 1. No acute findings. 2. Moderately extensive microvascular ischemic changes. Atrophy. 3. Chronic left maxillary sinusitis. Electronically Signed: Courtney Daley MD at 17:49 EDT , Head/Neck CTA 01/08/23 13:28 IMPRESSION: Calcific plaques seen at the origin of the right and left internal carotid arteries causing less than 50% narrowing. Electronically Signed: Kirill Rocha MD at 14:19 EDT , Physical Exam Const alert, oriented x3, no apparent distress, average body habitus and healthy appearing General Appearance: cooperative HEENT normocephalic, head/scalp atraumatic, hearing grossly normal bilaterally, moist oral mucous membranes and oropharynx normal Eyes PERRL, EOMs intact bilaterally and conjunctivae normal Neck no lymphadenopathy, supple and no JVD Resp normal respiratory effort, normal air movement, no use of accessory muscles and clear to auscultation bilaterally Cardio regular rate, regular rhythm, S1 normal heart sound, S2 normal heart sound and no murmurs GI normal to inspection, nondistended, normoactive bowel sounds, soft to palpation, non-tender and non-distended Extremity normal to inspection, full ROM and no clubbing, cyanosis or edema Neuro oriented x3, CN's II-XII intact bilaterally, moves all extremities and no focal motor deficits Neuro Narrative: no expressive aphasia Sensorium / Orientation: awake and alert Motor Exam: strength 5/5 throughout Psych thought process normal, cooperative and affect normal Assessment & Plan Assessment/Plan (1) Expressive aphasia: (2) Fall: PLAN: Plan #Expressive aphasia, to rule out a stroke * stroke ruled out with negative MRI of the brain * Blood pressure markedly elevated, so hypertensive urgency may have played a role with her symptoms * resume BP meds * PT/OT on board * fall precautions * 2D echo ordered and is pending * * #Influenza infection: Currently on room air. Breathing treatments bronchodilators. Started on Tamiflu. #COVID-19 infection: Asymptomatic. Patient on room air. Will not place on remdesivir or Decadron as she is on room air. * #Debility due to mechanical fall: PT.OT on board. Fall precautions #Hypertension: Poorly controlled. BP elevated in the 200s systolic. Resume amlodipine, benazepril and hydrochlorothiazide. IV hydralzine prn. Gave a dose of clonidine 0.2mg x 1 today also #Type 2 diabetes mellitus: On linagliptin. #GERD: on PPI DVT prophylaxis; SCDs CODE STATUS: Full code * Total time spent on evaluation and management of patient, reviewing chart and specialist notes, discussing plan with patient and her daughters, discussion with nursing and ancillary staff as well as documentation: 45 mins Charges/Coding Visit Charges Inpatient E&M: 00535 Subs Hosp L2
[2023-01-09] MEDS: Atorvastatin Calcium 80 MG Tablet PO (20:27)
[2023-01-09] MEDS: MELATONIN 10 MG TABLET PO (22:48)
[2023-01-10] VITALS (7 sets, daily range): BP systolic 140–160; BP diastolic 65–80; PULSE 59–68; RESP 18; TEMP 36.1–36.6; O2SAT 95–98; BMI 31.7
[2023-01-10 07:41] LABS: Absolute Lymphocyte Count 1.65 X10^3/uL (0.83-4.51); Absolute Neutrophil Count 5.4 X10^3/uL (2.0-7.7); Basophil# 0.07 X10^3/uL; Basophil% 0.8 % (0-1); Eosinophil# 0.21 X10^3/uL; Eosinophils% 2.5 % (0-5); Hemoglobin 13.9 g/dL (12.0-15.0); Lymphocyte # 1.65 X10^3/ul (0.83-4.51); Lymphocyte % 19.6 % (19-41); Mean Corp Hgb Conc 30.2 g/dL (32-36); Mean Corpuscular Hgb 25.6 pg (27.0-32.0); Mean Corpuscular Volume 84.9 fL (81-99); Mean Platelet Vol. 10.6 fl (6.2-12.0); Monocyte# 1.08 X10^3/uL; Monocyte% 12.8 % (0-10); NRBC Flagged by Analyzer 0 % (0-5); Neutrophil # 5.35 X10^3/uL (2.7-7.7); Neutrophil % 63.6 % (47-70); Platelet Count 304 K/mm3 (150-450); RBC Distribution Width CV 14.6 % (11.6-14.6); RBC Distribution Width SD 44.5 fl (35.1-43.9); Red Blood Count 5.42 M/mm3 (4.2-5.4); White Blood Count 8.4 K/mm3 (4.4-11.0)
[2023-01-10 08:33] LABS: Anion Gap 5 (5-15); BUN 29 mg/dL (7-18); BUN/Creat Ratio 31.6 RATIO (10-20); Calcium,Total 9.5 mg/dL (8.5-10.1); Chloride 105 mmol/L (98-107); Creatinine, Serum 0.92 mg/dL (0.55-1.02); EST Glomerular Filtration Rate 62 mL/min (>60); Est Glom Filt Rate - Afr Amer 76 mL/min (>60); Estimated Creatinine Clearance 43.15 ml/min; Glucose 172 mg/dL (74-106); Potassium 3.8 mmol/L (3.5-5.1); Sodium Level 138 mmol/L (136-145)
--- NOTE | 2023-01-10 09:26 | CASEMGMT ---
SAMUEL spoke with patient's daughter Tabitha per her request. Tabitha said she plans on taking patient home with her and she was wondering what patient's insurance pays for as far as home health. SAMUEL explained insurance would pay for therapy a couple of times a week, a nurse maybe once a week, and an aide maybe a couple hours a week for personal care only. Tabitha also asked about a shower chair and rollator. SAMUEL let Tabitha know SW will pass along this information to the case specialist and she can check in with her. Nery WILKINSON
[2023-01-10] MEDS: Pantoprazole Sodium 20 MG Tablet PO (10:14)
[2023-01-10] MEDS: Lisinopril 10 MG Tablet PO (10:14)
[2023-01-10] MEDS: Oseltamivir Phosphate 30 MG Capsule PO (10:14)
[2023-01-10] MEDS: hydroCHLOROthiazide 25 MG Tablet PO (10:14)
[2023-01-10] MEDS: Aspirin 81 MG TAB.CHEW PO (10:14)
[2023-01-10] MEDS: amLODIPine 5 MG Tablet PO (10:14)
--- NOTE | 2023-01-10 14:37 | CASEMGMT ---
RODDY WILLS updated by therapy that patient would benefit from HHC at discharge. RODDY WILLS in to discuss HHC with patient. A list of HHC providers including quality and resource use data and consistent with the patient?s preferred geographical region, medical needs, and insurance network were provided from the [employer] Guide. Patient prefers [facility]. RODDY WILLS discussed requested DME from daughter of rollator and shower chair. RODDY WILLS explained that there would be an upgrade for rollator and insurance would not cover shower chair. Daughter entering room, RODDY WILLS updated [facility] regarding coverage for DME. Daughter states she will purchase of her own. Patient and daughter had no further questions or concerns. RODDY WILLS called and made referral to [facility] and awaiting acceptance. CM will continue to follow this patient and plan for a safe discharge.
--- NOTE | 2023-01-10 15:36 | DS.PCM_ITS ---
Providers Date of Admission: 01/08/23 Date of Discharge: 01/10/23 Primary Care Physician: Dr. Satish Berry MD Reason For Visit: EXPRESSIVE APHASIA Diagnosis Discharge Diagnosis (1) Expressive aphasia: Status: Acute Code(s): R47.01 - Aphasia (2) Fall: Status: Inactive Code(s): W19.XXXA - Unspecified fall, initial encounter Plan #Expressive aphasia, to rule out a stroke * admit to PCU * NIHSS is 0 * does have very mild expressive aphasia * CT of the braion showed no acute intracranial pathology * will order MRI of the brain * CTA of the head and neck showed no hemodynamically signficantly stenosis * keep NPO until she passes speech evaluation * hold BP meds to allow for permissive hypertension in the event of a stroke * consult PT./OT and speech therapy * fall precautions * Aspirin and high intensity statin * Check A1c * #Debility due to mechanical fall: PT.OT on board. Fall precautions #Hypertension: On amlodipine, benazepril and hydrochlorothiazide. We will hold to allow for permissive hypertension. #Type 2 diabetes mellitus: On linagliptin. #GERD: on PPI DVT prophylaxis; SCDs CODE STATUS: Full code * Patient counseled extensively about different types of CODE STATUS including full code, DNR CCA and DNR CCA. Patient elects to be full code. * Total [id number] time 16 minutes. * Total time spent on evaluation and management of patient, reviewing chart and specialist notes, discussing plan with patient and her daughters, discussion with nursing and ancillary staff as well as documentation: 78 mins Medications at Discharge Home Medications amlodipine 5 mg tablet 5 mg PO DAILY 07/15/20 atorvastatin 20 mg tablet 20 mg PO QHS 07/15/20 benazepril 10 mg tablet 10 mg PO DAILY 07/15/20 hydrochlorothiazide 25 mg tablet 25 mg PO DAILY 07/15/20 hydrocodone-acetaminophen 5-325mg 5mg-325mg 1 ea PO TID PRN Pain Score 1-10 07/15/20 linagliptin 5 mg tablet 5 mg PO DAILY 07/15/20 magnesium amino acid chelate 100 mg tablet 100 mg PO QHS 07/15/20 omeprazole 20 mg capsule,delayed release 20 mg PO DAILY 07/15/20 selenium 200 mcg tablet 200 mcg PO DAILY 07/15/20 oseltamivir 30 mg capsule 30 mg PO BID #8 caps 01/10/23 Hospital Course Operations None Summary of Care Provided Minutes Spent on Discharge: 45 Hospital Course: JACOB MCCALL, is a 82 F with a past medical history as outlined who presents via the ED on 01/08/2023 with a complaint of difficulty finding her words and confusion.? Patient states she had a fall about a week ago and was seen in the ED where she had scans done which were negative.? She had also been getting confused over the last few days and had an associated headache.? She also that she was leaning more to the left than the right as well as walking.? She denied any focal weakness or numbness or tingling.? She had had frequency of urination but denied any burning with urination and said the frequency had really gotten bad in the last day or so.? Vitals in the ED with temperature of 91.1 Fahrenheit with pulse rate of 68 and blood pressure of 160/65.? Pulse ox was 95% on room air.? CBC showed WBC of 15 and hemoglobin of 14 with platelets of 306.? Chemistry showed creatinine of 1.04 but was otherwise unremarkable.? Urinalysis showed negative bacteria or WBC and leukocyte esterase.? CT of the brain showed no acute intracranial pathology.? CTA of the head and neck also did not show any hemodynamically significant stenosis.? She was admitted to be managed for acute encephalopathy to rule out a stroke. MRI of the brain done was negative for any evidence of stroke. She did test positive for COVID and influenza and her blood pressure also subsequently became markedly elevated. Patient was refusing was therefore thought to have been possibly also due to hypertensive urgency but this subsequently resolved once her blood pressure medications were resumed. She was placed on Tamiflu. She did not require any oxygen throughout his stay and so was not started on remdesivir or Decadron. His symptoms gradually improved and she felt much better. She did work with physical therapy and did well. She remained stable and was discharged home on 01/10/2023. She is follow- up with her primary care doctor within 1 to 2 weeks. Patient seen and examined prior to discharge. She had no complaints and had an uneventful night. Review of systems otherwise negative. Labs and vitals reviewed. Home medication reviewed and reconciled. Physical Exam Const alert, oriented x3, no apparent distress, average body habitus and healthy appearing General Appearance: cooperative HEENT normocephalic, head/scalp atraumatic, hearing grossly normal bilaterally, moist oral mucous membranes and oropharynx normal Eyes PERRL, EOMs intact bilaterally and conjunctivae normal Neck no lymphadenopathy, supple and no JVD Resp normal respiratory effort, normal air movement, no use of accessory muscles and clear to auscultation bilaterally Cardio regular rate, regular rhythm, S1 normal heart sound, S2 normal heart sound and no murmurs GI normal to inspection, nondistended, normoactive bowel sounds, soft to palpation, non-tender and non-distended Extremity normal to inspection, full ROM and no clubbing, cyanosis or edema Neuro oriented x3, CN's II-XII intact bilaterally, moves all extremities and no focal motor deficits Neuro Narrative: no expressive aphasia Sensorium / Orientation: awake and alert Motor Exam: strength 5/5 throughout Psych thought process normal, cooperative and affect normal Weight / BMI Weight Weight: 190 lb 14.725 oz Body Mass Index (BMI) 31.7 ABG / Lab / Microbiology Data Result Diagrams: 01/10/23 07:25 01/10/23 07:25 Laboratory: Laboratory Results - last 24 hr 01/10/23 07:25: WBC 8.4, RBC 5.42 H, Hgb 13.9, Hct 46.0, MCV 84.9, MCH 25.6 L, MCHC 30.2 L, RDW Std Deviation 44.5 H, RDW Coeff of Raul 14.6, Plt Count 304, MPV 10.6, Immature Gran % (Auto) 0.700, Neut % (Auto) 63.6, Lymph % (Auto) 19.6, Titus % (Auto) 12.8 H, Eos % (Auto) 2.5, Baso % (Auto) 0.8, Absolute Neuts (auto) 5.4, Absolute Lymphs (auto) 1.65, Nucleated RBC % 0 01/10/23 07:25: Sodium 138, Potassium 3.8, Chloride 105, Carbon Dioxide 28.0, An ion Gap 5, BUN 29 H, Creatinine 0.92, Estim Creat Clear Calc 43.15, Est GFR ( MDRD) Af Amer 76, Est GFR (MDRD) Non-Af 62, BUN/Creatinine Ratio 31.6 H, Glucose 172 H, Calcium 9.5 Microbiology: Microbiology 01/08/23 12:08 Urine, Clean Catch Urine Culture - Final Culture exhibits no growth. 01/08/23 12:55 Nasal Secretion SARS-CoV-2 & FLU Antigen (Rapid) - Final Influenzae B SARS-CoV-2 (COVID 19) D/C Instructions Discharge Diet: Low fat / Low cholesterol Discharge Activity: Return to Normal Activity Weight Bearing Status: Weight bearing as tolerated Call your doctor if you observe: Fever of 101 or Higher, Shortness of breath, Dizziness, Swelling in the ankles and Chest pain Meaningful Use Info Meaningful Use Diagnoses (Choose all that apply): None applicable Discharge Plan Admission Admit Date/Time: 01/08/23 12:51 Primary Reason for Your Visit: hypertensive urgency, COVID, influenza Attending Provider: Jennifer Barbosa Primary Care Provider: Satish Berry Discharge Orders/Prescriptions Prescriptions: New oseltamivir 30 mg Capsule 30 mg PO BID Qty: 8 0RF Continued atorvastatin 20 MG tablet 20 mg PO QHS hydrocodone-acetaminophen 1 EACH tablet 1 ea PO TID PRN (Reason: Pain Score 1-10) amlodipine 5 MG tablet 5 mg PO DAILY selenium 200 MCG tablet 200 mcg PO DAILY omeprazole 20 MG capsule,delayed release(DR/EC) 20 mg PO DAILY hydrochlorothiazide 25 MG tablet 25 mg PO DAILY benazepril 10 MG tablet 10 mg PO DAILY magnesium amino acid chelate 100 MG tablet 100 mg PO QHS linagliptin 5 mg tablet 5 mg PO DAILY Label Comments: TAKE 1 (ONE) TABLET ONCE A DAY Referrals / Follow Up: Satish Berry MD [Primary Care Provider] - Within 2 Weeks Disposition Disposition (needs filled in before D/C Order can be placed): Home, Self Care Charges/Coding Visit Charges Inpatient E&M: 06543 Disch Hosp >30min
== END 2023-01-10 17:12 | disposition home or self-care (01) | DRG 91 ==
LOC: ED 12:55 → PCU 13:27
PROVIDERS: Admitting Provider Student in an Organized Health Care Education/Training Program; Emergency Provider Emergency Medicine; PCP Family Medicine; Visit Provider Student in an Organized Health Care Education/Training Program
DX: R47.01 Aphasia (principal); U07.1 COVID-19; G93.40 Encephalopathy, unspecified; E11.9 Type 2 diabetes mellitus without complications; J11.81 Influenza due to unidentified influenza virus with encephalopathy; K21.9 Gastro-esophageal reflux disease without esophagitis; I10 Essential (primary) hypertension; I16.0 Hypertensive urgency; W19.XXXA Unspecified fall, initial encounter; Z79.84 Long term (current) use of oral hypoglycemic drugs; R53.81 Other malaise; Z66 Do not resuscitate
CPT/HCPCS: 36415; 70450; 70496; 70498; 70551; 80048; 80061; 81001; 83735; 84484; 85025; 87086; 87428; 92523; 93005; 97162; 97166; 97530; 97535; 99285; P9612; Q9967

== ENCOUNTER → 2023-02-21 | Outpatient (CLI) | payer MEDICARE, SELFPAY ==
--- NOTE | 2023-02-21 11:41 | RAD_ITS ---
INDICATION: HIP PAIN EXAMINATION/TECHNIQUE: X-RAY - XR Hips Bilateral with Pelvis when performed; 2 Views COMPARISON: None. FINDINGS: Moderate bilateral hip joint space narrowing with mild osteophytic spurring at the base of the femoral heads and of the acetabular rims bilaterally. No fracture. SOFT TISSUES: No soft tissue swelling or gas. RAD/Hips B/L min 2 views w/ Pelvis IMPRESSION: Bilateral hip osteoarthritis. Electronically Signed: Roger Latham MD, NONI at 21:28 EDT ,
== END | disposition home or self-care (01) ==
LOC: MTRAD 11:40
PROVIDERS: PCP Family Medicine; Referring Provider Anesthesiology Pain Medicine; Visit Provider Anesthesiology Pain Medicine
DX: M25.551 Pain in right hip (principal); M25.552 Pain in left hip
CPT/HCPCS: 73521

== ENCOUNTER 2023-03-10 08:01 | Day surgery (SDC) | payer MEDICARE, SELFPAY ==
[2023-03-10 08:23] VITALS: BP 134/59; PULSE 74; RESP 18; TEMP 36.3; O2SAT 100; BMI 31.4
[2023-03-10] MEDS: Lactated Ringers 1,000 ML 15 ML IV (08:33)
[2023-03-10 08:54] LABS: Bedside Glucose 137 mg/dL (74-106)
--- NOTE | 2023-03-10 09:02 | RAD_ITS ---
STUDY: INTRAOPERATIVE FLUOROSCOPY TECHNIQUE: The examination was performed with referring physician in attendance. Under fluoroscopic observation, fluoroscopic images were obtained. Radiologist was not present for the study. Radiologist did not perform the procedure. This dictation is for documentation of the radiation dosage only. There is no interpretation of the images. TOTAL NUMBER OF IMAGES: 1 COMPARISON: None RADIATION DOSE: 0.78 mGy FLUOROSCOPY TIME: 4.7 seconds REASON FOR EXAM: LT HIP INJECTION Female, 82 years old. FINDINGS: Image of the hip. Injection of the hip. RAD/Fluoro Guided Needle Placement IMPRESSION: Fluoroscopic assistance images were obtained. Dictation for documentation purposes only. Electronically Signed: Jeff Cedeño MD at 19:26 EDT ,
--- NOTE | 2023-03-10 09:03 | PCM.OPRPT ---
Report of Operation Date of Procedure: 03/10/23 Description of Surgical Findings:: PREOPERATIVE DIAGNOSIS: Osteoarthritis of the left hip POSTOPERATIVE DIAGNOSIS: Osteoarthritis of the left hip PROCEDURE PERFORMED: Left hip arthrography, left hip intraarticular steroid injection under fluoroscopy guidance. ANESTHESIA: MAC. BLOOD LOSS: Minimal. COMPLICATIONS: None. DESCRIPTION OF PROCEDURE: History and physical of today was reviewed. Risks and benefits of the procedure were explained. The patient understood and agreed to proceed. Informed consent was obtained. IV inserted per routine protocol. The patient was taken to the operating room and placed in the supine position. The left hip area was prepped and draped in a sterile fashion using iodine x3. Under fluoroscopy guidance on AP view, the left hip joint was visualized. The skin and subcutaneous tissue was anesthetized with approximately 3 mL of 1% lidocaine using a 25-gauge regular needle approximately 3 cm cephalad to the left greater trochanter. Under direct visualization with fluoroscopy on an AP view, using a 22-gauge 5-inch spinal needle, the needle was advanced via the skin using the lateral approach. The tip of the needle was maneuvered and directed towards the superiormost aspect of the hip joint. Once the tip of the needle was at the vicinity of the joint, after negative aspiration for blood and positive aspiration of synovial fluid, a total of 5 mL of contrast was injected to confirm correct placement of the needle as well as halo spread around the hip joint. After repeated negative aspiration for blood and confirmation on AP as well as oblique view, a total of 10 mL of preservative-free 0.25% Marcaine with 80 mg of Depo-Medrol was injected easily. The needle was then removed intact. The patient experienced no sign or symptoms of intrathecal or intravascular injection. The patient experienced no paresthesia. The procedure was completed without any apparent difficulty or any complications. The patient appeared to tolerate it well. ASSESSMENT AND PLAN: This is an 82-year-old female with osteoarthritis of the left hip status post left hip arthrography, left hip intra-articular steroid injection under fluoroscopic guidance, patient will continue her current medications, patient will follow in approximately 2 weeks for reevaluation.
[2023-03-10] MEDS: MethylPREDNISolone Acetate 80 MG/ML Vial (09:09)
[2023-03-10] MEDS: Lidocaine 1% (20 ml mdv) 20 ML Vial (09:09)
[2023-03-10 09:20] VITALS: BP 105/80; BP 134/59; PULSE 71; RESP 14; TEMP 36.2; O2SAT 95
[2023-03-10 09:25] VITALS: BP 115/98; BP 134/59; PULSE 73; RESP 16; O2SAT 95
[2023-03-10 09:30] VITALS: BP 120/80; BP 134/59; PULSE 67; RESP 16; O2SAT 97
[2023-03-10 09:35] VITALS: BP 134/59; BP 139/66; PULSE 64; RESP 18; TEMP 36.1; O2SAT 94
[2023-03-10 09:39] VITALS: BP 134/59
== END 2023-03-10 10:06 | disposition home or self-care (01) ==
LOC: SDC 08:01 → AC 08:02
PROVIDERS: PCP Family Medicine; Referring Provider Anesthesiology Pain Medicine; Visit Provider Anesthesiology Pain Medicine
PROC: 3E0U3GC Introduction of Other Therapeutic Substance into Joints, Percutaneous Approach (ICD-10-PCS; CPT 20610; principal; 2023-03-10 09:35)
DX: M16.12 Unilateral primary osteoarthritis, left hip (principal); E11.9 Type 2 diabetes mellitus without complications; E78.5 Hyperlipidemia, unspecified; I10 Essential (primary) hypertension; M54.50 Low back pain, unspecified; Z79.899 Other long term (current) drug therapy; M51.37 Other intervertebral disc degeneration, lumbosacral region
CPT/HCPCS: 20610; 01120; 76000; 77002; 82962; J7120

== ENCOUNTER → 2023-04-17 | Outpatient (CLI) | payer MEDICARE, SELFPAY ==
[2023-04-17 12:35] LABS: Absolute Lymphocyte Count 1.38 X10^3/uL (0.83-4.51); Absolute Neutrophil Count 6.8 X10^3/uL (2.0-7.7); Basophil# 0.06 X10^3/uL; Basophil% 0.6 % (0-1); Eosinophil# 0.17 X10^3/uL; Eosinophils% 1.8 % (0-5); Hematocrit 40.5 % (37-47); Hemoglobin 12.2 g/dL (12.0-15.0); Lymphocyte # 1.38 X10^3/ul (0.83-4.51); Lymphocyte % 14.8 % (19-41); Mean Corp Hgb Conc 30.1 g/dL (32-36); Mean Corpuscular Hgb 26.1 pg (27.0-32.0); Mean Corpuscular Volume 86.5 fL (81-99); Mean Platelet Vol. 10.7 fl (6.2-12.0); Monocyte# 0.84 X10^3/uL; NRBC Flagged by Analyzer 0 % (0-5); Neutrophil # 6.83 X10^3/uL (2.7-7.7); Neutrophil % 73.2 % (47-70); Platelet Count 296 K/mm3 (150-450); RBC Distribution Width CV 16.9 % (11.6-14.6); RBC Distribution Width SD 53.1 fl (35.1-43.9); Red Blood Count 4.68 M/mm3 (4.2-5.4); White Blood Count 9.3 K/mm3 (4.4-11.0)
[2023-04-17 12:46] LABS: Vitamin D,25 Hydroxy 84.1 ng/mL
[2023-04-17 13:10] LABS: ALB/GLOB Ratio 0.8 RATIO (0.9-2.4); AST(SGOT) 16 U/L (15-37); Alanine Aminotransfer ALT/SGPT 16 U/L (13-56); Albumin, Serum 3.1 g/dL (3.2-5.0); Alkaline Phosphatase 67 U/L (45-117); Anion Gap 6 (5-15); BUN 32 mg/dL (7-18); BUN/Creat Ratio 29.4 RATIO (10-20); Calcium,Total 9.2 mg/dL (8.5-10.1); Chloride 108 mmol/L (98-107); Cholesterol 139 mg/dL (200); Creatinine, Serum 1.09 mg/dL (0.55-1.02); EST Glomerular Filtration Rate 51 mL/min (>60); Est Glom Filt Rate - Afr Amer 62 mL/min (>60); Globulin 3.9 g/dL (2.2-4.2); Glucose 126 mg/dL (74-106); High Density Lipoprotein 45 mg/dL; Potassium 3.9 mmol/L (3.5-5.1); Sodium Level 143 mmol/L (136-145); Triglycerides 133 mg/dL; Very Low Density Lipoprotein 27 mg/dL (5-40)
[2023-04-17 13:25] LABS: Hemoglobin A1c 6.5 % (3.8-5.6)
== END | disposition home or self-care (01) ==
LOC: MFPLAB 09:56
PROVIDERS: PCP Family Medicine; Visit Provider Family Medicine
DX: E11.9 Type 2 diabetes mellitus without complications (principal); E55.9 Vitamin D deficiency, unspecified
CPT/HCPCS: 36415; 80053; 80061; 82306; 83036; 85025

== ENCOUNTER 2023-04-21 11:02 | Day surgery (SDC) | payer MEDICARE, SELFPAY ==
[2023-04-21] VITALS (7 sets, daily range): BP systolic 110–142; BP diastolic 57–69; PULSE 61–66; RESP 16–93; TEMP 36.8–37.1; O2SAT 18–95; BMI 34.2
--- NOTE | 2023-04-21 11:50 | RAD_ITS ---
STUDY: X-RAY - PELVIS AND RIGHT HIP REASON FOR EXAM: Female, 83 years old. Intraprocedural documentation images of the injection. TECHNIQUE: 2 intraprocedural digital views of the pelvis and hip. COMPARISON: Pelvis and bilateral hip x-rays dated February 21, 2023. FINDINGS: 2 intraprocedural documentation images show needle from a lateral approach terminating near the lateral aspect of the right femoral head with contrast located within the joint. RAD/Fluoro Guided Needle Placement IMPRESSION: Intraprocedural documentation images. Electronically Signed: Norm Scott MD at 14:55 EDT ,
[2023-04-21] MEDS: Lactated Ringers 1,000 ML 15 ML IV (12:28)
[2023-04-21] MEDS: Lidocaine 1% (30 ml sdv) 30 ML Vial (12:43)
[2023-04-21] MEDS: MethylPREDNISolone Acetate 80 MG/ML Vial (12:43)
--- NOTE | 2023-04-21 12:46 | PCM.OPRPT ---
Report of Operation Date of Procedure: 04/21/23 Description of Surgical Findings:: PREOPERATIVE DIAGNOSIS: Osteoarthritis of the right hip POSTOPERATIVE DIAGNOSIS: Osteoarthritis of the right hip PROCEDURE PERFORMED: Right hip intraarticular steroid injection under fluoroscopy guidance. ANESTHESIA: MAC. BLOOD LOSS: Minimal. COMPLICATIONS: None. DESCRIPTION OF PROCEDURE: History and physical of today was reviewed. Risks and benefits of the procedure were explained. The patient understood and agreed to proceed. Informed consent was obtained. IV inserted per routine protocol. The patient was taken to the operating room and placed in the supine position. The right hip area was prepped and draped in a sterile fashion using iodine x3. Under fluoroscopy guidance on AP view, the right hip joint was visualized. The skin and subcutaneous tissue was anesthetized with approximately 3 mL of 1% lidocaine using a 25-gauge regular needle approximately 3 cm cephalad to the right greater trochanter. Under direct visualization with fluoroscopy on an AP view, using a 22-gauge 5-inch spinal needle, the needle was advanced via the skin using the lateral approach. The tip of the needle was maneuvered and directed towards the superiormost aspect of the hip joint. Once the tip of the needle was at the vicinity of the joint, after negative aspiration for blood and positive aspiration of synovial fluid, a total of 3 mL of contrast was injected to confirm correct placement of the needle as well as halo spread around the hip joint. After repeated negative aspiration for blood and confirmation on AP as well as oblique view, a total of 10 mL of preservative-free 0.25% Marcaine with 80 mg of Depo-Medrol was injected easily. The needle was then removed intact. The patient experienced no sign or symptoms of intrathecal or intravascular injection. The patient experienced no paresthesia. The procedure was completed without any apparent difficulty or any complications. The patient appeared to tolerate it well. ASSESSMENT AND PLAN: This is an 83-year-old female with osteoarthritis of the right hip status post right hip arthrography, left hip intra-articular steroid injection under fluoroscopic guidance, patient will continue her current medications, patient will follow in approximately 2 weeks for reevaluation.
[2023-04-21 13:18] LABS: Bedside Glucose 127 mg/dL (74-106)
== END 2023-04-21 13:42 | disposition home or self-care (01) ==
LOC: SDC 11:02 → AC 11:36
PROVIDERS: PCP Family Medicine; Referring Provider Anesthesiology Pain Medicine; Visit Provider Anesthesiology Pain Medicine
PROC: 3E0U3GC Introduction of Other Therapeutic Substance into Joints, Percutaneous Approach (ICD-10-PCS; CPT 20610; principal; 2023-04-21 12:45)
DX: M16.11 Unilateral primary osteoarthritis, right hip (principal); E11.9 Type 2 diabetes mellitus without complications; E78.5 Hyperlipidemia, unspecified; I12.9 Hypertensive chronic kidney disease with stage 1 through stage 4 chronic kidney disease, or unspecified chronic kidney disease; N18.9 Chronic kidney disease, unspecified; M51.37 Other intervertebral disc degeneration, lumbosacral region; Z79.899 Other long term (current) drug therapy; M54.50 Low back pain, unspecified
CPT/HCPCS: 20610; 01991; 76000; 77002; 82962; J7120

== ENCOUNTER → 2023-06-17 | Outpatient (CLI) | payer MEDICARE, SELFPAY ==
[2023-06-17 11:15] LABS: Bacteria 0 SEEN /hpf (None Seen); Mucous, Urine 0 SEEN /hpf (<or=2+); Red Blood Cells-Urine 0 SEEN /hpf (0-5)
[2023-06-17 12:07] LABS: Absolute Lymphocyte Count 1.62 X10^3/uL (0.83-4.51); Absolute Neutrophil Count 6.6 X10^3/uL (2.0-7.7); Basophil# 0.06 X10^3/uL; Basophil% 0.6 % (0-1); Eosinophil# 0.15 X10^3/uL; Eosinophils% 1.6 % (0-5); Hematocrit 43.7 % (37-47); Hemoglobin 12.9 g/dL (12.0-15.0); Lymphocyte # 1.62 X10^3/ul (0.83-4.51); Lymphocyte % 17.2 % (19-41); Mean Corp Hgb Conc 29.5 g/dL (32-36); Mean Corpuscular Hgb 25.7 pg (27.0-32.0); Mean Corpuscular Volume 87.2 fL (81-99); Mean Platelet Vol. 11.1 fl (6.2-12.0); Monocyte# 0.89 X10^3/uL; Monocyte% 9.5 % (0-10); NRBC Flagged by Analyzer 0 % (0-5); Neutrophil # 6.64 X10^3/uL (2.7-7.7); Neutrophil % 70.6 % (47-70); Platelet Count 302 K/mm3 (150-450); RBC Distribution Width CV 15.3 % (11.6-14.6); RBC Distribution Width SD 48.7 fl (35.1-43.9); Red Blood Count 5.01 M/mm3 (4.2-5.4); White Blood Count 9.4 K/mm3 (4.4-11.0)
[2023-06-17 12:13] LABS: Color, Urine Straw (Yellow); Glucose, Dipstick 1000 mg/dl (Normal); Ketone-Dipstick Negative (Negative); Leukocyte Esterase-Dipstick 100 /ul (Negative); Nitrite-Dipstick Negative (Negative); Occult Blood-Urine Negative /ul (Negative); Protein-Dipstick Negative (Negative); Urine Bilirubin Dipstick Negative (Negative); Urine Clarity Clear (Clear); Urine Urobilinogen Normal (Normal)
[2023-06-17 12:21] LABS: Squamous Epithelial Cells - UA 0-5 SEEN /hpf (5-10); White Blood Cells 0-5 SEEN /hpf (0-5)
[2023-06-17 12:29] LABS: ALB/GLOB Ratio 0.9 RATIO (0.9-2.4); AST(SGOT) 18 U/L (15-37); Alanine Aminotransfer ALT/SGPT 19 U/L (13-56); Albumin, Serum 3.5 g/dL (3.2-5.0); Alkaline Phosphatase 65 U/L (45-117); Anion Gap 7 (5-15); BUN 30 mg/dL (7-18); BUN/Creat Ratio 23.6 RATIO (10-20); Calcium,Total 9.4 mg/dL (8.5-10.1); Chloride 106 mmol/L (98-107); Creatinine, Serum 1.27 mg/dL (0.55-1.02); EST Glomerular Filtration Rate 43 mL/min (>60); Est Glom Filt Rate - Afr Amer 52 mL/min (>60); Globulin 3.9 g/dL (2.2-4.2); Glucose 138 mg/dL (74-106); Potassium 3.9 mmol/L (3.5-5.1); Protein, Total 7.4 g/dL (6.4-8.2); Sodium Level 141 mmol/L (136-145)
== END | disposition home or self-care (01) ==
LOC: MFPLAB 11:14
PROVIDERS: PCP Family Medicine; Visit Provider Family Medicine
DX: R32 Unspecified urinary incontinence (principal)
CPT/HCPCS: 36415; 80053; 81001; 85025; 87077; 87086; 87088; 87186

== ENCOUNTER → 2023-06-25 | Outpatient (CLI) | payer MEDICARE, SELFPAY | END | disposition home or self-care (01) | LOC: LABSPEC 14:33 | PROVIDERS: PCP Family Medicine; Visit Provider Family Medicine | DX: N39.0 Urinary tract infection, site not specified (principal) | CPT/HCPCS: 87086 ==

== ENCOUNTER → 2023-08-26 | Outpatient (CLI) | payer MEDICARE, SELFPAY ==
[2023-08-26 12:23] LABS: Absolute Lymphocyte Count 1.51 X10^3/uL (0.83-4.51); Absolute Neutrophil Count 6.2 X10^3/uL (2.0-7.7); Basophil# 0.07 X10^3/uL; Basophil% 0.8 % (0-1); Eosinophil# 0.09 X10^3/uL; Hematocrit 43.6 % (37-47); Hemoglobin 12.7 g/dL (12.0-15.0); Lymphocyte # 1.51 X10^3/ul (0.83-4.51); Lymphocyte % 17.5 % (19-41); Mean Corp Hgb Conc 29.1 g/dL (32-36); Mean Corpuscular Hgb 24.7 pg (27.0-32.0); Mean Corpuscular Volume 84.7 fL (81-99); Mean Platelet Vol. 10.8 fl (6.2-12.0); Monocyte# 0.74 X10^3/uL; Monocyte% 8.6 % (0-10); NRBC Flagged by Analyzer 0 % (0-5); Neutrophil % 71.6 % (47-70); Platelet Count 309 K/mm3 (150-450); RBC Distribution Width CV 15.9 % (11.6-14.6); RBC Distribution Width SD 48.4 fl (35.1-43.9); Red Blood Count 5.15 M/mm3 (4.2-5.4); White Blood Count 8.7 K/mm3 (4.4-11.0)
[2023-08-26 12:48] LABS: Vitamin D,25 Hydroxy 88.4 ng/mL
[2023-08-26 12:58] LABS: ALB/GLOB Ratio 1.1 RATIO (0.9-2.4); AST(SGOT) 17 U/L (15-37); Alanine Aminotransfer ALT/SGPT 22 U/L (13-56); Albumin, Serum 3.5 g/dL (3.2-5.0); Alkaline Phosphatase 57 U/L (45-117); Anion Gap 7 (5-15); BUN 24 mg/dL (7-18); BUN/Creat Ratio 24.1 RATIO (10-20); Calcium,Total 9.1 mg/dL (8.5-10.1); Chloride 107 mmol/L (98-107); Cholesterol 147 mg/dL (200); EST Glomerular Filtration Rate 57 mL/min (>60); Est Glom Filt Rate - Afr Amer 69 mL/min (>60); Globulin 3.3 g/dL (2.2-4.2); Glucose 107 mg/dL (74-106); High Density Lipoprotein 51 mg/dL; Phosphorus 3.5 mg/dL (2.5-4.9); Potassium 4.2 mmol/L (3.5-5.1); Protein, Total 6.8 g/dL (6.4-8.2); Sodium Level 141 mmol/L (136-145); Triglycerides 139 mg/dL; Very Low Density Lipoprotein 28 mg/dL (5-40)
[2023-08-26 13:19] LABS: Hemoglobin A1c 6.5 % (3.8-5.6)
== END | disposition home or self-care (01) ==
LOC: MFPLAB 11:03
PROVIDERS: PCP Family Medicine; Visit Provider Family Medicine
DX: E11.69 Type 2 diabetes mellitus with other specified complication (principal); E11.59 Type 2 diabetes mellitus with other circulatory complications
CPT/HCPCS: 36415; 80053; 80061; 82306; 83036; 84100; 85025

== ENCOUNTER 2023-09-11 10:30 | Outpatient (RCR) | payer MEDICARE, SELFPAY ==
--- NOTE | 2023-07-09 10:21 | HP.PTEVAL ---
Patient's Visit Information Visit Information Visit Information: JACOB MCCALL is a 83 year old F referred to Physical Therapy by Dr. Satish Berry MD with a diagnosis of LOB, debility, vertigo. Date of Evaluation: 07/09/23 Physical Therapist: Jim Garrison, DPT, OCS, CSCS Visit Plan Frequency: 2x /Week Duration: 4-6 Weeks Plan: 2x/week for 4-6 weeks, please starat and get I qucikly on LE strength, band postural strength and then continue to work on gait distance, confidence and balance with weight shifts and stepping Subjective Subjective: Dr. Berry said she needs to get moving. Had UTI 06/14/23 and antibiotic cleared it up. Those make her crazy. Not loopy anymore. I have no pep though. still feels uneasy on feet. Balance and get up and go worse over the last month. Was OK prior to that. Using wh walker since UTI but did not need it prior. Lived with dtr for a while earlier int he year after another UTI. Now lives alone on first floor and does what she can at home. Not able to drive currently. Can't get out to pa as it is hard to bend and stand up. Basic ADLs and shower getting done slowly. Has walk in shower. Has a ramp sidewalk to get in. Spends day currently watching TV. Has some walking that she tries to do on cement pad 3x/day. Sleep is OK. had a fall on 06/14 when she had her UTI, not since. Was using a cane at the time. Has call button now. Not complaining of dizzyness except sometimes when firsst gets up. Pain LBP: Pain Intensity (Out of 10): Unrated Comment: chronic sciatica Objective Objective: A& O x3 today. Walks with rollator walker slightly hunched back to PT mod I but slow and stays far away from walker until cued, hesitant to take long steps. can walk without aD for FGa today but very short hesitant steps. Stairs are two rails and pulling very weak in LE but reciprocal without pain. Transfer are I without UE today chair . LE AROM WFL sensation is WNL to gross light touch. reflexes 2/3 patella and achilles Strength hips 3/5, knee flexion and extension 3+/5, ankles 4-/5. R UE limited elevation at shoulder and hesitant actively but aarom is full and painfree. No dizzyness ellicited today with head movements or position changes, pt presents as more poor confidence from [place] lying on the floor for hours. Balance/Special Test Scores Functional Gait Assessment Score: 21 % Disability: 30.0000 Dizziness Score: 52 TUG Test Time Seconds: 22 30 Second Chair Rise Test Seconds: 9 Goals Goal 1:: TUG 18 or better and 30 sec sit to stand 11 to show improved strength adn mobility Goal Time Frame: 4-6 Weeks Goal 2:: FGA 23/30 for improved balance and confidence Goal Time Frame: 4-6 Weeks Goal 3:: Pt feel 75% back to baseline activity and energy Goal Time Frame: 4-6 Weeks Goal 4:: I appropriate HEP to limit future problem Goal Time Frame: 4-6 Weeks Rehabilitation Potential Physical Therapy Diagnosis: imbalance, loss of confidence and strength limiting funciton and quality of life. Rehabilitation Potential: Fair Anticipated Interventions Patient/Client Instruction: Educate patient on: Condition, Plan of Care and Risk Factors For the Purpose of:: To improve gait and locomotor functions and To improve safety with gait Therapeutic Exercise to Include: Strength training, Balance training, Coordination, Flexibilty training, Gait and locomotor training, Passive ROM and Active ROM For the Purpose of:: To increase ROM, To improve nutrient delivery to tissue, To increase oxygenation perfusion, To improve muscle performance and motor function, To improve ability to perform ADL's, To improve ability of physical actions for home/community/work/leisure and To improve safety Text: Thank you for the opportunity to evaluate your patient. For Medicare and Medicare HMO plans, please review the plan of care and approve it. It will need to be FAXED BACK to us at [phone] for Medicare purposes. For Medicare only, by signing this I certify the plan of care. Please let me know if there are questions or concerns regarding this plan of care. Physician Signature: Date:
--- NOTE | 2023-09-11 11:25 | HP.PTDCSUM_ITS ---
Discharge Summary D/C summary: It has been my pleasure to treat JACOB MCCALL referred by Dr. Satish Berry MD, with the diagnosis of LOB, debility, vertigo for a total of 12 visit(s). Discharge Date: 09/11/23 Please see the following information for a summary of their discharge status. Subjective Subjective: I am doing pretty good. Saw Dr. Mast and thinks she is doing well. 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 Otherwise getting around well. Using wh walker away from home. No AD needed int he house. No falls. Feels pretty steady, getting stronger. L hip can hurt at times, feels like it might give although it never does. Doing exercises at home 1-2x/day. Pain LBP: Pain Intensity (Out of 10): 0 L hip: Pain Intensity (Out of 10): 2 Overall Improvement % Improvement: 90 Objective Objective/Function: Walks with L antalgia and very tender to touch L GT area. Improved in TUG adn 30 sec STS today and feeling good overall. Will cotninue at home vs more therapy. Goals Goal 1:: TUG 18 or better and 30 sec sit to stand 11 to show improved strength adn mobility Goal Progress: Goal Met Goal 2:: FGA for improved balance and confidence Goal Progress: Goal Met Goal 3:: Pt feel 75% back to baseline activity and energy Goal Progress: Goal Met Goal 4:: I appropriate HEP to limit future problem Goal Progress: Goal Met Plan Plan: d/c to HEP D/C Information Discharge Comments: pt to cotninue via HEP, may contact doctor regarding hip pain L(GT bursitis vs OA) d/c sentence: If there are questions or concerns regarding this patient's physical therapy, please feel free to call me at [phone]. Thank you for the referral of this patient. Sincerely, Jim Garrison, DPT, OCS, CSCS Balance/Gait/Functional tests Balance/Special Test Scores Functional Gait Assessment Score: 23 % Disability: 23.3400 Dizziness Score: 22 TUG Test Time Seconds: 17 Tug Test: <20 sec.=mostly independent 30 Second Chair Rise Test Seconds: 11 Improvement % Improvement: 90
== END 2023-09-11 19:00 | disposition home or self-care (01) ==
LOC: PT 10:30
PROVIDERS: PCP Family Medicine; Referring Provider Family Medicine; Visit Provider Family Medicine
DX: R42 Dizziness and giddiness (principal); R26.81 Unsteadiness on feet
CPT/HCPCS: 97110; 97162; 97164; 97530

== ENCOUNTER → 2023-11-26 | Outpatient (CLI) | payer MEDICARE, SELFPAY ==
--- OUTSIDE RECORDS SUMMARY | 2023-11-26 09:34 | XMS RPT_ITS | CCD ---
Author Name Unknown Address [address] [place] [address] Organization [facility] Care Team Providers Care Cooperative Manager Name Role Phone Prince Otero Primary Care Provider Allergies Allergy Classification Reported Allergen(s) Allergy Type Date of Onset Reaction(s) Facility (2 sources) Penicillins Propensity to adverse reactions 5 [facility] (2 sources) Sulfonamides (Antibiotic) Propensity to adverse reactions 5 [facility] Medications Completed/Discontinued Medications Medication Drug Class(es) Dates Sig (Normalized) Sig (Original) acetaminophen 500 mg oral tablet (2 sources) Start: 08-13-2005 TYLENOL EXTRA STRENGTH 500 MG TAB Take two(2) tablets every four(4) to six(6) hours as needed. 0 08/13/2005 Active Problems Problem Classification Problem Date Documented Da te Episodic/Chronic Diverticulosis and diverticulitis (2 sources) Diverticulosis of colon; Translations: [Diverticulosis of colon (without mention of hemorrhage)] 09-16-2005 Hemorrhoids (2 sources) Internal hemorrhoids; Translations: [Internal hemorrhoids without mention of complication] 09-16-2005 Episodic Other gastrointestinal disorders (2 sources) Feces contents abnormal; Translations: [Nonspecific abnormal finding in stool contents] 09-16-2005 Episodic Unclassified (1 source) Patient encounter status; Translations: [Pre-op testing] Results Test Name Value Interpretation Reference Range Facil ity Encounters Encounter Date Encounter Type Care Provider Facility Start: 05-19-2020 End: 05-19-2020 Documentation procedure External Provider [facility] Start: 05-19-2020 End: 05-19-2020 Orders Only Jodi Nicholas (Pa) Work Phone: Compufirst Department Plan of Treatment Date Care Activity Detail Author Start: 06-06-2020 Influenza vaccination INFLUENZA (#1) [facility] Start: 2006 ADVANCE DIRECTIVE DISCUSSION ADVANCE DIRECTIVE DISCUSSION [facility] Start: 2006 BONE DENSITY BONE DENSITY [facility] Start: 2006 PNEUMOVAX AGE 65 AND OVER WITH 5YR LOOKBACK (#1) PNEUMOVAX AGE 65 AND OVER WITH 5YR LOOKBACK (#1) [facility] Start: 1991 SHINGRIX VACCINE (1 of 2) SHINGRIX V ACCINE (1 of 2) [facility] Start: 1991 Tuberculosis screening COLOREC SAMIRA CANCER SCREENING,SEE MODIFIER [facility] Start: 1986 DIABETES SCREEN DIABETES SCREEN [facility] Start: 1986 LIPID SCREEN LIPID SCREEN [facility] Start: 1960 Urine microalbumin profile DTAP,TDAP,TD (1 - Tdap) [facility] End: 05-19-2021 PRE-PROCEDURE & PRE-OPERATIVE COVID PRE-PROCEDURE & PRE-OPERATIVE COVID Microbiology Routine Pre-op testing 1 Occurrences starting 05/19/2020 until 05/19/2021 [facility] Immunizations Immunization Date Immunization Notes Care Provider Tee may 08-13-2005 influenza virus vacc ine, unspecified formulation External Provider [facility] Payers Date Payer Category Payer Medicare [employer] [place] [id number] 2019-Present HMO [id number] Social History Date Type Detail Facility [facility]: [facility]-16-2005 [facility] Start: 09-16-2005 Alcohol intake Current drinke r of alcohol (finding) [facility] Sex Assigned At Not on file [facility] Clinical Note 11-09-2020 Note Date & Type Note Facility 11-09-2020 Note Patient Outreach ([facility]) JACOB MCCALL ([id number]) 1940 F Date Time Provider Department 11/09/20 MIGUEL ANGEL MELGOZA During your visit today, we recorded the following information about you: Allergies As of Date: 11/09/2020 Noted Allergy Reaction PENICILLINS 08/13/2005 SULFA (SULFONAMIDE ANTIBIOTICS) 08/13/2005 Date Reviewed: 06/09/2020 Reviewed by: Janki (Roddy) RODDY Hernandez - Fully Assessed Order(s):SARS-COVID VACCINE 1ST DOSE APPT [[id number]] Order #: [id number] FUTURE Prescriptions as of 11/09/2020 Sig: HYDROCHLOROTHIAZIDE 25 MG TAB* Take 25 mg by mouth once lenny* AMLODIPINE 5 MG TABLET Take 5 mg by mouth once daily. TRADJENTA 5 MG TABLET Take 5 mg by mouth once daily. MELATONIN ORAL Take 10 mg by mouth daily at * BENAZEPRIL 40 MG TABLET Take 40 mg by mouth once lenny* ATORVASTATIN 20 MG TABLET Take 20 mg by mouth daily at * CHOLECALCIFEROL (VITAMIN D3) * Take 4,000 Units by mouth onc* METFORMIN 1,000 MG TABLET Take 1,000 mg by mouth twice * NABUMETONE 500 MG TABLET Take 500 mg by mouth once juan* CENTRUM SILVER TABLET Take one(1) tablet daily. LOTREL 5 MG-10 MG CAPSULE Take one(1) tablet daily. DAYPRO 600 MG TABLET Take one(1) tablet two(2) alvaro* PREVACID 15 MG CAPSULE,DELAYE* Take one(1) capsule daily. PLAQUENIL 200 MG TABLET Take one(1) tablet two(2) alvaro* VITAMIN C 500 MG TABLET Take one(1) tablet four (4) t* TYLENOL EXTRA STRENGTH 500 MG* Take two(2) tablets every fou* * ZETIA 10 MG TABLET Take one(1) tablet daily. * FLONASE 50 MCG/ACTUATION [employer]* one (1) puffeach nostril bid * DYAZIDE 37.5 MG-25 MG CAPSULE Take one (1) capsule daily. Problem List As Of Date 11/09/2020 Noted Resolved DIVERTICULOSIS OF COLON W/O BLEED [K57.30] INT HEMORRHOID W/O COMPL [K64.8] ABN FIND-STOOL CONTENTS-OCC BLOOD [R19.5] More... HTN (hypertension) [I10] 06/09/2020 DM2 (diabetes mellitus, type 2) (HCC) [E11.9] 06/09/2020 HLD (hyperlipidemia) [E78.5] 06/09/2020 GERD (gastroesophageal reflux disease) [K21.9] 06/09/2020 OA (osteoarthritis) [M19.90] 06/09/2020 Dermatochalasis of left upper eyelid [H02.834] 06/09/2020 06/09/2020 Dermatochalasis of right upper eyelid [H02.831] 06/09/2020 06/09/2020 Letter Text Encounter Status:Closed by EPIC, PRODUSER on 11/13/20 [facility] Assessments Diagnosis Pre-op testing- Primary Preoperative examination, unspecified Dermatochalasis of left upper eyelid Dermatochalasis Dermatochalasis of right upper eyelid Dermatochalasis Summary Purpose Family History No Family History Records FoundNo Family History Records Found Advance Directives No Advanced Directives Records FoundNo Advanced Directives Records Found Additional Source Comments Source Comments (unrecognize d section and content) In the event this informatio n is protected by the Federal Confidentiality of Alcohol and Drug Abuse Patient Records regulations: The Federal rules restrict any use of the information to criminally investigate or prosecute any alcohol or drug abuse patient.[facility] the event this information is protected by the Federal Confidentiality of Alcohol and Drug Abuse Patient Records regulations: The Federal rules restrict any use of the information to criminally investigate or prosecute any alcohol or drug abuse patient.[facility] INFORMATION SOURCE (unrecogn ized section and content) DATE CREATED AUTHOR AUTHOR'S SHEILA MORROW 09/23/2021 [facility] FOR RECORDS PERTAINING TO PATIENTS WHO ARE OR HAVE BEEN ENROLLED IN A CHEMICAL DEPENDENCY/SUBSTANCEABUSE PROGRAM, SOME INFORMATION MAY BE OMITTED. This clinical summary was aggregated from multiple sources. Caution should be exercised in using it in the provision of clinical care. This summary normalizes information from multiple sources, and as a consequence, information in this document may materially change the coding, format and clinical context of patient data. In addition, data may be omitted in some cases. CLINICAL DECISIONS SHOULD BE BASED ON THE PRIMARY CLINICAL RECORDS. [facility]. provides no warranty or guarantee of the accuracy or completeness of information in this document.
[2023-11-26 10:05] LABS: Absolute Lymphocyte Count 1.24 X10^3/uL (0.83-4.51); Absolute Neutrophil Count 5.2 X10^3/uL (2.0-7.7); Basophil# 0.06 X10^3/uL; Basophil% 0.8 % (0-1); Eosinophil# 0.13 X10^3/uL; Eosinophils% 1.8 % (0-5); Hematocrit 43.1 % (37-47); Hemoglobin 12.7 g/dL (12.0-15.0); Lymphocyte # 1.24 X10^3/ul (0.83-4.51); Lymphocyte % 16.7 % (19-41); Mean Corp Hgb Conc 29.5 g/dL (32-36); Mean Corpuscular Hgb 24.6 pg (27.0-32.0); Mean Corpuscular Volume 83.4 fL (81-99); Mean Platelet Vol. 10.6 fl (6.2-12.0); Monocyte# 0.74 X10^3/uL; NRBC Flagged by Analyzer 0 % (0-5); Neutrophil # 5.22 X10^3/uL (2.7-7.7); Neutrophil % 70.3 % (47-70); Platelet Count 311 K/mm3 (150-450); RBC Distribution Width CV 15.3 % (11.6-14.6); RBC Distribution Width SD 46.2 fl (35.1-43.9); Red Blood Count 5.17 M/mm3 (4.2-5.4); White Blood Count 7.4 K/mm3 (4.4-11.0)
[2023-11-26 10:33] LABS: Hemoglobin A1c 6.5 % (3.8-5.6)
[2023-11-26 10:36] LABS: Vitamin D,25 Hydroxy 78.5 ng/mL
[2023-11-26 10:56] LABS: AST(SGOT) 13 U/L (15-37); Alanine Aminotransfer ALT/SGPT 14 U/L (13-56); Albumin, Serum 3.5 g/dL (3.2-5.0); Alkaline Phosphatase 66 U/L (45-117); Anion Gap 5 (5-15); BUN 23 mg/dL (7-18); BUN/Creat Ratio 24.7 RATIO (10-20); Calcium,Total 9.5 mg/dL (8.5-10.1); Chloride 106 mmol/L (98-107); Cholesterol 140 mg/dL (200); Creatinine, Serum 0.93 mg/dL (0.55-1.02); EST Glomerular Filtration Rate 61 mL/min (>60); Est Glom Filt Rate - Afr Amer 74 mL/min (>60); Globulin 3.4 g/dL (2.2-4.2); Glucose 135 mg/dL (74-106); High Density Lipoprotein 44 mg/dL; Phosphorus 3.5 mg/dL (2.5-4.9); Protein, Total 6.9 g/dL (6.4-8.2); Sodium Level 141 mmol/L (136-145); Triglycerides 164 mg/dL; Very Low Density Lipoprotein 33 mg/dL (5-40)
[2023-11-26 15:27] LABS: Protein, Urine (Random) 13.1 mg/dL (<11.9); Protein:Creat Ratio 300 mg/g CRE (0-200)
== END | disposition home or self-care (01) ==
LOC: MFPLAB 09:01
PROVIDERS: PCP Family Medicine; Visit Provider Family Medicine
DX: E11.22 Type 2 diabetes mellitus with diabetic chronic kidney disease (principal); E55.9 Vitamin D deficiency, unspecified
CPT/HCPCS: 36415; 80053; 80061; 82306; 82570; 83036; 84100; 84156; 85025

== ENCOUNTER → 2023-12-24 | Outpatient (CLI) | payer MEDICARE, SELFPAY ==
--- NOTE | 2023-12-24 08:52 | RAD_ITS ---
INDICATION: LUMBAR RADICULOPATHY EXAMINATION/TECHNIQUE: X-RAY - XR Spine Lumbar Min 4 Views COMPARISON: Prior study dated: 08/07/2021 FINDINGS: VERTEBRAE: Mild anterior wedging and decreased height of L1 vertebra new since previous exam. The remainder of the vertebral heights are within normal limits. Mild anterolisthesis of L4 over L5. Preservation of the normal lumbar lordosis. Degenerative changes of the facet joints at the lower lumbar spine DISCS: Multilevel disc space narrowing and endplate spondylosis unchanged. INCLUDED ABDOMEN: Atherosclerotic calcifications of the abdominal aorta. RAD/L/S Spine Min 4 Views IMPRESSION: 1. Mild anterior wedging of L1 vertebra could be chronic but new since previous exam. 2. Multilevel degenerative changes unchanged. Electronically Signed: Franco Sandy MD at 10:44 EDT ,
--- NOTE | 2023-12-24 08:52 | RAD_ITS ---
INDICATION: PAIN EXAMINATION/TECHNIQUE: X-RAY - RIGHT XR Knee Complete 4 Views or More 4 VIEWS COMPARISON: No relevant prior comparison study available FINDINGS: SOFT TISSUES: No soft tissue swelling or gas. Vascular calcifications. BONES/JOINTS: No evidence of acute fracture or dislocation. No evidence of joint effusion. Right knee arthroplasty. Alignment appears unremarkable. No sclerotic or destructive changes observed. RAD/Knee 4 or More Views IMPRESSION: 1. Right knee arthroplasty. 2. No demonstrated acute osseous changes. Electronically Signed: Franco Sandy MD at 10:49 EDT ,
--- NOTE | 2023-12-24 08:52 | RAD_ITS ---
INDICATION: PAIN EXAMINATION/TECHNIQUE: X-RAY - LEFT XR Knee Complete 4 Views or More 4 VIEWS COMPARISON: No relevant prior comparison study available FINDINGS: SOFT TISSUES: No soft tissue swelling or gas. Vascular calcifications. BONES/JOINTS: No evidence of acute fracture or dislocation. No evidence of joint effusion. Status post left knee arthroplasty with satisfactory alignment. No sclerotic or destructive changes observed. RAD/Knee 4 or More Views IMPRESSION: 1. Status post left knee arthroplasty. 2. No demonstrated acute changes. Electronically Signed: Franco Sandy MD at 10:54 EDT ,
--- NOTE | 2023-12-24 09:00 | RAD_ITS ---
INDICATION: OSTEOARTHRITIS EXAMINATION/TECHNIQUE: X-RAY - XR Hips Bilateral with Pelvis when performed; 2 Views COMPARISON: Prior study dated: 02/21/2023 FINDINGS: PELVIC BONES: No displaced fracture, destructive or sclerotic lesions. Note that overlapping bowel shadows may however obscure fine detail. Sacroiliac joints are unremarkable. No widening of the pubic symphysis. HIPS: Mild to moderate narrowing of the right hip joint with marginal degenerative spurs unchanged prior exam. Severe narrowing of the left hip joint with sclerosis of the articular margins and marginal degenerative spurs markedly worse than the previous exam. No displaced fracture seen in this frontal view. SOFT TISSUES: No soft tissue swelling or gas. RAD/Hips B/L min 2 views w/ Pelvis IMPRESSION: 1. Severe osteoarthritis of the left hip markedly worse than the previous exam. 2. Moderate osteoarthritis of the right hip unchanged. Electronically Signed: Franco Sandy MD at 10:47 EDT ,
== END | disposition home or self-care (01) ==
LOC: MTRAD 08:50
PROVIDERS: PCP Family Medicine; Referring Provider Family Medicine; Visit Provider Family Medicine
DX: M16.9 Osteoarthritis of hip, unspecified (principal); M54.16 Radiculopathy, lumbar region; M25.569 Pain in unspecified knee
CPT/HCPCS: 72110; 73521; 73564

== ENCOUNTER 2024-01-23 11:00 | Outpatient (RCR) | payer MEDICARE, SELFPAY ==
--- NOTE | 2023-12-22 13:00 | HP.PTEVAL_ITS ---
Patient's Visit Information Visit Information Visit Information: JACOB MCCALL is a 83 year old F referred to Physical Therapy by Dr. Satish Berry MD with a diagnosis of Falls. Date of Evaluation: 12/22/23 Physical Therapist: Jim Garrison, DPT, OCS, CSCS Visit Plan Frequency: 3x /Week Duration: 4-6 Weeks Plan: 3x/week for 4-6 weeks for... 1. standing LE and general ex and progress to HEP with pics. 2. manual therapy for L hip PROM and distraction to help with hip pain 3. bend and recover and weight shift balance ex to I. Subjective Subjective: I have had a couple falls. Dizzy alot meaning unsteady. Last fall was bending over to plug in and coming back up she fell backwards. I can't get off the floor. Another fall Happened getting ready to go to bed and getting something out of fridge and then laid there all night. uses wh walker rollator all the time.Was not using walker when she fell. Had a cane the first time. No problem lying down or sitting with balance, maybe lightheaded sometimes. Is on blood pressure and changed to less because blood pressure was low. Sleep is OK. Not employed. Spends day watching tv and out the window. No regualr exercises except a few sitting down. L hip might be bad. Hobbies: reading is OK. Takes longer. Lives alone in two story on one story. bathrooms are fixed for her. Step in shower, no steps in house. Pain L hip sometimes: Pain Intensity (Out of 10): 2 Pain Intensity Range: Unrated Objective Objective: Walks slowly into PT with rollator walker mod I. L antalgia in gait and avoiding L hip extension, hunched over at walker. Without AD, L leg very unstable and painful at the hip, hard to walk and not safe. Trasnfers with UE are I chair and bed. Weakness obvious in core and hips with bed trasnfers. AROM LE L hip 0 ext and 12 abd and 90 flexion limited by pain, IR also limited to neutral and painful. R hip AROM 110 flexion 20 abd, 8 IR, no pain. knee and ankles AROM WFL. Tightness obvious in HS and quads. reflexes 2/3 patella adn achilles B Sensation WNL to gross lgiht touch in LE B. strength hips 3- ext and 3 abduciton B hips 3 hip flexion L and 3+ R. knees 4- B flexiona dn ext, ankles 4- B. Core ext 3 and flexion 3+. + L hip scour. Hard to march in place but able to heel raise with support. Balance/Special Test Scores Functional Gait Assessment Score: 15 % Disability: 50.0000 Lower Extremity Functional Score: 17 Goals Goal 1:: Ambulate without antalgia with rollator safe and I into PT straight up tall without VC Goal Time Frame: 4-6 Weeks Goal 2:: I approrpiate HEP for general strength ex, L hip pain and balance via HEP Goal Time Frame: 4-6 Weeks Goal 3:: Pt feel gait is 50% improved and pain 2/10 at worst Goal Time Frame: 4-6 Weeks Goal 4:: FGA Goal Time Frame: 4-6 Weeks Rehabilitation Potential Physical Therapy Diagnosis: Falls and imbalance and L hip pain leading to mobility deficits Rehabilitation Potential: Fair Anticipated Interventions Patient/Client Instruction: Educate patient on: Condition and Risk Factors For the Purpose of:: To decrease pain, To increase ROM, To improve nutrient delivery to tissue, To improve muscle performance and motor function, To increase tolerance to activity/condition/position, To improve ability of physical actions for home/community/work/leisure and To improve gait and locomotor functions Therapeutic Exercise to Include: Strength training, Balance training, Postural training, Flexibilty training, Gait and locomotor training, Passive ROM and Active ROM For the Purpose of:: To decrease pain, To increase ROM, To improve nutrient delivery to tissue, To improve muscle performance and motor function, To inc rease tolerance to activity/condition/position, To improve ability of physical actions for home/community/work/leisure and To improve gait and locomotor functions Manual Therapy Techniques to Include: Mobilization, Passive ROM and Soft tissue mobilization For the Purpose of:: To decrease pain, To increase ROM and To improve nutrient delivery to tissue Text: Thank you for the opportunity to evaluate your patient. For Medicare and Medicare HMO plans, please review the plan of care and approve it. It will need to be FAXED BACK to us at [phone] for Medicare purposes. For Medicare only, by signing this I certify the plan of care. Please let me know if there are questions or concerns regarding this plan of care. Physician Signature: Date:
--- NOTE | 2024-01-23 11:46 | HP.PTDCSUM ---
Discharge Summary D/C summary: It has been my pleasure to treat JACOB MCCALL referred by Dr. Satish Berry MD, with the diagnosis of Falls for a total of 8 visit(s). Discharge Date: 01/23/24 Please see the following information for a summary of their discharge status. Subjective Subjective: Mobility problems are from Hip and needs replacement adn will happen in February and then will return for PT. Pain has been 6/10 with walking and 0 at rest. Was outside yesterday walking with rollator and did that 4x and R knee hurt after and L hip is worse. HEP: walking, sidestepping, marching sink exercises. Using rollator. No steps at home and comfortable with walker. Pain L hip sometimes: Pain Intensity (Out of 10): 8 Overall Improvement % Improvement: 10 Objective Objective/Function: Very sore adn slow moving upon exitting chair and needs rails. No steps necessary. Patient is not improving in pain level overalls with any consistency and is looking forward to her KASEY Goals Goal 1:: Ambulate without antalgia with rollator safe and I into PT straight up tall without VC Goal Progress: Not Progressing Goal 2:: I approrpiate HEP for general strength ex, L hip pain and balance via HEP Goal Progress: Goal Met Goal 3:: Pt feel gait is 50% improved and pain 2/10 at worst Goal Progress: Not Progressing Goal 4:: FGA Goal Progress: Not Progressing Plan Plan: d/c to HEP and will return after KASEY 02/11 D/C Information Discharge Comments: Will have KASEY 02/11. Appropriate precations, exercises, mobility and poc reviewed for post surgery. d/c sentence: If there are questions or concerns regarding this patient's physical therapy, please feel free to call me at [phone]. Thank you for the referral of this patient. Sincerely, Jim Garrison, DPT, OCS, CSCS Balance/Gait/Functional tests Balance/Special Test Scores Functional Gait Assessment Score: 15 % Disability: 50.0000 Lower Extremity Functional Score: 12 Improvement % Improvement: 10
== END 2024-01-23 19:00 | disposition home or self-care (01) ==
LOC: PT 11:00
PROVIDERS: PCP Family Medicine; Referring Provider Family Medicine; Visit Provider Family Medicine
DX: Z91.81 History of falling (principal)
CPT/HCPCS: 97110; 97161; 97530

== ENCOUNTER → 2024-01-29 | Outpatient (CLI) | payer MEDICARE, SELFPAY ==
[2024-01-29 14:04] LABS: Mucous, Urine 0 SEEN /hpf (<or=2+); Red Blood Cells-Urine 0 SEEN /hpf (0-5)
[2024-01-29 15:05] LABS: Color, Urine Yellow (Yellow); Glucose, Dipstick 1000 mg/dl (Normal); Ketone-Dipstick 5 mg/dl (Negative); Leukocyte Esterase-Dipstick 100 /ul (Negative); Nitrite-Dipstick Positive (Negative); Occult Blood-Urine Negative /ul (Negative); Protein-Dipstick Negative (Negative); Specific Gravity, Urine 1.015 (1.002-1.030); Urine Bilirubin Dipstick Negative (Negative); Urine Clarity Sl. Cloudy (Clear); Urine Urobilinogen Normal (Normal)
[2024-01-29 15:07] LABS: Absolute Lymphocyte Count 1.79 X10^3/uL (0.83-4.51); Absolute Neutrophil Count 7.6 X10^3/uL (2.0-7.7); Basophil# 0.06 X10^3/uL; Basophil% 0.6 % (0-1); Eosinophil# 0.16 X10^3/uL; Eosinophils% 1.5 % (0-5); Hematocrit 42.1 % (37-47); Hemoglobin 12.4 g/dL (12.0-15.0); Lymphocyte # 1.79 X10^3/ul (0.83-4.51); Lymphocyte % 16.5 % (19-41); Mean Corp Hgb Conc 29.5 g/dL (32-36); Mean Corpuscular Hgb 24.5 pg (27.0-32.0); Mean Corpuscular Volume 83.2 fL (81-99); NRBC Flagged by Analyzer 0 % (0-5); Neutrophil # 7.59 X10^3/uL (2.7-7.7); Neutrophil % 69.8 % (47-70); Platelet Count 312 K/mm3 (150-450); RBC Distribution Width CV 15.8 % (11.6-14.6); RBC Distribution Width SD 47.7 fl (35.1-43.9); Red Blood Count 5.06 M/mm3 (4.2-5.4); White Blood Count 10.9 K/mm3 (4.4-11.0)
[2024-01-29 15:35] LABS: Hemoglobin A1c 6.2 % (3.8-5.6)
[2024-01-29 15:38] LABS: Vitamin D,25 Hydroxy 82.6 ng/mL
[2024-01-29 15:52] LABS: ALB/GLOB Ratio 0.9 RATIO (0.9-2.4); AST(SGOT) 15 U/L (15-37); Alanine Aminotransfer ALT/SGPT 14 U/L (13-56); Albumin, Serum 3.5 g/dL (3.2-5.0); Alkaline Phosphatase 70 U/L (45-117); Anion Gap 5 (5-15); BUN 20 mg/dL (7-18); BUN/Creat Ratio 20.9 RATIO (10-20); Calcium,Total 9.7 mg/dL (8.5-10.1); Chloride 105 mmol/L (98-107); Cholesterol 129 mg/dL (200); Creatinine, Serum 0.96 mg/dL (0.55-1.02); EST Glomerular Filtration Rate 59 mL/min (>60); Est Glom Filt Rate - Afr Amer 72 mL/min (>60); Globulin 3.7 g/dL (2.2-4.2); Glucose 80 mg/dL (74-106); High Density Lipoprotein 43 mg/dL; Potassium 4.2 mmol/L (3.5-5.1); Protein, Total 7.2 g/dL (6.4-8.2); Sodium Level 138 mmol/L (136-145); Thyroid Stim Hormone (TSH) 2.25 uIU/mL (0.358-3.74); Triglycerides 112 mg/dL; Very Low Density Lipoprotein 22 mg/dL (5-40)
[2024-01-29 16:04] LABS: Bacteria 2+ /hpf (None Seen); Squamous Epithelial Cells - UA 0-5 SEEN /hpf (5-10); White Blood Cells 5-10 SEEN /hpf (0-5)
== END | disposition home or self-care (01) ==
LOC: MFPLAB 11:54
PROVIDERS: PCP Family Medicine; Visit Provider Family Medicine
DX: E11.8 Type 2 diabetes mellitus with unspecified complications (principal); E55.9 Vitamin D deficiency, unspecified
CPT/HCPCS: 36415; 80053; 80061; 81001; 82306; 83036; 84443; 85025

== ENCOUNTER → 2024-04-27 | Outpatient (CLI) | payer MEDICARE, SELFPAY ==
[2024-04-27 10:34] LABS: Mucous, Urine 0 SEEN /hpf (<or=2+); Red Blood Cells-Urine 0 SEEN /hpf (0-5); Squamous Epithelial Cells - UA 0 SEEN /hpf (5-10)
[2024-04-27 11:51] LABS: Absolute Lymphocyte Count 1.19 X10^3/uL (0.83-4.51); Absolute Neutrophil Count 4.4 X10^3/uL (2.0-7.7); Basophil# 0.06 X10^3/uL; Basophil% 0.9 % (0-1); Eosinophil# 0.13 X10^3/uL; Hematocrit 33.3 % (37-47); Hemoglobin 9.5 g/dL (12.0-15.0); Lymphocyte # 1.19 X10^3/ul (0.83-4.51); Lymphocyte % 18.3 % (19-41); Mean Corp Hgb Conc 28.5 g/dL (32-36); Mean Corpuscular Hgb 21.4 pg (27.0-32.0); Mean Corpuscular Volume 75.2 fL (81-99); Mean Platelet Vol. 10.7 fl (6.2-12.0); Monocyte# 0.66 X10^3/uL; Monocyte% 10.1 % (0-10); NRBC Flagged by Analyzer 0 % (0-5); Neutrophil # 4.44 X10^3/uL (2.7-7.7); Neutrophil % 68.2 % (47-70); Platelet Count 363 K/mm3 (150-450); RBC Distribution Width CV 16.2 % (11.6-14.6); RBC Distribution Width SD 43.8 fl (35.1-43.9); Red Blood Count 4.43 M/mm3 (4.2-5.4); White Blood Count 6.5 K/mm3 (4.4-11.0)
[2024-04-27 12:11] LABS: PTHIN 35.6 pg/mL (18.4-80.1); Vitamin D,25 Hydroxy 64.1 ng/mL
[2024-04-27 12:17] LABS: Color, Urine Yellow (Yellow); Glucose, Dipstick 1000 mg/dl (Normal); Ketone-Dipstick Negative (Negative); Leukocyte Esterase-Dipstick 25 /ul (Negative); Nitrite-Dipstick Positive (Negative); Occult Blood-Urine Negative /ul (Negative); Protein-Dipstick Negative (Negative); Specific Gravity, Urine 1.005 (1.002-1.030); Urine Bilirubin Dipstick Negative (Negative); Urine Clarity Clear (Clear); Urine Urobilinogen Normal (Normal)
[2024-04-27 12:27] LABS: AST(SGOT) 13 U/L (15-37); Alanine Aminotransfer ALT/SGPT 11 U/L (13-56); Albumin, Serum 3.5 g/dL (3.2-5.0); Alkaline Phosphatase 66 U/L (45-117); Anion Gap 7 (5-15); BUN 25 mg/dL (7-18); BUN/Creat Ratio 21.6 RATIO (10-20); Calcium,Total 9.5 mg/dL (8.5-10.1); Chloride 105 mmol/L (98-107); Cholesterol 136 mg/dL (200); Creatinine, Serum 1.16 mg/dL (0.55-1.02); EST Glomerular Filtration Rate 47 mL/min (>60); Est Glom Filt Rate - Afr Amer 57 mL/min (>60); Globulin 3.4 g/dL (2.2-4.2); Glucose 197 mg/dL (74-106); High Density Lipoprotein 52 mg/dL; Phosphorus 4.1 mg/dL (2.5-4.9); Potassium 4.3 mmol/L (3.5-5.1); Protein, Total 6.9 g/dL (6.4-8.2); Sodium Level 138 mmol/L (136-145); Triglycerides 125 mg/dL; Very Low Density Lipoprotein 25 mg/dL (5-40)
[2024-04-27 12:33] LABS: Bacteria 2+ /hpf (None Seen); White Blood Cells 5-10 SEEN /hpf (0-5)
[2024-04-27 13:17] LABS: Microalbumin,Random Urine 13.3 mg/L (NO RANGE EST.); Microalbumin:Creatinine Ratio 39.6 mg/g CRE (<30 mg/g CRE); Protein, Urine (Random) 11.6 mg/dL (<11.9); Protein:Creat Ratio 345 mg/g CRE (0-200)
[2024-04-27 17:30] LABS: Hemoglobin A1c 5.9 % (3.8-5.6)
[2024-04-28 12:14] LABS: Ferritin 8 ng/mL (8-252); Iron 13 ug/dL (50-170); Iron Binding Capacity,Total 397 ug/dL (250-450); PERCENT IRON SATURATION 3.3 % (15.0-55.0)
[2024-04-28 12:15] LABS: Vitamin B12 314 pg/mL (211-911)
== END | disposition home or self-care (01) ==
LOC: MFPLAB 10:31
PROVIDERS: PCP Family Medicine; Visit Provider Family Medicine
DX: D64.9 Anemia, unspecified (principal); E11.22 Type 2 diabetes mellitus with diabetic chronic kidney disease; E55.9 Vitamin D deficiency, unspecified; N18.9 Chronic kidney disease, unspecified
CPT/HCPCS: 80053; 80061; 81001; 82043; 82306; 82570; 82607; 82728; 83036; 83540; 83550; 83970; 84100; 84156; 85025

== ENCOUNTER 2024-04-29 14:00 | Outpatient (RCR) | payer MEDICARE, SELFPAY ==
--- NOTE | 2024-04-05 09:09 | HP.PTEVAL_ITS ---
Patient's Visit Information Visit Information Visit Information: JACOB MCCALL is a 83 year old F referred to Physical Therapy by Dr. Josep Cervantes MD with a diagnosis of L KASEY, anterior approach. Date of Evaluation: 03/19/24 Physical Therapist: Miguel Hernandez DPT Visit Plan Frequency: 2x /Week Duration: 6 Weeks Plan: Start with functional strengthening of BLEs, stairs negotiation and gait with weaning from AD as safety allows. Add in HS stretching as well. Subjective Subjective: Pt. is here today for her initial evaluation with diagnosis of L KASEY, anterior approach. Pt. is overall doing much better she is about 6 weeks out of surgery. Pt. arrives with use of SPC, but has minimal pain. Pt. is overall pleased. She is not driving yet. She is able to do most things around the house, but is not doing outside shores yet. Pt. denies N/T in either LE. Pt. does have some LLE weakness, but has been improving well. Pt. reports having overall pleased thus far with her surgery. She is sleeping well, and at this point believes she just needs to be stronger. Pain L hip: Pain Intensity (Out of 10): 0 Pain Intensity Range: 0 and 2 Objective Objective: POSTURE: Pt. has decent posture in stance, slight lateral wt. shift to R side. PALPATION: Pt. has no homans sign. Pt. has not pain with palpation throughout LLE. NEURO: Normal throughout. Pt is able to rise on heels and toes without issues. ROM: L hip: flexion 110deg, abd 45deg. Pt. does have some tightness with her HS, but not severe. MMT: RLE: knee:5/5 throughout; hip: flexion 17.1#, abd 11.2#, ext 8.4#. LLE: knee: 5/5 throughout; hip: flexion 5.3#, abd 6.1#, ext 4.1#. GAIT: Pt. ambulates well with SPC, slight decreased R step length, slight antalgic pattern during L stance phase. STAIRS: Pt. completed with 2 HR with step to pattern, no pain noted. Balance/Special Test Scores TUG Test Time Seconds: 19.3 30 Second Chair Rise Test Seconds: 8 WOMAC Total Score: 40 WOMAC Percentatge: 58.3400 Goals Goal 1:: LTG: pt. to be I with HEP. Goal Time Frame: 4-6 Weeks Goal 2:: STG: Pt. to ambulate with normal gait pattern without AD. Goal Time Frame: 2-4 Weeks Goal 3:: LTG: Pt. to have increased LLE strength increased by 5# throughout to increase stability with all gait and functional mobility. Goal Time Frame: 4-6 Weeks Goal 4:: LTG: Pt. to negotiate 1 slight of stairs with 1 HR with reciprocal pattern without limitations. Goal 5:: LTG: Pt. to complete all functional mobility with out AD without increase in L hip pain. Goal Time Frame: 4-6 Weeks Rehabilitation Potential Physical Therapy Diagnosis: Pt. has signs and symptoms consistent with L KASEY with anterior approach. Pt. is overall doing well. She does still present with LLE weakness effecting her overall functional mobility and tolerance to ho usehold/outdoor chores. Pt. would benefit from PT to address the above limitations. Rehabilitation Potential: Excellent Anticipated Interventions Patient/Client Instruction: Educate patient on: Condition, Plan of Care, Risk Factors and Benefits of Fitness Program For the Purpose of:: To improve decision making, To facilitate caregiver knowledge, To improve self management, To prevent re-injury and To improve ability to perform tasks related to life management Therapeutic Exercise to Include: Strength training, Power training, Endurance training, Postural training, Flexibilty training, Gait and locomotor training and Dynamic Lumbar Stabilization For the Purpose of:: To decrease pain, To decrease swelling/inflammation, To increase ROM, To decrease level of supervision to perform tasks, To improve ability of physical actions for home/community/work/leisure, To improve gait and locomotor functions, To improve health of tissue, To decrease soft tissue restriction and To increase flexibility/ROM Text: Thank you for the opportunity to evaluate your patient. For Medicare and Medicare HMO plans, please review the plan of care and approve it. It will need to be FAXED BACK to us at [phone] for Medicare purposes. For Medicare only, by signing this I certify the plan of care. Please let me know if there are questions or concerns regarding this plan of care. Physician Si gnature: Date:
== END 2024-04-29 19:00 | disposition home or self-care (01) ==
LOC: PT 14:00
PROVIDERS: PCP Family Medicine; Referring Provider Orthopaedic Surgery; Visit Provider Orthopaedic Surgery
DX: M16.12 Unilateral primary osteoarthritis, left hip (principal)
CPT/HCPCS: 97110; 97161

== ENCOUNTER 2024-06-22 08:41 | Day surgery (SDC) | payer MEDICARE, SELFPAY ==
[2024-06-22] VITALS (7 sets, daily range): BP systolic 98–131; BP diastolic 45–62; PULSE 56–62; RESP 16–18; TEMP 36.6–37; O2SAT 93–96; BMI 29.0
--- NOTE | 2024-06-22 | GASB_PTH ---
PATIENT: JACOB MCCALL LOC: EN U#:[id number] AGE/SX: 84/F ROOM: RE06/22/[address]: Dr. Vladimir Blanchard MD : 1940 BED: DIS: 06/22/2024 SPEC #: [id number] RECD: 06/22/24 14:16 STATUS: GISELLE DOROTEO #: [id number] SAMIR: 06/22/24 00:[address]: Vladimir Blanchard DEPT: SURGICAL PATHOLOGY RECD BY: Erasmo Forbes ENTERED: 06/22/24 14:16 SP TYPE: Gastric Bx OTHR DR: Dr. Satish Berry MD Tissues: Gastric mucous membrane Procedures: Surgery Specimen Level IV HEADER OPERATION: Colonoscopy, EGD with biopsies PRE-OP DIAGNOSIS: Positive fecal occult blood test TISSUE SUBMITTED: Antrum biopsy MICROSCOPIC DIAGNOSIS Antrum, biopsy: Moderate chronic active gastritis. See comment. IKE. 06/23/2024 COMMENT The results of immunohistochemistry for Helicobacter pylori will be reported separately ([id number]). MICROSCOPIC DESCRIPTION Slides are reviewed. GROSS DESCRIPTION Received in fixative is one container labeled with the patient's name and designated Antrum biopsy. The specimen consists of two irregular fragments of light negro soft tissue that in aggregate measure 0.6 x 0.5 x 0.1 cm. The specimen is totally submitted in one cassette. 06/22/2024 TC:2 CPT:40234
[2024-06-22] MEDS: Lactated Ringers 1,000 ML 15 ML IV (09:18)
--- NOTE | 2024-06-22 09:45 | IMM_PTH ---
PATIENT: JACOB MCCALL LOC: EN U#:[id number] AGE/SX: 84/F ROOM: RE06/22/[address]: Dr. Vladimir Blanchard MD : 1940 BED: DIS: 06/22/2024 SPEC #: [id number] RECD: 06/22/24 14:38 STATUS: GISELLE REQ #: [id number] SAMIR: 06/22/24 09:[address]: Vladimir Blanchard DEPT: IMMUNOHISTOCHEMISTRY RECD BY: Grant Holder ENTERED: 06/22/24 14:39 SP TYPE: IMMUNO OTHR DR: Dr. Satish Berry MD Tissues: Gastric mucous membrane Procedures: H Pylori (initial) PHYSICIAN & INSTITUTION [place] [address] SPECIMEN INFORMATION: Tissue Source: Antrum biopsy Clinical Info: Positive fecal occult blood test Specimen Number: [id number] CPT code: 98740 METHODOLOGY: Deparaffinized sections of prefer/formalin-fixed tissue or PAP/DQ stained slides are incubated with monoclonal/polyclonal antibodies/oligonucleotide probes. Localization is made via biotin free immunoperoxidase method. Appropriate controls are performed and reacted as expected. Results on target cell population are indicated in the following table: RESULTS: ANTIBODY / CLONE RESULT H Pylori (polyclonal) positive These tests were developed and their performance characteristics determined by [facility]. They may not have been cleared or approved by the U.S. Food and Drug Administration. The FDA has determined that such clearance or approval is not necessary. The above immunohistochemical/dualISH markers are ordered and reviewed by the Pathologist. INTERPRETATION: Antrum, biopsy: Positive for Helicobacter pylori organisms. 06/23/2024
[2024-06-22 09:46] LABS: Bedside Glucose 135 mg/dL (74-106)
--- NOTE | 2024-06-22 09:48 | PCM.HP.BLA ---
History and Physical Date of Admission: 06/22/24 Intake Vital Signs 04/21/2312:05 05/25/2413:45 Height 5 ft 2 in 5 ft 5 in Weight: 181 lb BMI 30.1 BP 108/69 Blood Pressure Location Rt brachial Position Sitting Respiration 17 Pulse 88 Pulse Source Monitor Pulse Oximetry (%) 93 Oxygen Delivery Method room air Intake Visit Reasons: COLONOSCOPY Chief Complaint: colonoscopy Is patient in pain?: No Allergies Penicillins Allergy (Verified 05/25/24 13:45) SwellingSulfa (Sulfonamide Antibiotics) Allergy (Verified 05/25/24 13:45) Unknown Medications ?Medication ?Instructions ?Recorded ?Confirmed ?Type amlodipine 5 mg tablet 5 mg PO DAILY 07/15/20 05/25/24 History atorvastatin 20 mg tablet 20 mg PO QHS 07/15/20 05/25/24 History benazepril 10 mg tablet 10 mg PO DAILY 07/15/20 05/25/24 History hydrochlorothiazide 25 mg tablet 25 mg PO DAILY 07/15/20 05/25/24 History magnesium amino acid chelate 100 100 mg PO QHS 07/15/20 05/25/24 History mg tablet omeprazole 20 mg capsule,delayed 20 mg PO DAILY 07/15/20 05/25/24 History release cholecalciferol (vitamin D3) 25 25 mcg PO DAILY 03/04/23 05/25/24 History mcg (1,000 unit) tablet (Vitamin D3) dapagliflozin propanediol 10 mg 10 mg PO DAILY 03/04/23 05/25/24 History tablet (Farxiga) metformin 1,000 mg tablet 1,000 mg PO BID 03/04/23 05/25/24 History nabumetone 500 mg tablet 500 mg PO PRN PRN Pain 03/04/23 05/25/24 History linagliptin 5 mg tablet (Tradjenta) 5 mg PO DAILY 05/25/24 05/25/24 History Have you fallen in the past year?: No PFSH Medical History (Updated 05/25/24 @ 14:[address] Vladimir Blanchard MD) Loss of hearing Wears glasses Post-menopausal Loneliness History of steroid therapy Ambulates with cane Walker as ambulation aid History of renal disease Low iron High cholesterol Easy bruising Back pain Injury of head and neck Blackout Dietary restriction Gastric reflux Non-smoker Leg cramps History of pain when walking Flu History of echocardiogram Pain Influenza B COVID Arthritis Hypertension Diabetes Surgical History Hx of left cataract extraction Hx of right cataract extraction Hx of colonoscopy Hx of appendectomy Hx of tubal ligation Hx of total knee replacement Hx of total knee arthroplasty Family History (Updated 05/25/24 @ 13:44 by Roselia Jimenez) Mother Diabetes Hypertension Cancer Social History Smoking Status: Never smoker HPI HPI HPI: Patient is an 84-year-old female here with positive fecal occult blood test. The patient denies any gross blood in the stool or abdominal pain. Patient says that her last colonoscopy was 30 years ago. She denies family history of colon cancer. ROS General General: Yes fatigue; No weight change, appetite, colon cancer, breast cancer or weakness HEENT HEENT: No difficulty swallowing, eye injury, eye surgery, swollen glands or hoarseness Endo Endocrine: Yes diabetes mellitus; No thyroid disease, thyroid cancer, Hair loss, heat intolerance or cold intolerance Skin Skin: No rash or changing moles Musc Musculoskeletal: Yes arthritis; No back problems, rheumatoid arthritis, gout or joint pain Cardio Cardiovascular: No murmur, pacemaker, heart disease, atrial fibrillation, high blood pressure, heart attack, heart stent, palpitations, shortness of breat with exertion or chest pain Psych Psychiatric: No depression, anxiety or hearing voices Resp Respiratory: No shortness of breath, No sleep apnea, No cough, No COPD, No asthma, No emphysema and No wheezing Gastro Gastrointestinal: No abdominal pain, No nausea or vomiting, No diarrhea, Yes constipation, No blood in stool, No acid reflux, No hemorrhoids, No ulcers, No gallbladder problem and Yes black,tarry stools Juan Hematologic: No blood thinners, No blood disorders, No bleeding, Yes anemia and No blood clots Neuro Neurologic: No system reviewed and no additional complaints, except as documented, No as per HPI, No abnormal gait, No abnormal hearing, No abnormal movements, No abnormal speech, No behavioral changes, No burning sensations, No confusion, No convulsions, No disequilibrium, No dizziness, No localized weakness, No frequent falls, No headache(s), No lack of coordination, No loss of vision, No memory loss, No numbness, No other visual disturbances, No radicular pain, No restless legs, No sensory deficit, No syncope, No tingling, No tremor(s), No weakness and No other Exam Const General: cooperative Orientation: alert and oriented x3 HENMT Head: normal to inspection Neck Neck: normal visual inspection and full ROM Chest Chest palpation & inspection: normal inspection of the chest Resp Effort & Inspection: normal respiratory effort Auscultation: clear to auscultation bilaterally Cardio Rate: regular rate Rhythm: regular rhythm GI Inspection: non-distended Palpation: soft and nontender Skin General: no rashes or lesions noted Neuro General: patient alert and patient oriented x3 Extrem General: full ROM Psych Appearance: grossly normal Mental Status: mental status grossly normal Assessment and Plan Assessment and Plan (1) Fecal occult blood test positive: Status: Acute Plan: The patient had a positive fecal occult blood test and requires EGD and colonoscopy to evaluate. I explained endoscopy in detail to the patient. I explained the risks including but not limited to stroke or heart attack with anesthesia, perforation of the GI tract, bleeding, infection. I explained that any of these could necessitate further emergency surgery. The patient understands and all questions were answered sufficiently. The patient wishes to proceed with procedure. Vladimir Blanchard MD Pager: [facility] [address] [place] [address], [address] [place] [address] Office: I have examined the patient and the H&P has been reviewed. There are no clinical changes since date of exam.
--- NOTE | 2024-06-22 09:55 | PRE.ANES_ITS ---
ASA Classification* ASA Classification ASA Classification: 2 Assessment & Plan Anesthesia* Anesthesia Assessment Anesthesia Assessment: Discussed sedation and/or anesthesia options, risks, benefits, and alternatives with patient/parents/legal guardian/POA. Questions invited. The patient/parents/legal guardian/POA seems to understand and agrees to proceed with anesthesia plan. Reviewed the physical assessment, medical history, allergy history and patient home medications list prior to surgery/procedure/anesthetic and documented any changes. Performed airway and anesthesia risk assessments. Anesthesia Type Anesthesia Type: MAC History Source History Obtained from:: Patient and Chart Anesthesia Focused Assessment* Temperature: 97.9 F Pulse Rate: 56 Blood Pressure: 131/62 Respiratory Rate: 18 Pulse Ox: 96 Oxygen Delivery Method: Room Air Airway Assessment Mouth opens: >3 cm Mallampati Score: III Teeth Condition: Caps/Crowns and Partial (Permanent bridge * 2 are tight.) Neck Range of motion (ROM): Limited ROM (Somewhat decreased extension) Pertinent Findings EKG Pertinent Findings:: 01/08/[address] abnormality Focused Labs Anesthesia Preop lab: CBC WBC 6.5 K/mm3 (4.4-11.0) 04/27/24 10:32 RBC 4.43 M/mm3 (4.2-5.4) 04/27/24 10:32 Hgb 9.5 g/dL (12.0-15.0) L 04/27/24 10:32 Hct 33.3 % (37-47) L 04/27/24 10:32 Plt Count 363 K/mm3 (150-450) 04/27/24 10:32 CHEMISTRY Potassium 4.3 mmol/L (3.5-5.1) 04/27/24 10:32 Sodium 138 mmol/L (136-145) 04/27/24 10:32 Magnesium 1.8 mg/dL (1.6-2.6) 01/08/23 10:30 Phosphorus 4.1 mg/dL (2.5-4.9) 04/27/24 10:32 BUN 25 mg/dL (7-18) H 04/27/24 10:32 Creatinine 1.16 mg/dL (0.55-1.02) H 04/27/24 10:32 Glucose 197 mg/dL (74-106) H 04/27/24 10:32 POC Glucose 135 mg/dL (74-106) H 06/22/24 09:00 TSH 2.25 uIU/mL (0.358-3.74) 01/29/24 11:55 COAG Pre-Assessment Diagnosis/Proposed Procedure Planned Operative Procedure(s): EGD/CSCOPE Anesthesia History Anesthesia History - 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 When Was Last Pacemaker Check QUESTION #4 FULL TEXT: You/Your Family Experience fever (hyperthermia) with Anesthesia Last Oral Intake Last Oral intake: Last Oral Intake NPO since 00:00 06/22/24 09:19 Meds taken in AM with sips of Yes 06/22/24 09:19 water? Meds patient instructed to take am of surgery PONV PONV - mainspring winder: PONV - mainspring winder Female Yes 06/21/24 09:34 HX of Motion Sickness No 06/21/24 09:34 HX of N/V After Surgery No 06/21/24 09:34 Non-Smoker Yes 06/21/24 09:34 Duration of Surgery greater No 06/21/24 09:34 than 60 minutes Number of Risk Factors 2 06/21/24 09:34 PONV Score Moderate Risk 06/21/24 09:34 Height & Weight Height & Weight: Anesthesia: Height & Weight Height 5 ft 5 in 06/22/24 09:19 Weight: 79.107 kg 06/22/24 09:19 Body Mass Index (BMI) 29.0 06/22/24 09:19 Respiratory Assessment Respiratory Assessment - mainspring winder: Respiratory Tract Infection Hx - mainspring winder Hx Respiratory Tract Infection No 06/21/24 09:34 STOP Sleep Apnea STOP Sleep Apnea - mainspring winder: STOP Sleep Apnea - mainspring winder Hx Hypertension Yes: CONTROLLED WITH MED 06/21/24 09:34 Hx Sleep Apnea No 06/21/24 09:34 CPAP BIPAP Do you snore loudly (louder No 06/21/24 09:34 than talking or can be heard Do you often feel tired/ Yes 06/21/24 09:34 fatigued/ sleepy during daytime? Has anyone observed you stop No 06/21/24 09:34 breathing during sleep? STOP Results Positive 06/21/24 09:34 QUESTION #5 FULL TEXT : Do you snore loudly (louder than talking or can be heard through closed doors)? Tobacco Use History Tobacco Use History - mainspring winder: Tobacco Use History - mainspring winder Tobacco Use Non-smoker 01/10/23 07:41 Smoking Status Never smoker 06/21/24 09:34 Hx Tobacco Use No 06/21/24 09:34 Years Smoking Packs Smoked per Day Smoking Cessation Date was within the last 15 years Hx Smoking Cessation Date Hx Smoking Cessation Counseling Hematologic Medial History Hematologic Hx - mainspring winder: Hematologic Medical Hx - surveillance agent Hx of Blood Transfusion No 06/21/24 09:34 Hx of Transfusion in last 3 No 06/21/24 09:34 Months Date of Last Transfusion (if within last 3 months) Ever experience any problems No 06/21/24 09:34 with transfusion(s)? Specify any problems Hx of Preganancy in last 3 No 06/21/24 09:34 Months Nurse Filling Out Transfusion DSCHRIBER 06/21/24 09:34 & Questions: Date: 06/21/24 06/21/24 09:34 Time: 09:35 06/21/24 09:34 Patient unable to answer at this time (ie. confused, unrespo /Reproduction History /Reproductive History - mainspring winder: /Reproductive Hx- mainspring winder Hx Now No 06/21/24 09:34 Gestational Age (in weeks): EDC: Hx Hx Para Hx Section SAB No 06/21/24 09:34 Active Medications Active Medications: Current Medications Generic Name Dose Route Start Last Admin Trade Name Freq PRN Reason Stop Dose Admin Lactated Ringer's 1,000 mls @ 15 mls/hr 06/22/24 09:00 06/22/24 09:18 IV 15 mls/hr .Q48H EDMAR Administration PFSH Medical History Anxiety Bruising Unsteady gait when walking Loss of hearing Wears glasses Post-menopausal Ambulates with cane History of renal disease High cholesterol Easy bruising Back pain Injury of head and neck Blackout Dietary restriction Gastric reflux Non-smoker Leg cramps History of echocardiogram Pain Influenza B COVID Arthritis Hypertension Diabetes Home Medications ?Medication ?Instructions ?Recorded ?Last Taken ?Type amlodipine 5 mg tablet 5 mg PO DAILY 07/15/20 06/22/24 History atorvastatin 20 mg tablet 20 mg PO QHS 07/15/20 06/20/24 History benazepril 10 mg tablet 10 mg PO DAILY 07/15/20 06/22/24 History hydrochlorothiazide 25 mg tablet 25 mg PO DAILY 07/15/20 06/21/24 History magnesium amino acid chelate 100 100 mg PO QHS 07/15/20 06/20/24 History mg tablet omeprazole 20 mg capsule,delayed 20 mg PO DAILY 07/15/20 06/22/24 History release cholecalciferol (vitamin D3) 25 25 mcg PO DAILY 03/04/23 Unknown History mcg (1,000 unit) tablet (Vitamin D3) dapagliflozin propanediol 10 mg 10 mg PO DAILY 03/04/23 06/21/24 History tablet (Farxiga) metformin 1,000 mg tablet 1,000 mg PO BID 03/04/23 06/21/24 History nabumetone 500 mg tablet 500 mg PO PRN PRN Pain 03/04/23 Unknown History linagliptin 5 mg tablet (Tradjenta) 5 mg PO DAILY 05/25/24 06/21/24 History ferrous sulfate 325 mg (65 mg 325 mg PO BID 06/21/24 06/15/24 History iron) tablet (Iron (ferrous sulfate)) Allergy/AdvReac Type Severity Reaction Status Date / Time Penicillins Allergy Swelling Verified 06/22/24 09:14 Sulfa (Sulfonamide Allergy Unknown Verified 06/22/24 09:14 Antibiotics) Family History Mother Diabetes Hypertension Cancer Surgical History Hx of total hip arthroplasty Hx of left cataract extraction Hx of right cataract extraction Hx of colonoscopy Hx of appendectomy Hx of tubal ligation Hx of total knee replacement Hx of total knee arthroplasty Social History Smoking Status: Never smoker Review of Systems (Anesthesia) ROS Narrative System reviewed and no additional complaints, except as documented.
--- NOTE | 2024-06-22 10:39 | PCM.POST.ANE ---
Anesthesia: Postop Eval I Current Vital Signs Temperature: 98.3 F Pulse Rate: 62 Blood Pressure: 99/47 Respiratory Rate: 16 Pulse Ox: 94 Oxygen Delivery Method: Room Air Assessment Airway patent: Yes Spontaneous unlabored respirations: Yes Mental status: Asleep nausea: No Vomiting: No Anesthesia Complication: Yes Anesthesia Complication Comment:: in situ IV infiltrated Fluid Hydration Crystalloid volume administer (ml): 500 Total IV fluid infused: 500 Progress Note Anesthesia document: Postop Eval 1 completed: Yes
--- NOTE | 2024-06-22 10:43 | OP.EGD_ITS ---
Patient Name: Sue Vasquez Procedure Date: 06/22/2024 9:52 AM Date of : 1940 Age: 84 Procedure: Upper GI endoscopy Indications: Occult blood in stool Providers: Vladimir Blanchard MD Medicines: Propofol per Anesthesia Patient Profile: This is an 84 year old female. Refer to note in patient chart for documentation of history and physical. Complications: No immediate complications. Estimated blood loss: Minimal. Procedure: Pre-Anesthesia Assessment: - Prior to the procedure, a History and Physical was performed, and patient medications and allergies were reviewed. The patient's tolerance of previous anesthesia was also reviewed. The risks and benefits of the procedure and the sedation options and risks were discussed with the patient. All questions were answered, and informed consent was obtained. Prior Anticoagulants: The patient has taken no anticoagulant or antiplatelet agents. After reviewing the risks and benefits, the patient was deemed in satisfactory condition to undergo the procedure. After obtaining informed consent, the endoscope was passed under direct vision. Throughout the procedure, the patient's blood pressure, pulse, and oxygen saturations were monitored continuously. The Colonoscope was introduced through the mouth, and advanced to the third part of duodenum. The upper GI endoscopy was accomplished without difficulty. The patient tolerated the procedure well. Scope In: 10:18:04 AM Scope Out: 10:20:50 AM Total Procedure Duration Time 0 hours 2 minutes 46 seconds Findings: Localized moderate inflammation characterized by congestion (edema) was found at the pylorus. Biopsies were taken with a cold forceps for Helicobacter pylori testing. The esophagus was normal. The examined duodenum was normal. Impression: - Gastritis. Biopsied. - Normal esophagus. - Normal examined duodenum. Recommendation: - Discharge patient to home. - Resume previous diet. - Continue present medications. - Await pathology results. Procedure Code(s): --- Professional --- 80070, Esophagogastroduodenoscopy, flexible, transoral; with biopsy, single or multiple Diagnosis Code(s): --- Professional --- K29.70, Gastritis, unspecified, without bleeding R19.5, Other fecal abnormalities CPT copyright 2021 [employer]. All rights reserved. The codes documented in this report are preliminary and upon shared services and outsourcing manager review may be revised to meet current compliance requirements. Vladimir Blanchard MD 06/22/2024 10:43:09 AM This report has been signed electronically. Number of Addenda: 0 Note Initiated On: 06/22/2024 9:52 AM
--- NOTE | 2024-06-22 10:44 | OP.COLON_ITS ---
Patient Name: Sue Vasquez Procedure Date: 06/22/2024 10:20 AM Date of : 1940 Age: 84 Procedure: Colonoscopy Indications: Gastrointestinal occult blood loss Providers: Vladimir Blanchard MD Medicines: Propofol per Anesthesia Patient Profile: This is an 84 year old female. Refer to note in patient chart for documentation of history and physical. Last Colonoscopy: several years ago. Complications: No immediate complications. Procedure: Pre-Anesthesia Assessment: - Prior to the procedure, a History and Physical was performed, and patient medications and allergies were reviewed. The patient's tolerance of previous anesthesia was also reviewed. The risks and benefits of the procedure and the sedation options and risks were discussed with the patient. All questions were answered, and informed consent was obtained. Prior Anticoagulants: The patient has taken no anticoagulant or antiplatelet agents. After reviewing the risks and benefits, the patient was deemed in satisfactory condition to undergo the procedure. After I obtained informed consent, the scope was passed under direct vision. Throughout the procedure, the patient's blood pressure, pulse, and oxygen saturations were monitored continuously. The Colonoscope was introduced through the anus and advanced to the cecum, identified by appendiceal orifice and ileocecal valve. The colonoscopy was performed without difficulty. The patient tolerated the procedure well. The quality of the bowel preparation was good. The ileocecal valve, appendiceal orifice, and rectum were photographed. Scope In: 10:21:48 AM Scope Withdrawal Time 0 hours 3 minutes 7 seconds Scope Out: 10:32:45 AM Total Procedure Duration Time 0 hours 10 minutes 57 seconds Findings: The entire examined colon appeared normal on direct and retroflexion views. Impression: - The entire examined colon is normal on direct and retroflexion views. - No specimens collected. Recommendation: - Discharge patient to home. - Resume previous diet. - Continue present medications. - Repeat colonoscopy is not recommended due to current age (66 years or older) for screening purposes. Procedure Code(s): --- Professional --- 34744, Colonoscopy, flexible; diagnostic, including collection of specimen(s) by brushing or washing, when performed (separate procedure) Diagnosis Code(s): --- Professional --- R19.5, Other fecal abnormalities CPT copyright 2021 [employer]. All rights reserved. The codes documented in this report are preliminary and upon excellence leader review may be revised to meet current compliance requirements. Vladimir Blanchard MD 06/22/2024 10:44:18 AM This report has been signed electronically. Number of Addenda: 0 Note Initiated On: 06/22/2024 10:20 AM
--- NOTE | 2024-06-22 10:44 | OP.CCLET_ITS ---
06/22/2024 Satish Berry [address] [place] [address] Re : Upper GI endoscopy procedure for Sue Vasquez Dear Dr. Berry This procedure was performed on Saturday, June 22, 2024. My impressions and recommendations are as follows: Impressions : - Gastritis. Biopsied. - Normal esophagus. - Normal examined duodenum. Recommendations : - Discharge patient to home. - Resume previous diet. - Continue present medications. - Await pathology results. My findings are described in the full procedure note, which is enclosed. If I can be of further assistance, please feel free to contact me at Doctor phone number(s): , Work: . Sincerely, Vladimir Blanchard MD 06/22/2024 10:43:09 AM This report has been signed electronically.
--- NOTE | 2024-06-22 10:45 | OP.CCLET_ITS ---
06/22/2024 Satish Berry [address] [place] [address] Re : Colonoscopy procedure for Sue Christina Dear Dr. Berry This procedure was performed on Saturday, June 22, 2024. My impressions and recommendations are as follows: Impressions : - The entire examined colon is normal on direct and retroflexion views. - No specimens collected. Recommendations : - Discharge patient to home. - Resume previous diet. - Continue present medications. - Repeat colonoscopy is not recommended due to current age (66 years or older) for screening purposes. My findings are described in the full procedure note, which is enclosed. If I can be of further assistance, please feel free to contact me at Doctor phone number(s): , Work: . Sincerely, Vladimir Blanchard MD 06/22/2024 10:44:18 AM This report has been signed electronically.
--- NOTE | 2024-06-22 17:22 | PCM.POSTANE2 ---
Anesthesia Postop Eval I Sum Postop Eval Completion status Anesthesia document: Postop Eval 1 completed: Yes Anesthesia Postop Eval I Summary Anesthesia Postop Eval I Summary: Anesthesia Postop Eval I: Assessment Summary Airway patent Yes 06/22/24 10:40 [email or web address] Spontaneous unlabored Yes 06/22/24 10:40 [email or web address] respirations Mental status Asleep 06/22/24 10:40 [email or web address] nausea No 06/22/24 10:40 [email or web address] Vomiting No 06/22/24 10:40 [email or web address] Anesthesia Postop Eval I: Fluid Summary Crystalloid volume administer 500 06/22/24 10:40 [email or web address] (ml) Colloids volume administered ( ml) Blood Product volume administered (ml) Total IV fluid infused 500 06/22/24 10:40 [email or web address] Anesthesia Postop Eval I: Summary Notes Anesthesia Complication Yes 06/22/24 10:40 [email or web address] Anesthesia Complication in situ IV 06/22/24 10:40 [email or web address] Comment: infiltrated Post-operative progress note Anesthesia: Postop Eval II Evaluation Mental status: Awake and Calm Pain Level: 0 nausea: No Vomiting: No Complications Anesthesia Complication: No
== END 2024-06-22 11:14 | disposition home or self-care (01) ==
LOC: EN 08:42 → AC 08:42
PROVIDERS: PCP Family Medicine; Referring Provider Family Medicine; Visit Provider Surgery
PROC: 0DJD8ZZ Inspection of Lower Intestinal Tract, Via Natural or Artificial Opening Endoscopic (ICD-10-PCS; CPT 45378; principal; 2024-06-22 09:40)
DX: R19.5 Other fecal abnormalities (principal); E11.9 Type 2 diabetes mellitus without complications; B96.81 Helicobacter pylori [H. pylori] as the cause of diseases classified elsewhere; E78.00 Pure hypercholesterolemia, unspecified; Z79.84 Long term (current) use of oral hypoglycemic drugs; I10 Essential (primary) hypertension; K21.9 Gastro-esophageal reflux disease without esophagitis; Z79.899 Other long term (current) drug therapy; Z98.41 Cataract extraction status, right eye; Z98.42 Cataract extraction status, left eye; Z90.49 Acquired absence of other specified parts of digestive tract; Z98.51 Tubal ligation status; Z96.659 Presence of unspecified artificial knee joint; K29.50 Unspecified chronic gastritis without bleeding
CPT/HCPCS: 43239; 45378; 82962; 88305; 88342; J7120; J2405

== ENCOUNTER → 2024-08-03 | Outpatient (CLI) | payer MEDICARE, SELFPAY ==
[2024-08-03 12:52] LABS: Vitamin B12 488 pg/mL (211-911)
[2024-08-03 13:10] LABS: Ferritin 8 ng/mL (8-252); Iron 16 ug/dL (50-170); Iron Binding Capacity,Total 402 ug/dL (250-450)
== END | disposition home or self-care (01) ==
LOC: MFPLAB 10:26
PROVIDERS: PCP Family Medicine; Referring Provider Family Medicine; Visit Provider Family Medicine
DX: D64.9 Anemia, unspecified (principal)
CPT/HCPCS: 36415; 82607; 82728; 83540; 83550

== ENCOUNTER → 2024-08-05 | Outpatient (CLI) | payer MEDICARE, SELFPAY ==
[2024-08-05 11:27] LABS: Mucous, Urine 0 SEEN /hpf (<or=2+)
[2024-08-05 14:41] LABS: Absolute Lymphocyte Count 1.41 X10^3/uL (0.83-4.51); Absolute Neutrophil Count 5.4 X10^3/uL (2.0-7.7); Basophil# 0.05 X10^3/uL; Basophil% 0.6 % (0-1); Eosinophils% 2.5 % (0-5); Hematocrit 36.6 % (37-47); Hemoglobin 10.2 g/dL (12.0-15.0); Lymphocyte # 1.41 X10^3/ul (0.83-4.51); Lymphocyte % 17.3 % (19-41); Mean Corp Hgb Conc 27.9 g/dL (32-36); Mean Corpuscular Hgb 21.4 pg (27.0-32.0); Mean Corpuscular Volume 76.7 fL (81-99); Mean Platelet Vol. 10.6 fl (6.2-12.0); Monocyte# 1.02 X10^3/uL; Monocyte% 12.5 % (0-10); NRBC Flagged by Analyzer 0 % (0-5); Neutrophil # 5.44 X10^3/uL (2.7-7.7); Neutrophil % 66.7 % (47-70); Platelet Count 365 K/mm3 (150-450); RBC Distribution Width CV 19.1 % (11.6-14.6); RBC Distribution Width SD 53.1 fl (35.1-43.9); Red Blood Count 4.77 M/mm3 (4.2-5.4); White Blood Count 8.2 K/mm3 (4.4-11.0)
[2024-08-05 15:20] LABS: Color, Urine Yellow (Yellow); Glucose, Dipstick 1000 mg/dl (Normal); Ketone-Dipstick Negative (Negative); Leukocyte Esterase-Dipstick 100 /ul (Negative); Nitrite-Dipstick Positive (Negative); Occult Blood-Urine Negative /ul (Negative); Protein-Dipstick Negative (Negative); Specific Gravity, Urine 1.015 (1.002-1.030); Urine Bilirubin Dipstick Negative (Negative); Urine Clarity Clear (Clear); Urine Urobilinogen Normal (Normal)
[2024-08-05 15:53] LABS: Microalbumin,Random Urine 20.6 mg/L (NO RANGE EST.); Microalbumin:Creatinine Ratio 41.4 mg/g CRE (<30 mg/g CRE)
[2024-08-05 15:55] LABS: Bacteria 4+ /hpf (None Seen); Red Blood Cells-Urine 0-5 SEEN /hpf (0-5); Squamous Epithelial Cells - UA 0-5 SEEN /hpf (5-10); White Blood Cells 5-10 SEEN /hpf (0-5)
[2024-08-05 16:08] LABS: Vitamin B12 452 pg/mL (211-911); Vitamin D,25 Hydroxy 51.4 ng/mL
[2024-08-05 16:16] LABS: ALB/GLOB Ratio 1.2 RATIO (0.9-2.4); AST(SGOT) 14 U/L (15-37); Alanine Aminotransfer ALT/SGPT 17 U/L (13-56); Albumin, Serum 3.8 g/dL (3.2-5.0); Alkaline Phosphatase 66 U/L (45-117); Anion Gap 10 (5-15); BUN 28 mg/dL (7-18); BUN/Creat Ratio 25.2 RATIO (10-20); Calcium,Total 9.4 mg/dL (8.5-10.1); Chloride 107 mmol/L (98-107); Cholesterol 158 mg/dL (200); Creatinine, Serum 1.11 mg/dL (0.55-1.02); EST Glomerular Filtration Rate 50 mL/min (>60); Est Glom Filt Rate - Afr Amer 60 mL/min (>60); Globulin 3.3 g/dL (2.2-4.2); Glucose 117 mg/dL (74-106); High Density Lipoprotein 49 mg/dL; Potassium 4.1 mmol/L (3.5-5.1); Protein, Total 7.1 g/dL (6.4-8.2); Sodium Level 141 mmol/L (136-145); T4 Free Direct 1.05 ng/dL (0.76-1.46); Triglycerides 180 mg/dL; Very Low Density Lipoprotein 36 mg/dL (5-40)
[2024-08-05 17:27] LABS: Hemoglobin A1c 6.4 % (3.8-5.6)
== END | disposition home or self-care (01) ==
LOC: MFPLAB 11:24
PROVIDERS: PCP Family Medicine; Referring Provider Family Medicine; Visit Provider Family Medicine
DX: R39.9 Unspecified symptoms and signs involving the genitourinary system (principal); E11.8 Type 2 diabetes mellitus with unspecified complications; R53.83 Other fatigue
CPT/HCPCS: 80053; 80061; 81001; 82043; 82306; 82570; 82607; 83036; 84439; 84443; 85025; 87077; 87086; 87088; 87186

== ENCOUNTER → 2024-12-08 | Outpatient (CLI) | payer MEDICARE, SELFPAY ==
[2024-12-08 12:30] LABS: Absolute Lymphocyte Count 1.45 X10^3/uL (0.83-4.51); Basophil# 0.06 X10^3/uL; Basophil% 0.7 % (0-1); Eosinophil# 0.21 X10^3/uL; Eosinophils% 2.4 % (0-5); Hematocrit 39.4 % (37-47); Hemoglobin 11.5 g/dL (12.0-15.0); Lymphocyte # 1.45 X10^3/ul (0.83-4.51); Lymphocyte % 16.7 % (19-41); Mean Corp Hgb Conc 29.2 g/dL (32-36); Mean Corpuscular Hgb 22.4 pg (27.0-32.0); Mean Corpuscular Volume 76.8 fL (81-99); Mean Platelet Vol. 10.7 fl (6.2-12.0); Monocyte# 0.96 X10^3/uL; Monocyte% 11.1 % (0-10); NRBC Flagged by Analyzer 0 % (0-5); Neutrophil # 5.97 X10^3/uL (2.7-7.7); Neutrophil % 68.8 % (47-70); Platelet Count 334 K/mm3 (150-450); RBC Distribution Width CV 17.3 % (11.6-14.6); RBC Distribution Width SD 48.2 fl (35.1-43.9); Red Blood Count 5.13 M/mm3 (4.2-5.4); White Blood Count 8.7 K/mm3 (4.4-11.0)
[2024-12-08 13:07] LABS: EST Glomerular Filtration Rate 52 (>60); Iron 20 ug/dL (50-170)
[2024-12-08 13:09] LABS: Microalbumin,Random Urine 16.2 mg/L (NO RANGE EST.); Microalbumin:Creatinine Ratio 328.6 mg/g CRE; Protein, Urine (Random) 12.4 mg/dL (0.0-12.0); Protein:Creat Ratio 252 mg/g CRE (0-200)
[2024-12-08 13:27] LABS: PTHIN 34 pg/mL (11-61)
[2024-12-08 13:32] LABS: ALB/GLOB Ratio 1.4 RATIO (0.9-2.4); AST(SGOT) 21 U/L (<=31); Alanine Aminotransfer ALT/SGPT 12 U/L (<=34); Albumin, Serum 4.3 g/dL (3.4-4.8); Alkaline Phosphatase 71 U/L (35-104); Anion Gap 15 (5-15); BUN 26 mg/dL (4-19); BUN/Creat Ratio 23.7 RATIO (10-20); Calcium,Total 9.6 mg/dL (7.6-11.0); Carbon Dioxide 21.2 mmol/L (21.0-32.0); Chloride 105 mmol/L (98-108); Cholesterol 148 mg/dL (<=200); Creatinine, Serum 1.08 mg/dL (0.70-1.20); Ferritin 13 ng/mL (22-378); Glucose 132 mg/dL (70-99); High Density Lipoprotein 52 mg/dL; Low Density Lipoprotein Calc. 72 mg/dL; Magnesium 2.3 mg/dL (1.5-2.2); Phosphorus 3.9 mg/dL (2.7-4.5); Potassium 4.5 mmol/L (3.3-5.1); Protein, Total 7.3 g/dL (5.9-8.4); Sodium Level 141 mmol/L (133-145); Total Bilirubin 0.19 mg/dL (0.00-1.30); Triglycerides 123 mg/dL; Very Low Density Lipoprotein 25 mg/dL (5-40); cholesterol:hdl ratio screen 2.87
[2024-12-08 14:08] LABS: Iron Binding Capacity,Unsat 362 ug/dL (228-428)
[2024-12-08 14:13] LABS: Hemoglobin A1c 6.8 % (<=5.6)
== END | disposition home or self-care (01) ==
LOC: MFPLAB 10:34
PROVIDERS: PCP Family Medicine; Referring Provider Family Medicine; Visit Provider Family Medicine
DX: E11.22 Type 2 diabetes mellitus with diabetic chronic kidney disease (principal); D50.9 Iron deficiency anemia, unspecified; N18.9 Chronic kidney disease, unspecified
CPT/HCPCS: 80053; 80061; 82043; 82306; 82570; 82728; 83036; 83540; 83550; 83735; 83970; 84100; 84156; 85025

== ENCOUNTER → 2025-04-12 | Outpatient (CLI) | payer MEDICARE, SELFPAY ==
[2025-04-12 15:49] LABS: Hematocrit 37.0 % (37-47); Hemoglobin 11.0 g/dL (12.0-15.0); Immature Granulocytes Count 0.040 X10^3/uL (0.0-0.0); Mean Corp Hgb Conc 29.7 g/dL (32-36); Mean Corpuscular Volume 80.6 fL (81-99); Mean Platelet Vol. 11.1 fl (6.2-12.0); NRBC Flagged by Analyzer 0 % (0-5); Platelet Count 299 K/mm3 (150-450); RBC Distribution Width CV 16.1 % (11.6-14.6); RBC Distribution Width SD 47.5 fl (35.1-43.9); Red Blood Count 4.59 M/mm3 (4.2-5.4); White Blood Count 7.9 K/mm3 (4.4-11.0)
[2025-04-12 17:42] LABS: AST(SGOT) 21 U/L (<=31); Alanine Aminotransfer ALT/SGPT 10 U/L (<=34); Albumin, Serum 4.1 g/dL (3.4-4.8); Alkaline Phosphatase 71 U/L (35-104); Anion Gap 13 (5-15); BUN 25 mg/dL (4-19); BUN/Creat Ratio 25.7 RATIO (10-20); Calcium,Total 9.7 mg/dL (7.6-11.0); Carbon Dioxide 22.9 mmol/L (21.0-32.0); Chloride 105 mmol/L (98-108); Cholesterol 145 mg/dL (<=200); Ferritin 16 ng/mL (22-378); Globulin 2.8 g/dL (2.2-4.2); Glucose 100 mg/dL (70-99); Low Density Lipoprotein Calc. 73 mg/dL; Potassium 4.5 mmol/L (3.3-5.1); Triglycerides 148 mg/dL; Very Low Density Lipoprotein 30 mg/dL (5-40); Vitamin B12 489 pg/mL (180-914); Vitamin D,25 Hydroxy 64.3 ng/mL (30-100); cholesterol:hdl ratio screen 3.39
[2025-04-13 18:45] LABS: Iron Binding Capacity,Total 337 ug/dL (250-450)
[2025-04-13 18:55] LABS: Iron 20 ug/dL (50-170); Iron Binding Capacity,Unsat 317 ug/dL (228-428)
== END | disposition home or self-care (01) ==
LOC: MFPLAB 13:50
PROVIDERS: PCP Family Medicine; Referring Provider Family Medicine; Visit Provider Family Medicine
DX: D50.9 Iron deficiency anemia, unspecified (principal); E11.8 Type 2 diabetes mellitus with unspecified complications; E55.9 Vitamin D deficiency, unspecified; R53.83 Other fatigue
CPT/HCPCS: 36415; 80053; 80061; 82306; 82607; 82728; 83036; 83540; 83550; 85025

== ENCOUNTER → 2025-05-06 | Outpatient (CLI) | payer MEDICARE, SELFPAY ==
[2025-05-06 18:29] LABS: Anion Gap 15 (5-15); BUN 27 mg/dL (4-19); BUN/Creat Ratio 21.7 RATIO (10-20); Calcium,Total 9.9 mg/dL (7.6-11.0); Carbon Dioxide 23.1 mmol/L (21.0-32.0); Chloride 104 mmol/L (98-108); Glucose 133 mg/dL (70-99); Potassium 4.6 mmol/L (3.3-5.1)
== END | disposition home or self-care (01) ==
LOC: MFPLAB 13:58
PROVIDERS: PCP Family Medicine; Visit Provider Family Medicine
DX: E11.59 Type 2 diabetes mellitus with other circulatory complications (principal)
CPT/HCPCS: 36415; 80048

== ENCOUNTER → 2025-05-17 | Outpatient (CLI) | payer MEDICARE, SELFPAY ==
[2025-05-17 13:19] LABS: Anion Gap 16 (5-15); BUN 24 mg/dL (4-19); BUN/Creat Ratio 22.0 RATIO (10-20); Calcium,Total 10.0 mg/dL (7.6-11.0); Carbon Dioxide 21.4 mmol/L (21.0-32.0); Chloride 102 mmol/L (98-108); Glucose 129 mg/dL (70-99); Potassium 4.4 mmol/L (3.3-5.1)
== END | disposition home or self-care (01) ==
LOC: MFPLAB 09:32
PROVIDERS: PCP Family Medicine; Referring Provider Family Medicine; Visit Provider Family Medicine
DX: E11.59 Type 2 diabetes mellitus with other circulatory complications (principal)
CPT/HCPCS: 36415; 80048

== ENCOUNTER → 2025-08-11 | Outpatient (CLI) | payer MEDICARE, SELFPAY ==
[2025-08-11 10:47] LABS: Mucous, Urine 0 SEEN /hpf (<or=2+); Red Blood Cells-Urine 0 SEEN /hpf (0-5)
[2025-08-11 13:03] LABS: Color, Urine Yellow (Yellow); Glucose, Dipstick Normal (Normal); Hematocrit 41.9 % (37-47); Hemoglobin 13.3 g/dL (12.0-15.0); Immature Granulocytes Count 0.050 X10^3/uL (0.0-0.0); Ketone-Dipstick Negative (Negative); Leukocyte Esterase-Dipstick 100 /ul (Negative); Mean Corp Hgb Conc 31.7 g/dL (32-36); Mean Corpuscular Volume 87.3 fL (81-99); Mean Platelet Vol. 11.4 fl (6.2-12.0); NRBC Flagged by Analyzer 0 % (0-5); Nitrite-Dipstick Positive (Negative); Occult Blood-Urine 10 /ul (Negative); Platelet Count 270 K/mm3 (150-450); Protein-Dipstick 30 mg/dl (Negative); RBC Distribution Width CV 15.8 % (11.6-14.6); RBC Distribution Width SD 50.9 fl (35.1-43.9); Red Blood Count 4.80 M/mm3 (4.2-5.4); Specific Gravity, Urine 1.015 (1.002-1.030); Urine Bilirubin Dipstick Negative (Negative); White Blood Count 8.8 K/mm3 (4.4-11.0)
[2025-08-11 13:09] LABS: Squamous Epithelial Cells - UA 5-10 SEEN /hpf (5-10)
[2025-08-11 13:20] LABS: Creatinine, Urine (random) 65.50 mg/dL (28.00-217.00); Microalbumin,Random Urine 25.8 mg/L (<20 mg/L); Protein, Urine (Random) 18.2 mg/dL (0.0-12.0); Protein:Creat Ratio 278 mg/g CRE (0-200)
[2025-08-11 13:40] LABS: FOLATES,SERUM (FOLIC ACID) 13.20 ng/mL (4.60-34.80)
[2025-08-11 13:51] LABS: AST(SGOT) 19 U/L (<=31); Alanine Aminotransfer ALT/SGPT 14 U/L (<=34); Albumin, Serum 4.3 g/dL (3.4-4.8); Alkaline Phosphatase 70 U/L (35-104); Anion Gap 13 (5-15); BUN 34 mg/dL (4-19); BUN/Creat Ratio 28.9 RATIO (10-20); Calcium,Total 10.1 mg/dL (7.6-11.0); Carbon Dioxide 25.0 mmol/L (21.0-32.0); Chloride 103 mmol/L (98-108); Cholesterol 185 mg/dL (<=200); Ferritin 27 ng/mL (22-378); Globulin 2.9 g/dL (2.2-4.2); Glucose 145 mg/dL (70-99); Low Density Lipoprotein Calc. 107 mg/dL; Potassium 4.6 mmol/L (3.3-5.1); Triglycerides 193 mg/dL; Very Low Density Lipoprotein 39 mg/dL (5-40); Vitamin B12 471 pg/mL (180-914); Vitamin D,25 Hydroxy 67.0 ng/mL (30-100); cholesterol:hdl ratio screen 4.20
[2025-08-11 14:08] LABS: Iron 66 ug/dL (50-170); Iron Binding Capacity,Total 352 ug/dL (250-450); Iron Binding Capacity,Unsat 286 ug/dL (228-428)
== END | disposition home or self-care (01) ==
LOC: MFPLAB 10:43
PROVIDERS: PCP Family Medicine; Visit Provider Family Medicine
DX: D50.9 Iron deficiency anemia, unspecified (principal); E11.22 Type 2 diabetes mellitus with diabetic chronic kidney disease; N18.30 Chronic kidney disease, stage 3 unspecified; E55.9 Vitamin D deficiency, unspecified; R82.81 Pyuria
CPT/HCPCS: 36415; 80053; 80061; 81001; 82043; 82306; 82570; 82607; 82728; 82746; 83036; 83540; 83550; 84156; 85025; 87077; 87086; 87088; 87186